=== PATIENT | female | born 1990 | race Caucasian/White ===

== ENCOUNTER 2020-06-18 17:35 | Outpatient (REF) | payer BC, SELFPAY ==
--- NOTE | 2020-06-18 18:15 | MR_ITS ---
EXAMINATION: MR BREAST WITHOUT AND WITH CONTRAST, BILATERAL CLINICAL INFORMATION: 1 year follow-up of previous inferior enhancement in the 3 o'clock position, retroareolar region. High-risk screening. COMPARISON: Ultrasound 05/04/2019, breast MRI 05/01/2019 TECHNIQUE: Imaging was performed with a dedicated breast coil. Prior to the administration of contrast, bilateral axial T1 and bilateral axial T2 weighted sequences were obtained. After the uneventful administration of?7.5 mL of Gadavist, dynamic contrast-enhanced VIBRANT series through the breasts in the axial plane were performed. Subtracted images were performed and reviewed. A delayed sagittal sequence through both breasts was acquired. Additionally, CAD post-processing, including maximum intensity projections, 3-D reconstructions and kinetic analysis, were performed an independent workstation and reviewed by the interpreting radiologist is a portion of this exam. FINDINGS: There is mild to moderate background enhancement. LEFT BREAST: Small area of tnl-mbzm-vexy enhancement in the retroareolar region of the left breast which is progressive in nature measuring 0.6 cm in size and is somewhat less prominent compared to the 05/01/2019 examination. There are multiple patchy areas of ukn-hqoh-eaco enhancement which are slightly more prominent within the left breast, compared to the right. These are new compared to the prior study. For example, patchy areas of xdt-wrss-bnaf enhancement are demonstrated at 3 and 4 o'clock, mid to posterior depth respectively (image 65, image 75 , series 101). These findings, while there are asymmetric, most likely represent background parenchymal enhancement. No definite suspicious dxg-timl-orfc or mass-like enhancement within the left breast. No suspicious mass-like or ypl-ucbr-zmtn enhancement. No abnormal skin thickening or nipple retraction. No abnormal architectural distortion. Review of the T2-weighted images demonstrates no fibrocystic changes or dilated ducts. Review of kinetic images reveals no additional findings. RIGHT BREAST: Tiny stable focus of enhancement in the upper inner quadrant. No suspicious mass-like or kup-xsmg-wbdt enhancement. No abnormal skin thickening or nipple retraction. No abnormal architectural distortion. Review of the T2-weighted images demonstrates no fibrocystic changes or dilated ducts. Review of kinetic images reveals no additional findings. There is no suspicious internal mammary chain or axillary adenopathy. Limited views of the chest and abdomen are unremarkable. MR/MR breast BI wo/w con IMPRESSION: 1. Mildly limited study secondary to background parenchymal enhancement. 2. Less prominent probably benign abp-rbbv-thxm enhancement left breast, retroareolar region. 3. Probably benign gfz-kuug-rvsn enhancement in the lower outer left breast. 4. No convincing MR specific evidence of malignancy within the right breast. ASSESSMENT: LEFT BREAST: BI-RADS 3 - Probably benign finding (s). Short interval followup suggested. RIGHT BREAST: BI-RADS 1-Negative RECOMMENDATIONS: Recommend follow-up MRI in 6-12 months' time with attention to the left breast findings discussed above.
== END 2020-06-18 17:36 | disposition home or self-care (01) ==
LOC: HO.MRI 17:35
PROVIDERS: Visit Provider Nurse Practitioner Family
DX: N64.59 Other signs and symptoms in breast (principal); Z91.89 Other specified personal risk factors, not elsewhere classified
CPT/HCPCS: 77049; A9585

== ENCOUNTER → 2020-06-25 15:52 | Outpatient (BNVA) | payer BC, SELFPAY | PROVIDERS: PCP Nurse Practitioner Family; Visit Provider Surgery ==

== ENCOUNTER → 2020-07-16 09:39 | Outpatient (BNVA) | payer BC, SELFPAY | PROVIDERS: PCP Nurse Practitioner Family; Visit Provider Surgery ==

== ENCOUNTER 2020-10-02 06:50 | Outpatient (REF) | payer BC, SELFPAY ==
[2020-10-02 11:26] LABS: MANUAL DIFF FLAG NO
[2020-10-02 11:38] LABS: Basophils Percent Auto 0.6 % (0-2); Eosinophils Absolute Auto 0.3 X10*3/uL (0.0-0.4); Eosinophils Percent Auto 4.8 % (0-4); Hematocrit 39.3 % (37-47); Hemoglobin 12.8 g/dl (12.0-16.0); Imm Gran Abs Auto 0.02 X10*3/uL (0.00-0.03); Imm Gran Pct Auto 0.4 % (0.0-0.4); Lymphocytes Percent Auto 38.2 % (20-40); Mean Corpuscular HGB Conc 32.6 g/dl (31.0-35.0); Mean Corpuscular Hemoglobin 30.7 pg (27.0-33.0); Mean Corpuscular Volume 94.2 fL (80-98); Monocytes Absolute Auto 0.4 X10*3/uL (0.1-1.2); Monocytes Percent Auto 8.2 % (2-11); Neutrophils Absolute Auto 2.5 X10*3/uL (2.0-8.3); Neutrophils Percent Auto 47.8 % (45-73); Platelet Count 250 X10*3/uL (160-400); Red Blood Count 4.17 X10*6/uL (4.20-5.50); Red Cell Distribution Width 12.6 % (11.0-16.0); White Blood Count 5.2 X10*3/uL (4.8-10.8)
[2020-10-02 11:57] LABS: Alanine Aminotransferase 12 U/L (0-31); Albumin Level 4.1 g/dL (3.5-5.0); Alkaline Phosphatase 46 U/L (39-117); Anion Gap 11 (12-20); Aspartate Amino Transferase 16 U/L (5-31); Bilirubin Total 0.5 mg/dL (0.0-1.0); Blood Urea Nitrogen 15 mg/dL (9-16); Calcium 9.4 mg/dL (8.4-10.2); Carbon Dioxide 26 mmol/L (22-29); Chloride 103 mmol/L (96-108); Cholesterol 232 mg/dL; Estimated Glomerular Filt Rate > 60; Glucose Fasting 78 mg/dL (60-99); HDL Cholesterol 80 mg/dL; Iron 116 mcg/dL (30-160); LDL Cholesterol Calculated 137 mg/dl; Percent Iron Saturation 32 % (15-50); Potassium 4.8 mmol/L (3.3-5.1); Sodium 135 mmol/L (135-145); Total Iron Binding Capacity 360 mcg/dL (228-428); Total Protein 6.7 g/dL (6.5-8.0); Triglycerides 76 mg/dL; Unsaturated Iron Binding 244 ug/dL
[2020-10-02 12:22] LABS: Folate 13.4 ng/mL (> or = 4.0); TSH reflex Free T4 0.78 uIU/mL (0.32-4.0); Vitamin B12 505 pg/mL (200-900)
== END 2020-10-02 06:51 | disposition home or self-care (01) ==
LOC: HO.HMGCLDS 06:50
PROVIDERS: PCP Nurse Practitioner Family; Visit Provider Nurse Practitioner Family
DX: Z00.00 Encounter for general adult medical examination without abnormal findings (principal)
CPT/HCPCS: 36415; 80053; 80061; 82607; 82746; 83540; 84443; 85025

== ENCOUNTER 2020-12-31 18:56 | Outpatient (REF) | payer BC, SELFPAY ==
--- NOTE | ~2020-12-31 | MR_ITS ---
EXAMINATION: MR BREAST WITHOUT AND WITH CONTRAST, BILATERAL CLINICAL INFORMATION: Follow-up probably benign nonmasslike enhancement left breast, retroareolar region. Follow-up probably benign nonmasslike enhancement, left breast, lower outer quadrant. COMPARISON: MRI 06/18/2020, 05/01/2019 TECHNIQUE: Imaging was performed with a dedicated breast coil. Prior to the administration of contrast, bilateral axial T1 and bilateral axial T2 weighted sequences were obtained. After the uneventful administration of?7 mL of Gadavist, dynamic contrast-enhanced VIBRANT series through the breasts in the axial plane were performed. Subtracted images were performed and reviewed. A delayed sagittal sequence through both breasts was acquired. Additionally, CAD post-processing, including maximum intensity projections, 3-D reconstructions and kinetic analysis, were performed an independent workstation and reviewed by the interpreting radiologist is a portion of this exam. FINDINGS: The patient's fibroglandular tissue demonstrates mild background enhancement. LEFT BREAST: Stable nonmasslike enhancement in the retroareolar breast, 4:00 position, measuring 6-7 mm on today's examination (image 73, series 102). Finding is stable compared to the 05/01/2019 MRI. Finding is below threshold on today's evaluation. Overall, the finding is less prominent compared to multiple prior MRIs and is considered benign. No persistent nonmasslike enhancement along the 3:00 and 4:00 axis. No new suspicious nonmasslike or masslike enhancement. No abnormal architectural distortion. Review of the T2 weighted images demonstrates no fibrocystic changes or dilated ducts. Review of kinetic images reveals no additional findings. RIGHT BREAST: No suspicious masslike or non-masslike enhancement. No abnormal skin thickening or nipple retraction. No abnormal architectural distortion. Review of the T2 weighted images demonstrates no fibrocystic changes or dilated ducts. Review of kinetic images reveals no additional findings. There is no suspicious internal mammary chain or axillary adenopathy. Limited views of the chest and abdomen are unremarkable. MR/MR breast BI wo/w con IMPRESSION: Less prominent enhancement in the retroareolar region of the left breast. Resolved nonmasslike enhancement in the 3 and 4:00 positions of the left breast. No MR specific evidence of malignancy in either breast. ASSESSMENT: LEFT BREAST: BI-RADS 2 - Benign Findings. RIGHT BREAST: BI-RADS 2 - Benign Findings. RECOMMENDATIONS: Clinical follow-up. Continued annual mammographic surveillance. Further breast MRI as risk factors dictate.
== END 2020-12-31 18:57 | disposition home or self-care (01) ==
LOC: HO.MRI 18:56
PROVIDERS: Absent Provider Surgery; PCP Nurse Practitioner Family; Visit Provider Nurse Practitioner Family
DX: Z91.89 Other specified personal risk factors, not elsewhere classified (principal); N64.59 Other signs and symptoms in breast
CPT/HCPCS: 77049; A9585

== ENCOUNTER → 2021-01-30 09:32 | Outpatient (BNVA) | payer BC, SELFPAY | PROVIDERS: PCP Nurse Practitioner Family; Visit Provider Surgery ==

== ENCOUNTER → 2021-08-04 09:55 | Outpatient (BNVA) | payer BC, SELFPAY | PROVIDERS: PCP Nurse Practitioner Family; Visit Provider Surgery | DX: Z51.89 Encounter for other specified aftercare (principal); Z91.89 Other specified personal risk factors, not elsewhere classified; Z79.899 Other long term (current) drug therapy; Z80.3 Family history of malignant neoplasm of breast | CPT/HCPCS: 99212 ==

== ENCOUNTER 2022-02-02 18:01 | Outpatient (REF) | payer BC, SELFPAY ==
--- NOTE | ~2022-02-02 | MR_ITS ---
EXAMINATION: MR BREAST WITHOUT AND WITH CONTRAST, BILATERAL CLINICAL INFORMATION: 31-year-old for high-risk screening. Prior history of left breast nipple discharge and non-mass enhancement left breast retroareolar position. COMPARISON: MRI 12/31/2020, 06/18/2020, 05/01/2019. TECHNIQUE: Imaging was performed with a dedicated breast coil. Prior to the administration of contrast, bilateral axial T1 and bilateral axial T2-weighted sequences were obtained. After the uneventful administration of?7.5 mL of Gadavist, dynamic contrast-enhanced VIBRANT series through the breasts in the axial plane were performed. Subtracted images were performed and reviewed. A delayed sagittal sequence through both breasts was acquired. Additionally, CAD post-processing, including maximum intensity projections, 3-D reconstructions and kinetic analysis, was performed an independent workstation and reviewed by the interpreting radiologist as a portion of this exam. FINDINGS: The patient's fibroglandular tissue demonstrates moderate background enhancement. LEFT BREAST: No suspicious mass-like or ypo-irjx-jfnl enhancement. No abnormal skin thickening or nipple retraction. No abnormal architectural distortion. The previously described area of non-mass enhancement in the retroareolar position is no longer visualized. Review of the T2-weighted images demonstrates no fibrocystic changes or dilated ducts. Review of kinetic images reveals no additional findings. RIGHT BREAST: No suspicious mass-like or yfd-ycis-idtv enhancement. No abnormal skin thickening or nipple retraction. There is a stable oval focus of enhancement at 9 o'clock posteriorly. This may represent a small intramammary lymph node. No abnormal architectural distortion. Review of the T2-weighted images demonstrates no fibrocystic changes or dilated ducts. Review of kinetic images reveals no additional findings. There is no suspicious internal mammary chain or axillary adenopathy. Limited views of the chest and abdomen are unremarkable. MR/MR breast BI wo/w con IMPRESSION: No persistent area of enhancement left breast retroareolar position. Small intramammary lymph node right breast. No MR findings suspicious of malignancy. ASSESSMENT: Left Breast: BI-RADS 2 - Benign Right Breast: BI-RADS 2 - Benign RECOMMENDATIONS: Continued routine MRI as per high-risk protocol.
== END 2022-02-02 18:02 | disposition home or self-care (01) ==
LOC: HO.MRI 18:01
PROVIDERS: Visit Provider Surgery
DX: Z12.39 Encounter for other screening for malignant neoplasm of breast (principal); Z91.89 Other specified personal risk factors, not elsewhere classified; Z80.3 Family history of malignant neoplasm of breast
CPT/HCPCS: 77049; A9585

== ENCOUNTER 2022-04-12 12:34 | Outpatient (REF) | payer OTHER, SELFPAY ==
[2022-04-12 12:47] VITALS: BMI 25.7
[2022-04-12 12:48] VITALS: BP 131/74; PULSE 95; RESP 16; TEMP 36.8; O2SAT 100
[2022-04-12 13:34] VITALS: BP 124/84; PULSE 77; RESP 16; O2SAT 100
--- NOTE | 2022-04-12 14:40 | P.OP_ITS ---
Operative Note Operative Note Date of Service: 04/12/22 Narrative: Preoperative diagnosis: Lipoma right forearm Postoperative diagnosis: Same Procedure: Excision lipoma right forearm Surgeon: Mauricio Leyva MD Senior Online Marketing Manager: None Anesthesia: Local Sensorcaine 0.5% with epinephrine Indications for procedure: 31-year-old female patient with an enlarging fatty lump located in the right forearm, documented by ultrasound. Patient is requesting excision. Operative findings: 1 cm lipoma right forearm Specimen: Lipoma right forearm Estimated blood loss: Less than 1 mL Complications: None Procedure details: Patient was brought to the minor surgery suite and placed in a supine position with her right arm over her abdomen. The site of surgery was confirmed by the patient in the right forearm posteriorly. After assuring informed consent the skin was prepped with Betadine and draped in a sterile fashion. Local anesthesia was infiltrated in a longitudinal fashion over the lipoma. A 1 cm incision was then made with a scalpel, carried out through subcutaneous tissue up to the lipoma. The lipoma was then sharply excised from the surrounding subcutaneous tissue. This was passed off the table and sent to pathology for further examination. After assuring adequate hemostasis the skin was closed using a running subcuticular 4-0 Polysorb suture. Steri-Strips, 2 x 2 gauze and Tegaderm were then applied. The patient tolerated the procedure well. She was discharged to home in stable condition.
== END 2022-04-12 12:35 | disposition home or self-care (01) ==
LOC: HO.MS 12:34
PROVIDERS: Visit Provider Surgery
PROC: (CPT 25075; principal; 2022-04-12 13:00)
DX: D17.21 Benign lipomatous neoplasm of skin and subcutaneous tissue of right arm (principal); Z15.01 Genetic susceptibility to malignant neoplasm of breast; Z80.3 Family history of malignant neoplasm of breast; Z80.0 Family history of malignant neoplasm of digestive organs; Z79.899 Other long term (current) drug therapy; Z88.2 Allergy status to sulfonamides; Z88.8 Allergy status to other drugs, medicaments and biological substances
CPT/HCPCS: 25075; 88304

== ENCOUNTER → 2022-06-21 08:07 | Outpatient (BNVA) | payer BC, SELFPAY | PROVIDERS: PCP Nurse Practitioner Family; Visit Provider Internal Medicine | DX: Z13.89 Encounter for screening for other disorder (principal) ==

== ENCOUNTER → 2022-10-12 15:38 | Outpatient (BNVA) | payer BC, SELFPAY | PROVIDERS: PCP Nurse Practitioner Family; Visit Provider Surgery ==

== ENCOUNTER 2023-01-10 07:04 | Day surgery (SDC) | payer BC, SELFPAY ==
[2023-01-06 11:05] VITALS: BMI 27.5
--- NOTE | 2023-01-10 07:45 | MHC.SHP ---
Pre-Procedural Eval Section A Date of Service: 01/10/23 The patient is an INPATIENT: No The History & Physical has been completed within 30 days and I have reviewed it.: No Section B Chief Complaint: Screening,Family history of malignant neoplasm of Relevant Family History (Specify if Yes): Yes Relevant Social History: None Present Medications: see Short Stay Collaborative assessment Medical History: Significant History (Back pain, hyperlipidemia) History of Previous Operations: Relevant previous surgery/procedure and date(s) (History of right breast biopsy S/P excision of lipoma (04/12/22)) Allergies: Allergies Allergy/AdvReac Type Severity Reaction Status Date / Time codeine Allergy Unknown vomiting Verified 10/25/22 16:42 Sulfa (Sulfonamide Allergy Unknown vomitting, Verified 10/25/22 16:42 Antibiotics) vomiting Review of Systems Sugical H&P ROS: Negative: Constitution, Cardiovascular, Respiratory and Gastrointestinal Exam Surgical H&P Exam: Normal: Heart, Normal: Lungs, Normal: Extremities and Normal: Abdomen Plan Diagnosis/Plan: Unchanged I have reviewed the history and physical and performed a pertinent physical examination on my patient. No changes have occurred unless specified. Time Spent With Patient Time: Total time managing care of this patient today ____ minutes.
[2023-01-10 07:48] VITALS: BP 123/86; PULSE 89; RESP 16; TEMP 36.7; O2SAT 100; BMI 28.7
[2023-01-10 07:52] LABS: UPreg QC Valid YES; Urine Pregnancy NEGATIVE (NEGATIVE)
--- NOTE | 2023-01-10 08:29 | W.PM.OPN ---
Operative Note Operative Note Date of Service: 01/10/23 Narrative: COLONOSCOPY TILL CECUM WITH BIOPSIES Pre-op diagnosis: Colon cancer screening, rectal bleeding, monoallelic MUTYH, family history positive for colon cancer (Paternal GF in his 30's) and breast cancer on paternal side. Father had multiple colon polyps Post-op diagnosis:? Colon polyp, diverticulosis, hemorrhoids Endoscopist:? Armando Tarango MD Anesthesia:?MAC Consent: Indications for the procedure and potential complications of bleeding, perforation, reaction to medications and missed diagnosis were discussed with the patient and informed consent was obtained. Instrument: Olympus PCF H 190 L variable stiffness pediatric colonoscope Monitoring: Vital signs and clinical assessment, intermittent blood pressure monitoring, continuous EKG monitoring, Pulse oximetry and Carbon Dioxide monitoring were done throughout the procedure. Please see anesthesia flowsheet. Colon withdrawl time was 15 minutes. Procedure: The patient was placed in the left lateral decubitis position and pre-procedure medications were administered. After a digital rectal examination of the ano-rectum, the video colonoscope was inserted into the rectum and advanced through the colon to the cecum. The colonoscope was slowly withdrawn in a retrograde panoramic fashion and the colon mucosa was carefully examined including a retroflexed view of the rectum. Findings and interventions are described below. Procedure Difficulty: Without difficulty Findings: Terminal Ileum: Not evaluated Cecum: Normal Ascending Colon: Normal Transverse Colon: Normal Descending Colon: Normal Sigmoid Colon: Mild diverticulosis Rectum: A 2-3 mm diminutive appearing polyp - removed with a cold biopsy Ano-rectum: Small internal hemorrhoids Colon preparation: Good Impression and Post Procedure Diagnosis: Colonoscopy Findings: One small polyp removed Mild diverticulosis seen in the sigmoid colon Small hemorrhoids on retroflexed exam. Plan: Await pathology results Patient has an appointment on 01/17/23 in the GI [facility] with Dr Jauregui. Repeat Colonoscopy interval based on path results - in 5 years if polyps are adenomatous and 10 years if polyps are hyperplastic. Above findings were reviewed with the patient and colon polyps and diverticulosis handouts were given in the discharge area ADDENDUM: BIOPSIES SHOWED: Colon, rectal polyp: Colonic mucosa with no specific change; negative for adenomatous dysplasia. FU colonoscopy advised in 5 yrs due to a positive family hx of advanced adenoma in pt's Dad at age less than 50 yrs
--- NOTE | 2023-01-10 08:40 | HO.ANESPROP2 ---
[facility] Active Problems Active Problems: All Active Problems (Updated 10/25/22 @ 17:01 by YOAV Cox) Lumbar back pain (Acute) Monoallelic mutation of MUTYH gene (Acute) Family history of colon cancer (Acute) Family history of colonic polyps (Acute) Lipoma of arm (Acute) Yeast cystitis (Acute) Cellulitis (Acute) Encounter for physical examination (Acute) Dyslipidemia (Acute) Abnormal breast tissue (Acute) At high risk for breast cancer (Acute) Illness (Acute) Past Medical History Medical History Eczema Family History Family History Father Asthma Allergic rhinitis Rheumatoid arthritis Colon polyps FH: testicular cancer, Onset Age: 16 Mother History of skin cancer Paternal Grandfather Colon cancer, Onset Age: 75 Paternal Aunt Breast cancer Sister No problems noted. Sister No problems noted. Paternal Grandmother Breast cancer Paternal Uncle Mouth cancer Maternal Aunt History of uterine cancer Paternal Aunt Breast cancer Paternal Aunt Breast cancer Family/Other Breast cancer Mental health disorder Substance use disorder Family history of problems with anesthesia: No Surgical History Surgical History History of right breast biopsy S/P excision of lipoma (04/12/22) History of Problems with Anesthesia: No Social History Social History Housing: Apartment Alcohol intake: current Alcohol intake frequency: holidays/special occasions only Patient Tobacco Use Status: Never used Tobacco e-Cigarette/Vaping Use: Never Used Second Hand Smoke Exposure: No Are you DNR?: No Advance Directives: No Advance Directives Information Provided: Yes service: No Current occupational status: employed Current occupation: [employer] Current occupational exposures/hazards: Yes Cognitive needs: No Hearing needs: No Vision needs: No Meds Allergies Allergy/AdvReac Type Severity Reaction Status Date / Time codeine Allergy Unknown vomiting Verified 10/25/22 16:42 Sulfa (Sulfonamide Allergy Unknown vomitting, Verified 10/25/22 16:42 Antibiotics) vomiting Home Medications Medication Instructions Recorded Confirmed Last Taken Type desogestrel 0.15 mg-ethinyl 1 tab PO DAILY 03/12/20 10/25/22 01/09/23 History estradiol 0.03 mg tablet fexofenadine 180 mg tablet 180 mg PO DAILY 10/25/22 10/25/22 01/09/23 History (Keiko Allergy) fluticasone propionate 50 1 spray intranasal DAILY 10/25/22 10/25/22 Unknown History mcg/actuation nasal spray,suspension (Allergy Relief (fluticasone)) Exam Exam Date and Time: January 10, 2023 0840 Height,Weight and Vital Signs: Height 5 ft 3 in Weight 73.482 kg Last Vital Signs Temp 98.1 F 01/10/23 07:48 Pulse 89 01/10/23 07:48 Resp 16 01/10/23 07:48 BP 123/86 01/10/23 07:48 Pulse Ox 100 01/10/23 07:48 O2 Del Method Room Air 01/10/23 07:48 Pertinent Lab Results Pertinent Lab Results: Laboratory Tests 01/10/23 07:30 Urine Test NEGATIVE Airway Mallampati Class: I TM Dist: >3cm Neck ROM: Full Heart: rrr Lungs: cta Assessment and Plan Assessment Anesthesia Assessment: Anesthesia Plan Discussed and Chart Reviewed Final Anesthetic Review Family History of Problems with Anesthesia: No History of Problems with Anesthesia: No NPO: Yes ASA Class: II Final Preanesthetic Review: No Changes in Pt Med Stat, Meds/Allgs Chart Reviewed and Consent Obtained/Reviewed Patient Risk: Intermediate Procedure Risk: Intermediate Anesthetic Plan Anesthetic Plan: MAC: Disposition: Standard PACU
[2023-01-10 09:13] VITALS: BP 95/55; PULSE 70; RESP 16; TEMP 36.8; O2SAT 99
[2023-01-10 09:28] VITALS: BP 114/72; PULSE 7; RESP 18; TEMP 37.2; O2SAT 99
== END 2023-01-10 10:24 | disposition home or self-care (01) ==
PROVIDERS: Anesthesiology; PCP Nurse Practitioner Family; Visit Provider Internal Medicine Gastroenterology
PROC: 0DJD8ZZ Inspection of Lower Intestinal Tract, Via Natural or Artificial Opening Endoscopic (ICD-10-PCS; CPT 45378; principal; 2023-01-10 08:30)
DX: Z12.11 Encounter for screening for malignant neoplasm of colon (principal); K62.1 Rectal polyp; K57.30 Diverticulosis of large intestine without perforation or abscess without bleeding; K64.8 Other hemorrhoids; Z83.71 Family history of colonic polyps; E78.5 Hyperlipidemia, unspecified; Z79.899 Other long term (current) drug therapy
CPT/HCPCS: 45380; 81025; 88305; J2250

== ENCOUNTER → 2023-01-10 07:04 | Outpatient (BNV) | payer BC, SELFPAY | PROVIDERS: PCP Nurse Practitioner Family; Visit Provider Internal Medicine Gastroenterology | DX: Z12.11 Encounter for screening for malignant neoplasm of colon (principal); Z86.010 Personal history of colon polyps; K62.5 Hemorrhage of anus and rectum; D12.8 Benign neoplasm of rectum; K57.30 Diverticulosis of large intestine without perforation or abscess without bleeding; K64.8 Other hemorrhoids | CPT/HCPCS: 45380 ==

== ENCOUNTER 2023-01-17 10:29 | Outpatient (AMB) | payer BC, SELFPAY ==
--- NOTE | 2023-01-17 10:39 | MHC.OFFVIS ---
Intake Intake Visit Reasons: follow up from procedure Allergies codeine Allergy (Unknown, Verified 10/25/22 16:42) vomiting Sulfa (Sulfonamide Antibiotics) Allergy (Unknown, Verified 10/25/22 16:42) vomitting, vomiting HPI HPI Comments History of Present Illness Details This is a 31-year-old female with monoallelic MUTYH (record under scanned lab report 07/31/20) family history positive for colon cancer and breast cancer on paternal side (although no FDR affected), who is here to discuss colon cancer screening. Patient reports that due to significant family history, she underwent genetic testing which showed slightly increased risk of colon cancer and she was therefore advised colonoscopies every 3 year. Her last colonoscopy was in 2019, see below. Currently, she does not have any abdominal pain, nausea, vomiting, changes in bowel habits. She reports occasional scant blood on wiping. colo 06/2019: good prep. diverticulosis. colon polyp path was normal tissue. 01/10/23: Colon preparation:? Good? Colonoscopy Findings: One small polyp removed Mild diverticulosis seen in the sigmoid colon Small hemorrhoids on retroflexed exam. Path: Colon, rectal polyp:? Colonic mucosa with no specific change; negative for adenomatous dysplasia. 01/17/23: Seen as televisit today. No acute gastrointestinal issues. [place] findings reviewed and pt reassured. [facility] Medical History Eczema Surgical History History of right breast biopsy S/P excision of lipoma (04/12/22) Family History Father Asthma Allergic rhinitis Rheumatoid arthritis Colon polyps FH: testicular cancer, Onset Age: 16 Mother History of skin cancer Paternal Grandfather Colon cancer, Onset Age: 75 Paternal Aunt Breast cancer Sister No problems noted. Sister No problems noted. Paternal Grandmother Breast cancer Paternal Uncle Mouth cancer Maternal Aunt History of uterine cancer Paternal Aunt Breast cancer Paternal Aunt Breast cancer Family/Other Breast cancer Mental health disorder Substance use disorder Social History Housing: Apartment Alcohol intake: current Alcohol intake frequency: holidays/special occasions only Patient Tobacco Use Status: Never used Tobacco e-Cigarette/Vaping Use: Never Used Second Hand Smoke Exposure: No service: No Current occupational status: employed Current occupation: [employer] Current occupational exposures/hazards: Yes Cognitive needs: No Hearing needs: No Vision needs: No Review of Systems Const All systems reviewed & are unremarkable except as noted in HPI and below Physical Exam video visit: NAD Nonitceric Speaking in full sentences No facial asymmetry Assessment & Plan Assessment & Plan (1) Family history of colonic polyps: Code(s): Z83.71 - Family history of colonic polyps (2) Family history of colon cancer: Code(s): Z80.0 - Family history of malignant neoplasm of digestive organs (3) Monoallelic mutation of MUTYH gene: Code(s): Z15.89 - Genetic susceptibility to other disease Plan I reviewed her genetics testing document and went over it with the patient extensively that MAP is an autosomal recessive condition i.e having a single allele makes her carrier and not at a clinically significant increased risk for colon cancer unless any of her first degree relatives had colon cancer. Given pedigree and trend of fam hx suspect father may have MUTYH but pt is not sure. No polyps noted on colo done last week. Next colonoscopy interval will be based on if father ever had advanced adenoma and at what age. Pt will relay this information to the office over the next few weeks. As per ASGE and NCCN guidelines for monoallelic MUTYH : if father/FDR had colorectal cancer or an advanced adenoma, she will need colonoscopy every 5y. Otherwise will revert to average screening intervals. Telehealth Telehealth Location of provider rendering services: practice address Location of patient: address on file Patient Identification confirmed using: Name, : Yes Telehealth method: video Patient verbally consented to treatment: Yes Patient verbally consented to billing insurance company: Yes Patient informed of any privacy concerns related to visit: Yes Minutes spent on Phone/Video with Pt.: 12 Coding Level of Care Code Tele Est Pt Level 4 (91075) Diagnoses Family history of colonic polyps Z83.71 Family history of colon cancer Z80.0 Monoallelic mutation of MUTYH gene Z15.89
== END 2023-01-17 10:45 | disposition home or self-care (01) ==
LOC: HO.HGI 10:29
PROVIDERS: PCP Nurse Practitioner Family; Visit Provider Internal Medicine
DX: Z83.71 Family history of colonic polyps (principal); Z80.0 Family history of malignant neoplasm of digestive organs; Z15.89 Genetic susceptibility to other disease
CPT/HCPCS: 99214

== ENCOUNTER → 2023-01-17 10:29 | Outpatient (BNVA) | payer BC, SELFPAY | PROVIDERS: PCP Nurse Practitioner Family; Visit Provider Internal Medicine ==

== ENCOUNTER 2023-03-18 16:56 | Outpatient (REF) | payer BC, SELFPAY ==
--- NOTE | ~2023-03-18 | MR_ITS ---
EXAMINATION: MR BREAST WITHOUT AND WITH CONTRAST, BILATERAL CLINICAL INFORMATION: High-risk screening. COMPARISON: MRI 02/02/2022, 12/31/2020, 06/18/2020, 05/01/2019 TECHNIQUE: Imaging was performed with a dedicated breast coil. Prior to the administration of contrast, bilateral axial T1 and bilateral axial T2 weighted sequences were obtained. After the uneventful administration of?7.5 mL of Gadavist, dynamic contrast-enhanced VIBRANT series through the breasts in the axial plane were performed. Subtracted images were performed and reviewed. A delayed sagittal sequence through both breasts was acquired. Additionally, CAD post-processing, including maximum intensity projections, 3-D reconstructions and kinetic analysis, were performed an independent workstation and reviewed by the interpreting radiologist is a portion of this exam. FINDINGS: The patient's fibroglandular tissue demonstrates mild background enhancement. LEFT BREAST: No suspicious masslike or non-masslike enhancement. No abnormal skin thickening or nipple retraction. No abnormal architectural distortion. Review of the T2 weighted images demonstrates no fibrocystic changes or dilated ducts. Review of kinetic images reveals no additional findings. RIGHT BREAST: Stable focus of enhancement, lower inner quadrant, anterior depth. No suspicious masslike or non-masslike enhancement. No abnormal skin thickening or nipple retraction. No abnormal architectural distortion. Review of the T2 weighted images demonstrates no fibrocystic changes or dilated ducts. Review of kinetic images reveals no additional findings. There is no suspicious internal mammary chain or axillary adenopathy. Limited views of the chest and abdomen are unremarkable. MR/MR breast BI wo/w con IMPRESSION: No MR specific evidence of malignancy. ASSESSMENT: LEFT BREAST: BI-RADS 1-Negative RIGHT BREAST: BI-RADS 1-Negative RECOMMENDATIONS: Clinical follow-up. Continued annual mammographic surveillance per high-risk protocol as appropriate. Further breast MRI as risk factors dictate.
[2023-03-18] MEDS: gadobutroL 7.5 ML VIAL IVPUSH (17:58)
== END 2023-03-18 16:57 | disposition home or self-care (01) ==
LOC: HO.MRI 16:56
PROVIDERS: PCP Nurse Practitioner Family; Visit Provider Surgery
DX: Z91.89 Other specified personal risk factors, not elsewhere classified (principal)
CPT/HCPCS: 77049; A9585

== ENCOUNTER 2023-06-14 15:37 | Outpatient (AMB) | payer BC, SELFPAY ==
--- NOTE | 2023-06-14 15:38 | MHC.OFFVIS ---
Intake Vital Signs 06/14/23 15:45 Height 5 ft 3 in Weight 163 lb BMI 28.9 BP 120/80 Blood Pressure Location Lt brachial Position Sitting Intake Visit Reasons: 6 month follow up, breast exam Intake Note: Patient is seen in office for 6 month follow-up, breast examination. Patient c/o:denies any concerns, states she is turning 33 soon and question if she can start getting mammograms B MRI:03/14/23 Supervisor Required: No Assistant Program Manager: Assistant Program Manager Present Accompanied by: Self / Same As Patient Allergies codeine Allergy (Unknown, Verified 06/14/23 15:46) vomiting Sulfa (Sulfonamide Antibiotics) Allergy (Unknown, Verified 06/14/23 15:46) vomitting, vomiting Medication List - Last Reconciled 06/15/23 by Mauricio Leyva MD desogestrel-ethinyl estradiol 0.15-0.03 mg 1 tab PO DAILY fexofenadine (Keiko Allergy) 180 mg PO DAILY fluticasone propionate 50 mcg/actuation (Allergy Relief (fluticasone)) 1 spray intranasal DAILY HPI HPI Comments History of Present Illness Details Iveth Gonzalez is a 32-year-old female patient returning for a high risk breast evaluation.? Family history is significant for a paternal aunt with breast cancer diagnosed at the age of 45 and a 2nd paternal aunt with breast cancer identified at the age of 48, a paternal grandfather with colon cancer at the age of 75, her paternal grandmother with colon cancer at the age of 75 and a paternal great grandmother with breast cancer at the age of 50.? She was previously evaluated by Dr. Stevenson on 11/30/2016 determined to have a lifetime risk of breast cancer of 24.6% placing her at a high risk category.? She underwent bilateral breast MRIs on ?06/18/2020 which revealed a small area of non mass like enhancement in the retroareolar region of the left breast which is progressive in nature measuring 0.6 cm in size and is somewhat less prominent compared to the 05/01/2019 examination.? This was felt to be probably benign but a short term follow up MRI was recommended in 6-12 months.? Follow up MRI on 12/31/2020 revealed only benign findings bilaterally (BI-RADS 2 bilaterally).?MRI on 03/18/2023 revealed no MR specific evidence of malignancy in both breasts (BI-RADS 1 bilaterally). Patient previously underwent [facility] genetic testing on 11/30/2016 which revealed a heterozygous MUTYH mutation.? Repeat Genetic testing on 07/16/2020 revealed a breast cancer risk score of 24% and was positive for the heterozygous MUTYH mutation.? No other new mutations or VUS were identified. She underwent screening colonoscopy (Dr. Tarango) 2 years ago, ?which was normal. A repeat was recommended in three years. ? Screening breast ultrasound performed on 07/05/2018 revealed no suspicious findings in either breast (BI-RADS 1). Screening mammogram is planned for 33 years old. ? Patient is and is currently on control pills.? She has a history of a prior right breast needle core biopsy as a 14-year-old which was benign.? She denies any other breast problems or breast surgery.? She denies current nipple discharge.? She denies Ashkenazi Denominational heritage.?? PFSH Medical History Eczema Surgical History S/P excision of lipoma (04/12/22) History of right breast biopsy Family History Father Asthma Allergic rhinitis Rheumatoid arthritis Colon polyps FH: testicular cancer, Onset Age: 16 Mother History of skin cancer Paternal Grandfather Colon cancer, Onset Age: 75 Paternal Aunt Breast cancer Sister No problems noted. Sister No problems noted. Paternal Grandmother Breast cancer Paternal Uncle Mouth cancer Maternal Aunt History of uterine cancer Paternal Aunt Breast cancer Paternal Aunt Breast cancer Family/Other Breast cancer Mental health disorder Substance use disorder Social History Housing: Apartment Alcohol intake: current Alcohol intake frequency: holidays/special occasions only Patient Tobacco Use Status: Never used Tobacco e-Cigarette/Vaping Use: Never Used Second Hand Smoke Exposure: No service: No Current occupational status: employed Current occupation: [employer] Current occupational exposures/hazards: Yes Cognitive needs: No Hearing needs: No Vision needs: No Review of Systems Const Denies chills, Denies fever(s) and Denies headache(s) ENT Denies dizziness and Denies headache(s) Card Denies chest pain, Denies rapid heart rate, Denies palpitations and Denies slow heart rate Resp Denies chest congestion, Denies cough, Denies pain on inspiration and Denies wheezing GI Denies abdominal pain, Denies bloating, Denies change in stool character, Denies constipation, Denies diarrhea, Denies nausea, Denies vomiting and Denies hematemesis Denies nipple discharge Musc Denies back pain, Denies arthralgias, Denies joint swelling and Denies numbness Skin/Breast Denies breast swelling, Denies breast skin changes, Denies breast pain, Denies breast mass, Denies change in breast shape, Denies change in pigmentation, Denies nipple discharge, Denies erythema and Denies rash Neuro Denies dizziness, Denies headache(s) and Denies numbness Psych Denies anxiety and Denies depression Endo Denies palpitations Kwame/Lymph Denies easy bleeding, Denies easy bruising and Denies lymphadenopathy Aller/Immun Denies wheezing Physical Exam Vital Signs: Last Vital Signs BP 120/80 06/14/23 15:45 BMI result Body Mass Index 28.9 Const General: healthy appearing, no acute distress and well developed Nutritional Appearance: well nourished Orientation/consciousness: patient oriented x3 Limitations: no limitations HEENT Head: Yes normocephalic and Yes atraumatic Ears: hearing grossly normal bilaterally Eyes Sclerae: sclerae normal EOM: EOMs intact bilaterally Neck Neck: Yes no lymphadenopathy and Yes trachea midline Chest Other: Left breast: No skin change, no nipple retraction, no nipple discharge, no palpable mass, no enlarged lymph nodes. Diffuse fibrocystic change. Right breast: No skin change, no nipple retraction, no nipple discharge, no palpable mass, no enlarged lymph nodes, fibrocystic changes throughout the breast. Resp Effort & Inspection: normal respiratory effort GI Inspection: Yes normal to inspection Skin General skin exam: dry skin, no ecchymosis and no erythema Neuro General: patient oriented x3 Extrem Other: Right forearm with a 1 cm round mobile soft tissue mass within the subcutaneous tissue as noted below, consistent with a lipoma. General: Yes no clubbing, cyanosis or edema Assessment & Plan Assessment & Plan (1) Family history of colon cancer: Code(s): Z80.0 - Family history of malignant neoplasm of digestive organs (2) At high risk for breast cancer: Code(s): Z91.89 - Other specified personal risk factors, not elsewhere classified (3) Family history of breast cancer: Code(s): Z80.3 - Family history of malignant neoplasm of breast Plan 32-year-old female patient returning for follow-up breast examination. Her genetic testing revealed a single MUTYH clinically significant mutation identified. Her breast cancer risk score for remaining lifetime risk is 24% placing her well above the 20% threshold for high risk. Examination today reveals no new suspicious findings in either breast. She does have bilateral dense breast tissue which is unchanged. Her most recent breast MRI revealed no suspicious findings in either breast (BI-RADS 1). I recommended starting screening mammography which will be requested six-month following her recent MRI. She will follow-up in 6 months for routine breast examination but is welcome to call sooner for any new concerns. Orders: Orders MM screening mammo BI 06/14/23 Z80.0 - Family history of malignant neoplasm of digestive organs, Z80.3 - Family history of malignant neoplasm of breast, Z91.89 - Other specified personal risk factors, not elsewhere classified Coding Level of Care Code Est Pt Level 3 (05818) Diagnoses Family history of colon cancer Z80.0 At high risk for breast cancer Z91.89 Family history of breast cancer Z80.3
[2023-06-14 15:45] VITALS: BP 120/80; BMI 28.9
== END 2023-06-14 16:04 | disposition home or self-care (01) ==
PROVIDERS: PCP Nurse Practitioner Family; Visit Provider Surgery
DX: Z80.0 Family history of malignant neoplasm of digestive organs (principal); Z80.3 Family history of malignant neoplasm of breast; Z91.89 Other specified personal risk factors, not elsewhere classified
CPT/HCPCS: 99213

== ENCOUNTER → 2023-06-14 15:37 | Outpatient (BNVA) | payer BC, SELFPAY | PROVIDERS: PCP Nurse Practitioner Family; Visit Provider Surgery ==

== ENCOUNTER 2023-10-29 06:36 | Outpatient (REF) | payer BC, SELFPAY ==
[2023-10-29 11:10] LABS: MANUAL DIFF FLAG NO
[2023-10-29 11:12] LABS: Basophils Percent Auto 0.7 % (0-2); Eosinophils Absolute Auto 0.1 X10*3/uL (0.0-0.4); Eosinophils Percent Auto 1.2 % (0-4); Hematocrit 40.8 % (37.0-47.0); Hemoglobin 13.7 g/dl (12.0-16.0); Imm Gran Abs Auto 0.02 X10*3/uL (0.00-0.03); Imm Gran Pct Auto 0.4 % (0.0-0.4); Lymphocytes Absolute Auto 1.9 X10*3/uL (1.2-4.9); Lymphocytes Percent Auto 33.3 % (20-40); Mean Corpuscular HGB Conc 33.6 g/dl (31.0-35.0); Mean Corpuscular Hemoglobin 30.9 pg (27.0-33.0); Mean Corpuscular Volume 91.9 fL (80.0-98.0); Mean Platelet Volume 9.9 fL (9.4-12.3); Monocytes Absolute Auto 0.4 X10*3/uL (0.1-1.2); Monocytes Percent Auto 7.8 % (2-11); Neutrophils Absolute Auto 3.2 x10*3/uL (2.0-8.3); Neutrophils Percent Auto 56.6 % (45-73); Platelet Count 211 X10*3/uL (160-400); Red Blood Count 4.44 X10*6/uL (4.20-5.50); Red Cell Distribution Width 12.1 % (11.0-16.0); White Blood Count 5.6 X10*3/uL (4.8-10.8)
[2023-10-29 11:14] LABS: Appearance Urine Clear; Color Urine Dark Yellow; Glucose Urine UA Negative (Negative); Leukocyte Esterase Urine Negative (Negative); Nitrite Urine Negative (Negative); PH 5.5 (5.0-9.0); UMIC TRIGGER UACC YES; Urine Blood Trace (Negative); Urine Ketones Trace mg/dL (Negative); Urine Protein Negative (Neg-Trace)
[2023-10-29 11:30] LABS: Alanine Aminotransferase 12 U/L (0-31); Albumin Level 4.3 g/dL (3.5-5.0); Alkaline Phosphatase 39 U/L (39-117); Anion Gap 15 (12-20); Aspartate Amino Transferase 17 U/L (5-31); Bilirubin Total 0.7 mg/dL (0.0-1.0); Blood Urea Nitrogen 12 mg/dL (9-16); Calcium 9.9 mg/dL (8.4-10.2); Carbon Dioxide 24 mmol/L (22-29); Chloride 102 mmol/L (96-108); Cholesterol 208 mg/dL (<200); Estimated Glomerular Filt Rate > 60; Glucose Fasting 80 mg/dL (60-99); HDL Cholesterol 84 mg/dL (>40); LDL Cholesterol Calculated 109 mg/dL (<100); Sodium 137 mmol/L (135-145); Total Protein 7.2 g/dL (6.5-8.0); Triglycerides 76 mg/dL (<150)
[2023-10-29 11:48] LABS: TSH reflex Free T4 0.83 uIU/mL (0.32-4.0)
[2023-10-29 12:00] LABS: Bacteria Urine Trace (None Seen); Hyaline Casts Urine 0-2 /LPF (0-2); WBC Urine 0-5 /HPF (0-5)
== END 2023-10-29 06:37 | disposition home or self-care (01) ==
LOC: HO.HMGCLDS 06:36
PROVIDERS: PCP Nurse Practitioner Family; Visit Provider Nurse Practitioner Family
DX: Z00.00 Encounter for general adult medical examination without abnormal findings (principal)
CPT/HCPCS: 36415; 80053; 80061; 81001; 84443; 85025

== ENCOUNTER 2023-10-31 09:04 | Outpatient (AMB) | payer BC, SELFPAY ==
--- NOTE | 2023-10-31 09:04 | MHC.PC.OV ---
Vital Signs 10/31/23 09:06 Height 5 ft 3 in Weight 160 lb BMI 28.3 BP 118/80 Blood Pressure Location Lt brachial Position Sitting Pulse 86 Pulse Source Pulse Oximeter Pulse Oximetry (%) 98 Oxygen Delivery Method Room Air Intake Visit Reasons: PE Intake Note: Patient here for physical exam. Pap: 2022 due every 3yrs. Allergies codeine Allergy (Unknown, Verified 10/31/23 10:04) vomiting Sulfa (Sulfonamide Antibiotics) Allergy (Unknown, Verified 10/31/23 10:04) vomitting, vomiting Medication List - Last Reconciled 10/31/23 by DIOMEDES Cox-IRVIN desogestrel-ethinyl estradiol 0.15-0.03 mg 1 tab PO DAILY fexofenadine (Keiko Allergy) 180 mg PO DAILY fluticasone propionate 50 mcg/actuation (Allergy Relief (fluticasone)) 1 spray intranasal DAILY lorazepam 1 mg PO DAILY PRN multivitamin 1 tab PO DAILY Tobacco use date assessed: 10/31/23 Dental Screening Dental Screen Date: 10/31/23 Did you have a dental visit in the last 12 months?: Yes Did you have a dental problem in the last 6 months where you did not have access to dental care?: No Was dental information given to patient?: Patient has dentist HPI PE HPI Details Pt is here for a PE. Labs were already performed. 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 Micro hem noted. She has had imaging and a cystoscopy in the past (saw urology), denies any pelvic pains. Pt does not smoke. Will order UA and urine cytology, Dyslipidemia: Will repeat labs for in a couple of months. 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 Sister No problems noted. Paternal Grandmother Breast cancer Paternal Uncle Mouth cancer Maternal Aunt History of uterine cancer Paternal Aunt Breast cancer Paternal Aunt Breast cancer Family/Other Breast cancer Mental health disorder Substance use disorder Social History Housing: Apartment Alcohol intake: current Alcohol intake frequency: holidays/special occasions only Patient Tobacco Use Status: Never used Tobacco e-Cigarette/Vaping Use: Never Used Second Hand Smoke Exposure: No service: No Current occupational status: employed Current occupation: [email or web address] Current occupational exposures/hazards: Yes Cognitive needs: No Hearing needs: No Vision needs: No Questionnaire PHQ-9 Over the last 2 weeks, how often have you been bothered by any of the following problems? 1. Little interest or pleasure in doing things: not at all 2. Feeling down, depressed, or hopeless: not at all 3. Trouble falling or staying asleep, or sleeping too much: not at all 4. Feeling tired or having little energy: several days 5. Poor appetite or overeating: not at all 6. Feeling bad about yourself - or that you are a failure or have let yourself or your family down: not at all 7. Trouble concentrating on things, such as reading the newspaper or watching television: not at all 8. Moving or speaking so slowly that other people could have noticed. Or the opposite - being so fidgety or restless that you have been moving around a lot more than usual: not at all 9. Thoughts that you would be better off or of hurting yourself in some way: not at all Total score: 1 Depression Screening Interpretation: Negative Depression Screening Done: Yes 10600 - PHQ-9 Billing: Yes Source: Developed by Drs. aGrrison Gomez, Essence Coats, Christian Lara and colleagues, with an educational chely from [employer] Thrive Questionnaire Date Thrive assessed: 10/31/23 I am a: Patient What is your living situation today?: I have a steady place to live Within the past 12 months, did the food you bought not last and you didn't have the money to get more?: Never true Within the past 12 months, did you worry whether your food would run out before you got money to buy more?: Never true Do you have trouble paying for medicines?: No Do you have trouble getting transportation to medical appointments?: No Do you have trouble paying your heating and electricity bill?: No Do you have trouble taking care of your child, family member or friend?: No Do you have trouble with day-to-day activities such as bathing, preparing meals, shopping, managing finances, etc.?: No Are you currently unemployed and looking for a job?: No Are you interested in more education?: No Currently or been in a relationship where the following occur: no concerns reported THRIVE Score: 0 AUDIT C Alcohol Use Questionnaire (AUDIT-C) 1. How often do you have a drink containing alcohol?: 2-4 times a month 2. How many drinks containing alcohol do you have on a typical day when you are drinking?: 1 or 2 3. How often do you have six or more drinks on one occasion?: Never Total Score: 2 Score Reviewed/Action Taken: Yes NICOLASA-7 AMB Questionnaire NICOLASA-7 Date NICOLASA - 7 assessed: 10/31/23 Feeling nervous, anxious, or on edge: 1 = Several days Not being able to stop or control worryin = Not at all Worrying too much about different things: 0 = Not at all Trouble relaxin = Not at all Being so restless that it is hard to sit still: 0 = Not at all Becoming easily annoyed or irritable: 0 = Not at all Feeling afraid as if something awful might happen: 1 = Several days Total NICOLASA-7 score (0-4 normal; 5-9 mild; 10-14 moderate; 15-21 severe): 2 Source: Developed by Drs. Garrison Gomez, Essence Coats, Christian Lara and colleagues, with an educational chely from [employer] NICOLASA-7 Assessment Billing NICOLASA-7 Assessment Tool: NICOLASA-7 Assessment 26349 Review of Systems Const Denies chills and Denies fever(s) Eyes Denies blurry vision ENT Denies vertigo, Denies dizziness and Denies sore throat Card Denies chest pain at rest, Denies chest pain with activity, Denies diaphoresis, Denies dyspnea and Denies dyspnea on exertion Resp Denies cough, Denies dyspnea, Denies dyspnea on exertion and Denies wheezing GI Denies abdominal pain, Denies melena, Denies hematochezia, Denies constipation, Denies diarrhea and Denies loose stools Denies hematuria Musc Denies numbness and Denies tingling Skin/Breast Denies lesions Neuro Denies vertigo, Denies dizziness, Denies numbness and Denies tingling Psych Denies anxiety, Denies depression, Denies homicidal ideation, Denies suicidal ideation and Denies other (substance abuse) Aller/Immun Denies wheezing Physical exam (Primary Care) Vital Signs: Last Vital Signs Pulse 86 10/31/23 09:06 BP 118/80 10/31/23 09:06 Pulse Ox 98 10/31/23 09:06 Oxygen Delivery Method Room Air 10/31/23 09:06 BMI result Body Mass Index 28.3 Tobacco/Smoking Status: Tobacco use Status Tobacco use date assessed 10/31/23 10/31/23 09:11 Patient Tobacco Use Status Never used Tobacco 10/31/23 09:07 e-Cigarette/Vaping Use Never Used 10/31/23 09:07 PHQ-9: PHQ-9 Score PHQ-9: Total score 1 10/31/23 09:17 Depression Screening Interpretation: Negative Thrive Assessment: Date of Thrive Assessment Date Thrive assessed 10/31/23 10/31/23 09:13 Currently or been in a relationship where the following occur: no concerns reported Const General: cooperative Nutritional Appearance: well nourished Orientation/consciousness: patient oriented x3 HENMT Head: Yes normal to inspection, Yes normocephalic and Yes atraumatic Ears: TM's normal bilaterally Eyes General: appearance normal, both eyes and all related structures Alignment and Position: alignment normal and position normal Neck Neck: Yes normal visual inspection and Yes no lymphadenopathy Thyroid: Thyroid normal Resp Effort & Inspection: normal respiratory effort Auscultation: clear to auscultation bilaterally Cardio Rate: regular rate Rhythm: regular rhythm Heart sounds: S1 normal heart sound present, S2 normal heart sound present and no murmurs GI Palpation (GI): Soft to palpation and nontender Auscultation: normal bowel sounds General: Yes no CVA tenderness Back/Spine/Pelvis Back: no CVA tenderness Skin Rashes: no rashes Neuro General: patient oriented x3, moves all extremities, no focal motor deficits and deep tendon reflexes 2+ bilaterally Romberg Test: Negative Psych Appearance: grossly normal Mental Status: mental status grossly normal Speech and movement: Normal speech and movement present Affect: normal affect Attitude: cooperative Thought process: Normal thought process present Thought content: Normal thought content present Insight: Good insight present (Psych) Judgement: Good judgement present (Psych) Assessment and Plan Assessment & Plan (1) Microscopic hematuria: Code(s): R31.29 - Other microscopic hematuria Plan: Urine cytology and repeat UA ordered (2) Dyslipidemia: Code(s): E78.5 - Hyperlipidemia, unspecified Plan: Labs ordered (3) Encounter for physical examination: Code(s): Z00.00 - Encounter for general adult medical examination without abnormal findings Plan The patient agreed to the use of a medical billing manager for this encounter. Scribed for YOAV Reid by Marialuisa Santiago medical billing manager, on 10/31/2023 at 09:25 EST. Orders: Orders Urine Cytology Today R31.29 - Other microscopic hematuria Comprehensive [place]. Panel Fast Today E78.5 - Hyperlipidemia, unspecified Lipid Panel Today E78.5 - Hyperlipidemia, unspecified Complete Blood Count Auto Diff Today E78.5 - Hyperlipidemia, unspecified Coding Level of Care Code Est Pt Prev Care 18-39y(38867) Diagnoses Microscopic hematuria R31.29 Dyslipidemia E78.5 Encounter for physical examination Z00.00 Additional Codes NICOLASA-7 Assessment Billing - NICOLASA-7 Assessment Tool: NICOLASA-7 Assessment 44701 ([id number])
[2023-10-31 09:06] VITALS: BP 118/80; PULSE 86; O2SAT 98; BMI 28.3
== END 2023-10-31 09:54 | disposition home or self-care (01) ==
PROVIDERS: PCP Nurse Practitioner Family; Visit Provider Nurse Practitioner Family
DX: Z00.00 Encounter for general adult medical examination without abnormal findings (principal); R31.29 Other microscopic hematuria; E78.5 Hyperlipidemia, unspecified
CPT/HCPCS: 99395

== ENCOUNTER 2023-10-31 09:57 | Outpatient (REF) | payer BC, SELFPAY ==
[2023-10-31 13:26] LABS: Urine Cytology See Pathology rpt
== END 2023-10-31 09:58 | disposition home or self-care (01) ==
LOC: HO.HMGCLDS 09:57
PROVIDERS: PCP Nurse Practitioner Family; Visit Provider Nurse Practitioner Family
DX: R31.29 Other microscopic hematuria (principal)
CPT/HCPCS: 88112

== ENCOUNTER 2023-11-22 10:18 | Outpatient (AMB) | payer BC, SELFPAY ==
--- NOTE | 2023-11-22 10:22 | MHC.OFFVIS ---
Vital Signs 11/22/23 10:23 Height 5 ft 3 in Comment Pt request no VS today visit Intake Visit Reasons: 6 month follow up, breast exam Intake Note: Patient is seen in office for 6 month follow-up, breast examination. Patient c/o: reports no breast complaints at this time. mm:11/14/23 MRI:03/18/23 Lime Trimmer Required: No Accompanied by: Self / Same As Patient Allergies codeine Allergy (Unknown, Verified 11/22/23 10:27) vomiting Sulfa (Sulfonamide Antibiotics) Allergy (Unknown, Verified 11/22/23 10:27) vomitting, vomiting Medication List - Last Reconciled 11/22/23 by Mauricio Leyva MD desogestrel-ethinyl estradiol 0.15-0.03 mg 1 tab PO DAILY fexofenadine (Keiko Allergy) 180 mg PO DAILY fluticasone propionate 50 mcg/actuation (Allergy Relief (fluticasone)) 1 spray intranasal DAILY lorazepam 1 mg PO DAILY PRN multivitamin 1 tab PO DAILY HPI Comments Details: 33-year-old female, previous patient of Dr. Stevenson returning for a high risk breast evaluation.? Family history is significant for a paternal aunt with breast cancer diagnosed at the age of 45 and a 2nd paternal aunt with breast cancer identified at the age of 48, a paternal grandfather with colon cancer at the age of 75, her paternal grandmother with colon cancer at the age of 75 and a paternal great grandmother with breast cancer at the age of 50.? Her lifetime risk of breast cancer was determined to be 24.6% placing her at a high risk category.? She underwent bilateral breast MRIs on ?06/18/2020 which revealed a small area of non mass like enhancement in the retroareolar region of the left breast which is progressive in nature measuring 0.6 cm in size and is somewhat less prominent compared to the 05/01/2019 examination.? This was felt to be probably benign but a short term follow up MRI was recommended in 6-12 months.? Follow up MRI on 12/31/2020 revealed only benign findings bilaterally (BI-RADS 2 bilaterally).?MRI on 03/18/2023 revealed no MR specific evidence of malignancy in both breasts (BI-RADS 1 bilaterally). Patient previously underwent [facility] genetic testing on 11/30/2016 which revealed a heterozygous MUTYH mutation.? Repeat Genetic testing on 07/16/2020 revealed a breast cancer risk score of 24% and was positive for the heterozygous MUTYH mutation.? No other new mutations or VUS were identified. She is being followed by Dr. Tarango from Gastroenterology. Her most recent breast MRI of 03/18/2024 revealed no MR specific evidence of malignancy (BI-RADS 1). Mammogram performed by [facility] on 11/14/2023 also revealed no mammographic evidence of malignancy (BI-RADS 1). ? Patient is and is currently on control pills.? She has a history of a prior right breast needle core biopsy as a 14-year-old which was benign.? She denies any other breast problems or breast surgery.? She denies current nipple discharge.? She denies Ashkenazi Uats[place] heritage.?? [facility] Medical History Monoallelic mutation of MUTYH gene Polyposis associated with heterozygous mutation in MUTYH gene Eczema Surgical History S/P excision of lipoma (04/12/22) History of right breast biopsy Family History Father Asthma Allergic rhinitis Rheumatoid arthritis Colon polyps FH: testicular cancer, Onset Age: 16 Mother History of skin cancer Paternal Grandfather Colon cancer, Onset Age: 75 Paternal Aunt Breast cancer Sister No problems noted. Sister No problems noted. Paternal Grandmother Breast cancer Paternal Uncle Mouth cancer Maternal Aunt History of uterine cancer Paternal Aunt Breast cancer Paternal Aunt Breast cancer Family/Other Breast cancer Mental health disorder Substance use disorder Social History Housing: Apartment Alcohol intake: current Alcohol intake frequency: holidays/special occasions only Patient Tobacco Use Status: Never used Tobacco e-Cigarette/Vaping Use: Never Used Second Hand Smoke Exposure: No service: No Current occupational status: employed Current occupation: [employer] Current occupational exposures/hazards: Yes Cognitive needs: No Hearing needs: No Vision needs: No Review of Systems Const All systems reviewed & are unremarkable except as noted in HPI and below Physical Exam Const General: healthy appearing, no acute distress and well developed Chest Other: Left breast: No skin change, no nipple retraction, no nipple discharge, no palpable mass, no enlarged lymph nodes. Diffuse fibrocystic change. Right breast: No skin change, no nipple retraction, no nipple discharge, no palpable mass, no enlarged lymph nodes, fibrocystic changes throughout the breast. Resp Effort & Inspection: normal respiratory effort GI Inspection: Yes normal to inspection Skin General skin exam: dry skin, no ecchymosis and no erythema Extrem Other: Right forearm with a 1 cm round mobile soft tissue mass within the subcutaneous tissue as noted below, consistent with a lipoma. General: Yes no clubbing, cyanosis or edema Assessment & Plan Assessment & Plan (1) At high risk for breast cancer: Code(s): Z91.89 - Other specified personal risk factors, not elsewhere classified Category: Medical (2) Family history of breast cancer: Code(s): Z80.3 - Family history of malignant neoplasm of breast Category: Medical (3) Family history of colon cancer: Code(s): Z80.0 - Family history of malignant neoplasm of digestive organs Category: Medical Plan 33-year-old female patient returning for follow-up breast examination. Her genetic testing revealed a single MUTYH clinically significant mutation identified. Her breast cancer risk score for remaining lifetime risk is 24% placing her well above the 20% threshold for high risk. Examination today reveals no new suspicious findings in either breast. She does have bilateral dense breast tissue which is unchanged. Her most recent breast MRI performed on 03/18/2024 revealed no suspicious findings in either breast (BI-RADS 1). A screening mammogram performed on 11/14/2023 revealed no mammographic evidence of malignancy (BI-RADS 1). She will continue her annual mammogram and MRI alternating every 6 months and follow-up in 6 months for breast examination. She is welcome to call sooner for any new concerns. She will continue her GI follow-up with Dr. Tarango. Orders: Orders breast BI wo/w con 03/19/24 Z80.3 - Family history of malignant neoplasm of breast, Z91.89 - Other specified personal risk factors, not elsewhere classified Coding Level of Care Code Est Pt Level 3 (22764) Diagnoses At high risk for breast cancer Z91.89 Family history of breast cancer Z80.3 Family history of colon cancer Z80.0
== END 2023-11-22 10:51 | disposition home or self-care (01) ==
PROVIDERS: PCP Nurse Practitioner Family; Visit Provider Surgery
DX: Z80.3 Family history of malignant neoplasm of breast (principal); Z80.0 Family history of malignant neoplasm of digestive organs; Z91.89 Other specified personal risk factors, not elsewhere classified
CPT/HCPCS: 99213

== ENCOUNTER → 2023-11-22 10:18 | Outpatient (BNVA) | payer BC, SELFPAY | PROVIDERS: PCP Nurse Practitioner Family; Visit Provider Surgery ==

== ENCOUNTER → 2024-06-11 09:02 | Outpatient (BNV) | payer BC, SELFPAY | PROVIDERS: PCP Nurse Practitioner Family; Visit Provider Internal Medicine | DX: Z80.3 Family history of malignant neoplasm of breast (principal) | CPT/HCPCS: 77049 ==

== ENCOUNTER 2024-06-11 09:04 | Outpatient (REF) | payer BC, SELFPAY ==
--- NOTE | ~2024-06-11 | MR_ITS ---
EXAMINATION: MR BREAST WITHOUT AND WITH CONTRAST, BILATERAL CLINICAL INFORMATION: MRI screening surveillance. Strong family history of breast cancer including grandmother and 2 aunts. COMPARISON: Breast MRI March 18, 2023 February 02, 2022, December 31, 2020, June 18, 2020, May 01, 2019. TECHNIQUE: MR imaging of the breast was performed using T1, T2 and fat saturated techniques. Dynamic multiphase imaging was also performed after administration of intravenous gadolinium contrast agent. Computer generated 3-D reconstruction was performed. FINDINGS: There is heterogeneous fibroglandular breast tissue with marked background enhancement with bilateral symmetric scattered enhancing foci not significantly changed from prior MRIs. LEFT BREAST: No suspicious enhancing masses or areas of nonmass enhancement. No architectural distortion. No internal mammary or axillary adenopathy. RIGHT BREAST: Areas nonmass enhancement in the right upper central breast 7.6 cm behind the nipple series 1041 image 62/126 measuring approximately 17 x 3 mm. No other suspicious enhancing masses or areas of nonmass enhancement. No architectural distortion. No internal mammary or axillary adenopathy. Limited views of the chest and abdomen are unremarkable. MR/MR breast BI wo/w con IMPRESSION: Left: Negative. Right: Area of nonmass enhancement measuring up to 17 mm in the upper central right breast posterior depth. Recommend right breast ultrasound at this time. If no ultrasound correlate is seen then recommend 6 month follow-up MRI for further evaluation of stability. ASSESSMENT: LEFT BREAST: BI-RADS 1-Negative RIGHT BREAST: BI-RADS 3 probably benign. Recommend 6 month follow-up MRI for further evaluation of stability. RECOMMENDATIONS: Yearly screening mammography. Recommend 6 month follow-up breast MRI. Electronically signed by: Fiona Burrows DO 06/12/2024 04:28 PM EST
--- OUTSIDE RECORDS SUMMARY | 2024-06-11 09:32 | XMS_ITS | Continuity of Care Document ---
Author Organization [facility] Address [address] [address] Phone Care Team Providers Care Fur Finisher Name Role Phone Adrian READ, Aparna Unavailable [...] Mins - Telemedicine [facility], [address] [place] [address], [id number], tel:[phone] VR - [place] [facility] Venous insufficiency (chronic) (peripheral) 2 Adrian Braun. [address] [place] [address], [address], [place], [place], [id number] , [place]. tel:[phone] Referring Provider: Kboy Delgado, [address] [place] [address] [address], [place], [address]. tel:[phone] [facility] [address], [id number], [place] tel:[phone] VR - [place] - [place] No Information 2 Presley Whalen. [address] [place] [address], [address], [place], [address], [place]. tel:[phone] Referring Provider: Koby Delgado, [address] [place] [address] [address], [place], [address]. tel:[phone] Office/Outpt E&M Established 15 Mins [facility] [address], [id number], [place] tel:[phone] VR - [place] - [place] Body mass index (BMI) 26.0-26.9, adultLocalized edema 2 Presley Whalen. [address], [address], [place], [address], [place]. tel: [phone] Referring Provider: Koby Delgado, [address], [place], [address]. tel:[phone] [facility], [address] [facility], [place], [place], [id number], [place] tel:[phone] VR - [place] - [place] Chronic venous htn w oth comp of bilateral low extrm 2 Presley Whalen. [address], [address], [place], [address], [place]. tel: [phone] Referring Provider: Koby eDlgado, [address] [place] [address] [address], [place], [address]. tel:[phone] [facility], [address] [place], [place] [address]e [address], [place], [place], [id number], [place] tel:[phone] VR - [place] - [place] Spider Veins - (Telangiectasia ) 2 Presley Whalen. [address], [address], [place], [address], [place]. tel: [phone] Referring Provider: Koby Delgado, [address], [place], [address]. 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 [address] [place] [address], [address], [place], [address], [place]. tel: [phone] Referring Provider: Koby Delgado, [address], [place], [address]. tel:[phone] [facility], [address] [facility], [place], [place], [id number], [place] tel:[phone] VR - [place] - [place] Spider Veins - (Telangiectasia ) 2 Presley Whalen. [address], [address], [place], [address], [place]. tel: [phone] Referring Provider: Koby Delgado, [address], [place], [address]. tel:[phone] [facility], [address] [facility] [address], [place], [place], [id number], [place] tel:[phone] VR - [place] - [place] Encntr for f/u exam aft trtmt for cond oth than malig neoplmChronic venous hypertension w oth comp of l low extrem 2 Presley Whalen. [address] [place] [address], [address], [place], [address], [place]. tel: [phone] Referring Provider: Koby Delgado, [address] [place] [address] [address], [place], [address]. tel:[phone] [facility], [address] [facility], [place], [place], [id number], [place] tel:[phone] VR - [place] - [place] Encntr for f/u exam aft trtmt for cond oth than malig neoplmVaricose veins of right lower extremities with pain 2 Presley Whalen. [address], [address], [place], [address], [place]. tel: [phone] Referring Provider: Koby Delgado, [address], [place], [address]. 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 [address], [address], [place], [address], [place]. tel: [phone] Referring Provider: Koby Delgado, [address] [place] [address] [address], [place], [address]. tel:[phone] [facility], [address] [address], [place], [place], [id number], [place] tel:[phone] - [place] - [place] Varicose veins of right low extrm w oth complications 2 Presley Whalen. [address] [place] [address], [address], [place], [address], [place]. tel: [phone] Referring Provider: Koby Delgado, [address] [place] [address] [address], [place], [address]. tel:[phone] [facility], [address] [place] [address], [place], [place], [id number], [place] tel:[phone] VR - [place] - [place] No Information 2 Presley Whalen. [address] [place] [address], [address], [place], [address], [place]. tel: [phone] Referring Provider: Koby Delgado, [address] [place] [address] [address], [place], [address]. tel:[phone] Office/Outpt E&M Established 15 Mins [facility], [address] [place] [address], [place], [place], [id number], [place] [phone] VR - [place] - [place] Body mass index (BMI) 29.0-29.9, adultVenous insufficiency (chronic) (peripheral)Ny icose veins of bilateral lower extremities with pain Oct-2 1 Presley Whalen. [address], [address], [place], [address], [place]. tel: [phone] Referring Provider: Koby Delgado, [address], [place], [address]. tel:[phone] [facility], [address] [address], [place], [place], [id number], [place] tel:[phone] VR - [place] - [place] Chronic venous htn w oth comp of bilateral low extrm Oct-2 1 Presley Whalen. [address], [address], [place], [address], [place]. tel: [phone] Referring Provider: Koby Delgado, [address] [place] [address] [address], [place], [facility]. tel:[phone] [facility], [address] [place], [place] [address] [address] [place] [address], [id number], [place] tel:[phone] VR - [place] - [place] Encntr for f/u exam aft trtmt for cond oth than malig neoplmChronic venous hypertension w oth comp of l low extrem Sep-1 1 Presley Whalen. [address] [place] [address], [address], [place], [address], [place]. tel: [phone] Referring Provider: Koby Delgado, [address], [place], [address]. tel:[phone] [facility], [address], [id number], [place] tel:[phone] VR - [place] - [place] Encntr for f/u exam aft trtmt for cond oth than malig neoplmChronic venous hypertension w oth comp of r low extrem Sep-0 1 Presley Whalen. [address], [address], [place], [address], [place]. tel: [phone] Referring Provider: Koby Delgado, [address], [place], [address]. 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 [address], [address], [place], [address], [place]. tel: [phone] Referring Provider: Koby Delgado, [address] [place] [address] [address], [place], [address]. tel: [facility], [address] [facility] [address], [place], [place], [id number], [place] tel:[phone] VR - [place] - [place] Venous insufficiency (chronic) (peripheral) Sep-0 1 Presley Whalen. [address] [place] [address], [address], [place], [address], [place]. tel: [phone] Referring Provider: Koby Delgado, [address], [place], [address]. tel: [facility], [address] [facility] [address], [place], [place], [id number], [place] tel:[phone] VR - [place] - [place] Venous insufficiency (chronic) (peripheral) Sep-0 1 Presley Whalen. [address] [place] [address], [address], [place], [address], [place]. tel: [phone] Referring Provider: Koby Delgado, [address], [place], [address]. tel:[phone] [facility], [address], [id number], [place] tel:[phone] VR - [place] - [place] Venous insufficiency (chronic) (peripheral)Spi celio Veins - (Telangiectasia )Varicose veins of right low extrm w oth complications Sep-0 1 Presley Whalen. [address], [address], [place], [address], [place]. tel: [phone] Referring Provider: Koby Delgado, [address] [place] [address] [address], [place], [facility]. tel: Office/Outpt E&M Established 25 Mins [facility], [address] [place] [address], [id number], [place] tel:[phone] VR - [place] Asymptomatic varicose veins of bilateral lower extremitiesSpid er Veins - (Telangiectasia )Body mass index (BMI) 29.0-29.9, adult Mar- 1 Presley Whalen. [address] [place] [address], [address], [place], [address], [place]. tel: [phone] Referring Provider: Koby Delgado, [address] [place] [address] [address], [place], [facility]. tel: Office/Oupt E&M New Pt 45 Mins [facility], [address] [place] [address], [id number], [place] tel:[phone] VR - [place] Body mass index (BMI) 30.0-30.9, adultVenous insufficiency (chronic) (peripheral)Ny icose veins of bi low extrem w oth complications Jun- 1 Presley Whalen. [address] [place] [address], [address], [place], [address], [place]. tel: [phone] Referring Provider: Koby Delgado, [address] [place] [address] [address], [place], [facility]. tel: [facility], [address] [place] [address], [id number], tel:[phone] - [place] - [place] Chronic venous htn w oth comp of bilateral low extrm 1 Presley Whalen. [address], [address], [place], [address], [place]. tel:[phone] Referring Provider: Koby Delgado, [address], [place], [address]. tel:[phone] Family History Family Member Type Diagnosis Age At Onset Father Problem (finding) Obesity Mother Problem (finding) Obesity Father Problem (finding) Hypertension Mother Problem (finding) Varicose Veins Payers Payer name Insurance type Covered green party ID Authoriza tion(s) No Information Social [...]
[2024-06-11] MEDS: gadobutroL 7.5 ML VIAL IVPUSH (10:13)
== END 2024-06-11 09:05 | disposition home or self-care (01) ==
LOC: HO.MRI 09:04
PROVIDERS: PCP Nurse Practitioner Family; Visit Provider Surgery
DX: Z12.39 Encounter for other screening for malignant neoplasm of breast (principal); Z91.89 Other specified personal risk factors, not elsewhere classified; Z80.3 Family history of malignant neoplasm of breast
CPT/HCPCS: 77049; A9585

== ENCOUNTER 2024-07-05 15:17 | Outpatient (AMB) | payer BC, SELFPAY ==
--- OUTSIDE RECORDS SUMMARY | 2024-07-05 15:19 | XMS_ITS | Encounter Summary ---
Author Organization [facility] Address [address] [place] [address] Care Team Providers Care Disassembler Name Role Phone Unknown Primary Care Provider [phone] Encounter Details Date Type Department Care Team (Late st Contact Info) Description 07/03/2024 Orders Only [facility] [address] [place] [address] [address] Social History Tobacco Use Types Packs/Day Years Used Date Smoking Tobacco: Never Assessed Sex and Gender Information Value Date Recorded Sex Assigned at Female 06/29/2024 4:26 PM EST Gender Identity Female 06/29/2024 4:26 PM EST Sexual Orientation Not on file documented as of this encounter Plan of Treatment Not on file documented as of this encounter Procedures Procedure Name Priority Date/Time Associated Diagnosis Comments US GUIDED BREAST BIOPSY - RIGHT Routine 07/03/2024 10:55 AM EST documented in this encounter Results * US GUIDED BREAST BIOPSY - RIGHT (07/03/2024 10:55 AM EST) Anatomical Region Laterality Modality Other 07/03/2024 9:30 AM EST 07/03/2024 9:30 AM EST Narrative 07/03/2024 11:08 AM EST EXAMINATION: US GUIDANCE FOR CORE BIOPSY AND PERCUTANEOUS CLIP PLACEMENT, RIGHT BREAST CLINICAL INFORMATION: 1. Recent benign right breast MR biopsy at 12:00. 2. Solid 7 mm right breast mass at 10:00 7 cm from the nipple. COMPARISON: Pertinent imaging studies were reviewed. PROCEDURE: Following a discussion of the risks, benefits and alternatives to the procedure, written informed consent was obtained. A pre-procedure time-out was performed using 3 patient identifiers. The patient was placed LPO on the sonographic table and preliminary scanning redemonstrated oval solid 7 mm right breast mass at 10:00 7 cm from the nipple. The skin was prepped and draped in usual sterile fashion. 1% lidocaine was used for local anesthesia. Using continuous ultrasound guidance, a coaxial needle and subsequently a 14 spring-loaded device were placed at the level of lesion. Multiple cuts (4) core samples were then obtained. An MR-compatible ribbon marker was then deployed within the lesion under continuous ultrasound guidance. POST-PROCEDURE MAMMOGRAM: CC and ML views were obtained. The breasts are extremely dense, which lowers the sensitivity of mammography (ACR BI-RADS breast composition Category d). The ribbon clip is positioned at the area targeted for biopsy at 10 oclock. Resolving postbiopsy changes and bar clip at 12:00 following MR biopsy. The patient tolerated the procedure well and there were no immediate postprocedure complications. She was discharged in good condition with standard postprocedure instructions. IMPRESSION: Successful ultrasound-guided core biopsy of solid right breast mass 10:00. Specimens sent to pathology. Pathology is pending. Accurate ribbon clip deployment. Final recommendations will be made once pathology is obtained. Electronically signed by: ??Liliya Pan MD ??07/03/2024 11:08 AM [facility] Thank you for referring your patient to us, Liliya Pan MD [id number] (Electronically Signed - 07/03/2024 11:08) Copy: LILIYA SKY NP [facility] [address] [place] [address] PATIENT , ?? Procedure Note Liliya Pan MD - 07/03/2024 EXAMINATION: US GUIDANCE FOR CORE BIOPSY AND PERCUTANEOUS CLIP PLACEMENT, RIGHTBREAST CLINICAL INFORMATION: 1. Recent benign right breast MR biopsy at 12:00. 2. Solid 7 mm right breast mass at 10:00 7 cm from the nipple. COMPARISON: Pertinent imaging studies were reviewed. PROCEDURE: Following a discussion of the risks, benefits and alternatives to theprocedure, written informed consent was obtained. A pre-procedure time-outwas performed using 3 patient identifiers. The patient was placed LPO on the sonographic table and preliminaryscanning redemonstrated oval solid 7 mm right breast mass at 10:00 7 cmfrom the nipple. The skin was prepped and draped in usual sterile fashion. 1% lidocaine wasused for local anesthesia. Using continuous ultrasound guidance, a coaxialneedle and subsequently a 14 spring-loaded device were placed at the levelof lesion. Multiple cuts (4) core samples were then obtained. An MR-compatible ribbon marker was thendeployed within the lesion under continuous ultrasound guidance. POST-PROCEDURE MAMMOGRAM: CC and ML views were obtained. The breasts are extremely dense, whichlowers the sensitivity of mammography (ACR BI-RADS breast compositionCategory d). The ribbon clip is positioned at the area targeted for biopsyat 10 oclock. Resolving postbiopsy changes and bar clip at 12:00 following MR biopsy. The patient tolerated the procedure well and there were no immediatepostprocedure complications. She was discharged in good condition withstandard postprocedure instructions. IMPRESSION: Successful ultrasound-guided core biopsy of solid right breast mass 10:00.Specimens sent to pathology. Pathology is pending. Accurate ribbon clipdeployment. Final recommendations will be made once pathology isobtained. Electronically signed by: Liliya Pan MD 07/03/2024 11:08 AM EST RPWorkstation: [id number] Thank you for referring your patient to us, Liliya Pan MD [id number] (Electronically Signed - 07/03/2024 11:08) Copy: LILIYA SKY COMMERCIAL PHOTOGRAPHER [facility] [address] [place] [address] PATIENT , Liliya [facility] PROCEDURE S documented in this encounter Visit Diagnoses Not on filedocumented in this encounter Care Teams Disassembler Relationship Specialty Start Date End Date Unknown Unknow Provider Address PCP - General 05/21/20 documented as of this encounter
--- OUTSIDE RECORDS SUMMARY | 2024-07-05 15:19 | XMS_ITS | Encounter Summary ---
Author Organization [facility] Address [address] [place] [address] Care Team Providers Care Sales And Marketing Analyst Name Role Phone Unknown Primary Care Provider [phone] Encounter Details Date Type Department Care Team (Late st Contact Info) Description 06/28/2024 Orders Only [facility] [address] [place] [address] [address] Social History Tobacco Use Types [...] Procedure Name Priority Date/Time Associated Diagnosis Comments HX OUTSIDE ORDER Routine 06/28/2024 9:35 PM EST MR GUIDED BREAST BIOPSY- RIGHT Routine 06/28/2024 11:28 AM EST documented in this encounter Results * OUTSIDE ORDER (06/28/2024 9:35 PM EST) External Provider MD FLOOD AMB PROCEDURES * MR GUIDED BREAST BIOPSY- RIGHT (06/28/2024 11:28 AM EST) Anatomical Region Laterality Modality Other 06/28/2024 10:0 0 AM EST 06/28/2024 10:00 AM EST Narrative 06/28/2024 12:49 PM EST Addendum: ADDENDUM #1 The final pathology results for the MRI-guided biopsy performed by Dr. Pan on 06/28/2024 are: DIAGNOSIS: A. RIGHT BREAST, 12:00, BIOPSY: Fibrocystic changes and pseudoangiomatous stromal hyperplasia; negative for atypia or malignancy. These benign results are concordant with imaging. The bar clip correlates to the biopsy site. RECOMMENDATION: Right 6-month follow up MRI recommended. COMMUNICATION: The referring health care providers office was contacted and informed of the pathology results and recommendation. The [facility] Nurse Navigator will contact the patient to review the benign results and recommended follow up. Electronically signed by: ??Mark Cowan MD ??07/02/2024 12:39 PM EST RP Thank you for referring your patient to us, Mark Cowan MD [id number] (Electronically Signed - 07/02/2024 12:39) Original Report: EXAMINATION: MR GUIDED BREAST BIOPSY, RIGHT CLINICAL INFORMATION: A 15 mm linear ductal nonmass enhancement right breast 12 oclock. ?? COMPARISON: MRI 06/11/2024. ?? PROCEDURE/FINDINGS: After the details of the procedure, as well as the risks (including, but not limited to, bleeding, hematoma formation, infection and contrast reaction), benefits and alternatives (including doing nothing, short interval followup instead of biopsy and surgical biopsy) to the procedure were explained to the patient in detail, and all of her questions were answered, informed written consent was obtained. Utilizing a high-field scanner and a dedicated breast coil, precontrast and postcontrast imaging of the right breast was performed, with the breast in light compression. The patient received 7 mL of Gadavist for the exam intravenously without incident. Review of the images reveals persistent linear ductal nonmass enhancement measuring 15 mm on the right at 12 oclock posteriorly. The lesion intended for biopsy was then targeted and the skin of the right breast at that location cleansed with sterile solution. Using MRI guidance, aseptic technique and 1% lidocaine without and with epinephrine for local anesthesia, a total of 8 cores were obtained through the targeted area with a 9 gauge vacuum-assisted Suros core biopsy device from a lateral approach. At the completion of tissue sampling, a single bar-shaped metallic clip was deposited at the biopsy site. POST-PROCEDURE MAMMOGRAM: CC and LM views were obtained. The breast density is extremely dense fibroglandular parenchyma. The bar clip is positioned at the area targeted for biopsy at 12 oclock. No additional findings noted on the post procedure mammogram. The patient tolerated the procedure well and after assuring adequate hemostasis, she was discharged from the department of radiology in good condition after reviewing post biopsy care instructions. Final pathology results are pending. IMPRESSION: 1. Uncomplicated MRI-guided core biopsy of the right breast. 2. Final pathology results are pending. An addendum with final recommendations will be issued once these results are made available. Electronically signed by: ??Mauricio Pan MD ??06/28/2024 12:49 PM EST RP Thank you for referring your patient to us, Mauricio Pan MD [id number] (Electronically Signed - 06/28/2024 12:49) Procedure Note Mauricio Pan MD / Mark Cowan MD - 07/02/2024 Addendum: ADDENDUM #1 The final pathology results for the MRI-guided biopsy performed by on 06/28/2024 are: DIAGNOSIS: A. RIGHT BREAST, 12:00, BIOPSY: Fibrocystic changes and pseudoangiomatous stromal hyperplasia; negativefor atypia or malignancy. These benign results are concordant with imaging. The bar clip correlates to the biopsy site. RECOMMENDATION: Right 6-month follow up MRI recommended. COMMUNICATION: The referring health care providers office was contacted and informed ofthe pathology results and recommendation. The [facility] Nurse Navigator will contact thepatient to review the benign results and recommended follow up. Electronically signed by: Mark Cowan MD 07/02/2024 12:39 PM EST RPWorkstation: [id number] Thank you for referring your patient to us, Mark Cowan MD [phone] (Electronically Signed - 07/02/2024 12:39) Original Report: EXAMINATION: MR GUIDED BREAST BIOPSY, RIGHT CLINICAL INFORMATION: A 15 mm linear ductal nonmass enhancement right breast 12 oclock. COMPARISON: MRI 06/11/2024. PROCEDURE/FINDINGS: After the details of the procedure, as well as the risks (including, butnot limited to, bleeding, hematoma formation, infection and contrastreaction), benefits and alternatives (including doing nothing, shortinterval followup instead of biopsy and surgical biopsy) to the procedure were explained to the patient in detail,and all of her questions were answered, informed written consent wasobtained. Utilizing a high-field scanner and a dedicated breast coil,precontrast and postcontrast imaging of the right breast was performed, with the breast in light compression. Thepatient received 7 mL of Gadavist for the exam intravenously withoutincident. Review of the images reveals persistent linear ductal nonmass enhancementmeasuring 15 mm on the right at 12 oclock posteriorly. The lesion intended for biopsy was then targeted and the skin of the rightbreast at that location cleansed with sterile solution. Using MRI guidance, aseptic technique and 1% lidocaine without and withepinephrine for local anesthesia, a total of 8 cores were obtained throughthe targeted area with a 9 gauge vacuum-assisted Suros core biopsy devicefrom a lateral approach. At the completion of tissue sampling, a single bar-shaped metallic clip wasdeposited at the biopsy site. POST-PROCEDURE MAMMOGRAM: CC and LM views were obtained. The breast density is extremely densefibroglandular parenchyma. The bar clip is positioned at the area targetedfor biopsy at 12 oclock. No additional findings noted on the postprocedure mammogram. The patient tolerated the procedure well and after assuring adequatehemostasis, she was discharged from the department of radiology in goodcondition after reviewing post biopsy care instructions. Final pathologyresults are pending. IMPRESSION: 1. Uncomplicated MRI-guided core biopsy of the right breast. 2. Final pathology results are pending. An addendum with finalrecommendations will be issued once these results are made available. Electronically signed by: Mauricio Pan MD 06/28/2024 12:49 PM EST RPWorkstation: [id number] Thank you for referring your patient to us, Mauricio Pan MD [phone] (Electronically Signed - 06/28/2024 12:49) Mauricio [facility] PROCEDURE S documented in this encounter Visit Diagnoses Not on filedocumented in this encounter Care Teams Sales And Marketing Analyst Relationship Specialty Start Date End Date Unknown Unknow Provider Address PCP - General 05/21/20 documented as of this encounter
--- OUTSIDE RECORDS SUMMARY | 2024-07-05 15:19 | XMS_ITS | Encounter Summary ---
Author Organization [facility] Address [address] [place] [address] Care Team Providers Care Diet Supervisor Name Role Phone Unknown Primary Care Provider [phone] Encounter Details Date Type Department Care Team (Late st Contact Info) Description 07/03/2024 Orders Only [facility] [address] [place] [address] [address] Social History Tobacco Use Types [...] Associated Diagnosis Comments HX OUTSIDE ORDER Routine 07/03/2024 11:0 4 PM EST MG POST BIOPSY MAMMOGRAM- RIGHT Routine 07/03/2024 11:45 AM EST documented in this encounter Results * OUTSIDE ORDER (07/03/2024 11:04 PM EST) External Provider MD FLOOD AMB PROCEDURES * MG POST BIOPSY MAMMOGRAM- RIGHT (07/03/2024 11:45 AM EST) Anatomical Region Laterality Modality Other 07/03/2024 11:4 5 AM EST 07/03/2024 11:45 AM EST Narrative 07/03/2024 11:08 AM EST [...] once pathology is obtained. Electronically signed by: ??Mauricio Pan MD ??07/03/2024 11:08 AM EST Thank you for referring your patient to us, Mauricio Pan MD [phone] (Electronically Signed - 07/03/2024 11:08) Procedure Note Mauricio Pan MD - 07/03/2024 EXAMINATION: US GUIDANCE [...] made once pathology isobtained. Electronically signed by: Mauricio Pan MD 07/03/2024 11:08 AM EST RPWorkstation: [id number] Thank you for referring your patient to us, Mauricio Pan MD [id number] (Electronically Signed - 07/03/2024 11:08) Mauricio [facility] PROCEDURE S documented in this encounter Visit Diagnoses Not on filedocumented in this encounter Care Teams Diet Supervisor Relationship Specialty Start Date End Date Unknown Unknow Provider Address PCP - General 05/21/20 documented as of this encounter
--- OUTSIDE RECORDS SUMMARY | 2024-07-05 15:19 | XMS_ITS | Continuity of Care Document ---
Author Organization [facility] Address [address] [address] Phone Care Team Providers Care Dietitian Consultant Name Role Phone Adrian READ, Aparna Unavailable [...] Mins - Telemedicine [facility], [address] [place] [address], [id number], tel:[phone] VR - [place] [facility] Venous insufficiency (chronic) (peripheral) 2 Adrian Braun. [address] [place] [address], [address], [place], [place], [id number] , [place]. tel:[phone] Referring Provider: Koby Delgado, [address] [place] [address] [address], [place], [address]. tel:[phone] [facility] [address], [id number], [place] tel:[phone] VR - [place] No Information 2 Presley Whalen. [address] [place] [address], [address], [place], [address], [place]. tel:[phone] Referring Provider: Koby Delgado, [address] [place] [address] [address], [place], [address]. tel:[phone] Office/Outpt E&M Established 15 Mins [facility] [address], [id number], [place] tel:[phone] VR - [place] Body mass index (BMI) 26.0-26.9, adultLocalized edema 2 Presley Whalen. [address], [address], [facility], [address], [place]. tel: [phone] Referring Provider: Koby Delgado, [address], [place], [address]. tel:[phone] [facility], [address] [facility], [place], [place], [id number], [place] tel:[phone] VR - [place] Chronic venous htn w oth comp of bilateral low extrm 2 Presley Whalen. [address], [address], [facility], [address], [place]. tel: [phone] Referring Provider: Koby Delgado, [address] [place] [address] [address], [place], [address]. tel:[phone] [facility], [address] [place], [place] [address] [address], [place], [place], [id number], [place] tel:[phone] VR - [place] Spider Veins - (Telangiectasia ) 2 Presley Whalen. [address], [address], [facility], [address], [place]. tel: [phone] Referring Provider: Koby Delgado, [address], [place], [address]. 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 [address] [place] [address], [address], [facility] [place], [address], [place]. tel: [phone] Referring Provider: Koby Delgado, [address], [place], [address]. tel:[phone] [facility], [address] [facility], [place], [place], [id number], [place] tel:[phone] VR - [place] - [place] Spider Veins - (Telangiectasia ) 2 Presley Whalen. [address], [address], [place], [address], [place]. tel: [phone] Referring Provider: Koby Delgado, [address], [place], [address]. tel:[phone] [facility], [address] [facility] [address], [place], [place], [id number], [place] tel:[phone] VR - [place] Encntr for f/u exam aft trtmt for cond oth than malig neoplmChronic venous hypertension w oth comp of l low extrem 2 Presley Whalen. [address] [place] [address], [address], [place], [address], [place]. tel: [phone] Referring Provider: Koby Delgado, [address] [place] [address] [address], [place], [address]. tel:[phone] [facility], [address] [facility], [place], [place], [id number], [place] tel:[phone] VR - [place] Encntr for f/u exam aft trtmt for cond oth than malig neoplmVaricose veins of right lower extremities with pain 2 Presley Whalen. [address], [address], [facility], [address], [place]. tel: [phone] Referring Provider: Koby Delgado, [address], [place], [address]. 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 [address], [address], [place], [address], [place]. tel: [phone] Referring Provider: Koby Delgado, [address] [place] [address] [address], [place], [address]. tel:[phone] [facility], [address] [address], [place], [place], [id number], [place] tel:[phone] - [place] - [place] Varicose veins of right low extrm w oth complications 2 Presley Whalen. [address] [place] [address], [address], [place], [address], [place]. tel: [phone] Referring Provider: Koby Delgado, [address] [place] [address] [address], [place], [address]. tel:[phone] [facility], [address] [place] [address], [place], [place], [id number], [place] tel:[phone] VR - [place] No Information 2 Presley Whalen. [address] [place] [address], [address], [place], [address], [place]. tel: [phone] Referring Provider: Koby Delgado, [address] [place] [address] [address], [place], [address]. tel:[phone] Office/Outpt E&M Established 15 Mins [facility], [address] [place] [address], [place], [place], [id number], [place] [phone] VR - [place] Body mass index (BMI) 29.0-29.9, adultVenous insufficiency (chronic) (peripheral)Ny icose veins of bilateral lower extremities with pain Oct-2 1 Presley Whalen. [address], [address], [place], [address], [place]. tel: [phone] Referring Provider: Koby Delgado, [address], [place], [address]. tel:[phone] [facility], [address] [address], [place], [place], [id number], [place] tel:[phone] VR - [place] - [place] Chronic venous htn w oth comp of bilateral low extrm Oct-2 1 Presley Whalen. [address], [address], [place], [address], [place]. tel: [phone] Referring Provider: Koby Delgado, [address] [place] [address] [address], [place], [place], [facility]. tel:[phone] [facility], [address] [place], [place] [address]e [address] [place] [address], [id number], [place] tel:[phone] VR - [place] - [place] Encntr for f/u exam aft trtmt for cond oth than malig neoplmChronic venous hypertension w oth comp of l low extrem Sep-1 1 Presley Whalen. [address] [place] [address], [address], [place], [address], [place]. tel: [phone] Referring Provider: Koby Delgado, [address], [place], [address]. tel:[phone] [facility], [address], [id number], [place] tel:[phone] VR - [place] Encntr for f/u exam aft trtmt for cond oth than malig neoplmChronic venous hypertension w oth comp of r low extrem Sep-0 1 Presley Whalen. [address], [address], [place], [address], [place]. tel: [phone] Referring Provider: Koby Delgado, [address], [place], [address]. 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 [address], [address], [facility], [address], [place]. tel: [phone] Referring Provider: Koby Delgado, [address] [place] [address] [address], [place], [address]. tel: [facility], [address] [facility] [address], [place], [place], [id number], [place] tel:[phone] VR - [place] Venous insufficiency (chronic) (peripheral) Sep-0 1 Presley Whalen. [address] [place] [address], [address], [place], [address], [place]. tel: [phone] Referring Provider: Koby Delgado, [address], [place], [address]. tel: [facility], [address] [facility] [address], [place], [place], [id number], [place] tel:[phone] VR - [place] - [place] Venous insufficiency (chronic) (peripheral) Sep-0 1 Presley Whalen. [address] [place] [address], [address], [place], [address], [place]. tel: [phone] Referring Provider: Koby Delgado, [address], [place], [address]. tel:[phone] [facility], [address], [id number], [place] tel:[phone] VR - [place] Venous insufficiency (chronic) (peripheral)Spi celio Veins - (Telangiectasia )Varicose veins of right low extrm w oth complications Sep-0 1 Presley Whalen. [address], [address], [place], [address], [place]. tel: [phone] Referring Provider: Koby Delgado, [address] [place] [address] [address], [place], [place], [facility]. tel: Office/Outpt E&M Established 25 Mins [facility], [address] [place] [address], [id number], [place] tel:[phone] VR - [place] - [place] Asymptomatic varicose veins of bilateral lower extremitiesSpid er Veins - (Telangiectasia )Body mass index (BMI) 29.0-29.9, adult Mar- 1 Presley Whalen. [address] [place] [address], [address], [place], [address], [place]. tel: [phone] Referring Provider: Koby Delgado, [address] [place] [address] [address], [place], [place], [facility]. tel: Office/Oupt E&M New Pt 45 Mins [facility], [address] [place] [address], [id number], [place] tel:[phone] VR - [place] - [place] Body mass index (BMI) 30.0-30.9, adultVenous insufficiency (chronic) (peripheral)Ny icose veins of bi low extrem w oth complications Jun- 1 Presley Whalen. [address] [place] [address], [address], [place], [address], [place]. tel: [phone] Referring Provider: Koby Delgado, [address] [place] [address] [address], [place], [place], [facility]. tel: [facility], [address] [place] [address], [id number], tel:[phone] - [place] - [place] Chronic venous htn w oth comp of bilateral low extrm 1 Presley Whalen. [address], [address], [place], [address], [place]. tel:[phone] Referring Provider: Koby Delgado, [address], [place], [address]. tel:[phone] Family History Family Member Type Diagnosis Age At Onset Father Problem (finding) Obesity Mother Problem (finding) Obesity Father Problem (finding) Hypertension Mother Problem (finding) Varicose Veins Payers Payer name Insurance type Covered libertarian ID Authoriza tion(s) No Information Social History [...]
--- OUTSIDE RECORDS SUMMARY | 2024-07-05 15:19 | XMS_ITS | Clinical Summary ---
Author Organization [facility] Address [address] [place] [address] Care Team Providers Care Flavorer Name Role Phone Unknown Primary Care Provider [phone] Encounters Date Type Department Care Team Description 07/03/2024 10:30 AM EST - 07/03/2024 11:59 PM EST Hospital Encounter OP SPECIMEN LAB [address] [place] [address] Liliya Pan MD Discharge Disposition: Home or Self Care 07/03/2024 Orders Only [facility] [address] [place] [address] Liliya Leyva 07/03/2024 Orders Only [facility] [address] [place] [address] Liliya Leyva 06/28/2024 11:00 AM EST - 06/28/2024 11:59 PM EST Hospital Encounter OP SPECIMEN LAB [address] [place] [address] Liliya Pan MD Discharge Disposition: Home or Self Care 06/28/2024 Orders Only [facility] [address] [place] [address] Liliya Leyva 06/28/2024 Orders Only [facility] [address] [place] [address] Liliya Leyva 06/13/2024 Orders Only [facility]UAL [facility] [place] [address] Liliya Leyva from Last 3 Months Immunizations Name Administration Dates Next Due Covid-19 mRNA Primary Series Vaccine - Moderna 0.5 mL Full Dose 06/19/2020,05/22/2020 Social History Tobacco Use Types Packs/Day Years Used Date Smoking Tobacco: Never Assessed Sex and Gender Information Value Date Recorded Sex Assigned at Female 06/29/2024 4:26 PM EST Gender Identity Female 06/29/2024 4:26 PM EST Sexual Orientation Not on file Plan of Treatment Health Maintenance Due Date Last Done Comments Hepatitis C Virus Screening 1988 HIV Screening 2001 DTaP/Tdap/Td Vaccines (1 - Tdap) 11/07/2007 Hepatitis B Vaccines (1 of 3 - 19+ 3-dose series) 11/07/2007 Pap Smear (Ages 21-65) 2009 COVID-19 Vaccine (2023-2 5 season) 2024 06/19/2020, 05/22/2020 Influenza Vaccine Completed 02/21/2024, 03/04/2020 HPV Vaccines Aged Out No longer eligi ble based on patient's age to complete this topic Pneumococcal Vaccine: Pediatric (0-5 Years) and At-Risk Patients (6 to 49 Years) Aged Out No longer eligible b ased on patient's age to complete this topic Procedures Procedure Name Priority Date/Time Associated Diagnosis Comments HX OUTSIDE ORDER Routine 07/03/2024 11:0 4 PM EST MG POST BIOPSY MAMMOGRAM- RIGHT Routine 07/03/2024 11:45 AM EST US GUIDED BREAST BIOPSY - RIGHT Routine 07/03/2024 10:55 AM EST PATHOLOGY REPORT Routine 07/03/2024 12:0 0 AM EST HX OUTSIDE ORDER Routine 06/28/2024 9:35 PM EST MG POST BIOPSY MAMMOGRAM- RIGHT Routine 06/28/2024 12:11 PM EST MR GUIDED BREAST BIOPSY- RIGHT Routine 06/28/2024 11:28 AM EST PATHOLOGY REPORT Routine 06/28/2024 12:0 0 AM EST US BREAST DIAGNOSTIC RIGHT Routine 06/13/2024 5:34 PM EST from Last 3 Months Results * OUTSIDE ORDER (07/03/2024 11:04 PM EST) Only the most recent of2 resultswithin the time period is included. External Provider MD FLOOD AMB PROCEDURES * MG POST BIOPSY MAMMOGRAM- RIGHT (07/03/2024 11:45 AM EST) Only the most recent of2 resultswithin the time period is included. Anatomical Region Laterality Modality Other 07/03/2024 11:4 [...] by: ??Liliya Pan MD ??07/03/2024 11:08 AM EST RP Thank you for referring your patient to us, Liliya Pan MD [id number] (Electronically Signed - 07/03/2024 11:08) Procedure Note Liliya Pan MD - 07/03/2024 [...] Pan MD 07/03/2024 11:08 AM EST RPWorkstation: [id number] Thank you for referring your patient to us, Liliya Pan MD [id number] (Electronically Signed - 07/03/2024 11:08) Liliya Danielbere [facility] PROCEDURE S * US GUIDED BREAST BIOPSY - RIGHT [...] by: ??Liliya Pan MD ??07/03/2024 11:08 AM EST Thank you for referring your patient to us, Liliya Pan MD [id number] (Electronically Signed - 07/03/2024 11:08) Copy: LILIYA SKY ASSIGNMENT MANAGER [facility] [address] [place] [address] PATIENT , ?? Procedure Note Liliya Pan [...] Pan MD 07/03/2024 11:08 AM EST RPWorkstation: [id number] Thank you for referring your patient to us, Liliya Pan MD [id number] (Electronically Signed - 07/03/2024 11:08) Copy: LILIYA SKY ASSIGNMENT MANAGER [facility] [address] [place] [address] PATIENT , Liliya Leyva IMG LEGACY PROCEDURE S * Pathology (07/03/2024 12:00 AM EST) Only the most recent of2 resultswithin the time period is included. Report [facility] [place] HP-0254 ?? 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 ?? sc/07/05/2024 Electronically Signed Out ? PACHECO RIVERS MD COMMENT [id number] Clinical Information and History: An oval 7mm right breast mass 1000 (R92.8) TIF 10:35AM Tissue(s) Submitted: A: R 1000 4 X 14G TRT 1030 TIF 1035 Gross Description: The specimen is received in formalin labeled per the requisition as R 10 o'clock 4 x 14G TRT 1030 TIF 1035 and consists of four corral-white to corral-pink cores of fibroadipose tissue which range in size from 0.9 x 0.1 cm up to 1.9 x 0.1 cm. The cores are submitted in toto in cassette A1. ?? Please note, one end of each core is inked black for patient identification purposes. ??The tissue removal time is 10:30 AM on 07/03/24 and the time in formalin is 10:35 AM that same day. ??The total fixation time is between 6-72 hours. ??The cold ischemic time is within the given parameters. HOSPITAL LAB 07/03/2024 07/03/2024 1:3 0 PM EST Comment:R 1000 4 X 14G TRT 1 030 TIF 1035 Liliya Pan MD [facility] See Below * MR GUIDED BREAST BIOPSY- RIGHT (06/28/2024 [...] of the pathology results and recommendation. The [facility] Nurse Navigator will contact the patient to review the benign results and recommended follow up. Electronically signed by: ??Mark Cowan MD ??07/02/2024 12:39 PM EST Thank you for referring your patient to us, Mark Cowan MD [id number] (Electronically Signed - 07/02/2024 12:39) Original Report: [...] results are made available. Electronically signed by: ??Liliya Pan MD ??06/28/2024 12:49 PM [facility] Thank you for referring your patient to us, Liliya Pan MD [id number] (Electronically Signed - 06/28/2024 12:49) Procedure Note Liliya Pan MD / Mark Cowan MD - [...] informed ofthe pathology results and recommendation. The [facility] Nurse Navigator will contact thepatient to review the benign results and recommended follow up. Electronically signed by: Mark Cowan MD 07/02/2024 12:39 PM EST RPWorkstation: [id number] Thank you for referring your patient to us, Mark Cowan MD [phone] (Electronically Signed - 07/02/2024 12:39) Original Report: [...] results are made available. Electronically signed by: Liliya Pan MD 06/28/2024 12:49 PM EST RPWorkstation: [id number] Thank you for referring your patient to us, Liliya Pan MD [phone] (Electronically Signed - 06/28/2024 12:49) Liliya Leyva IMG LEGACY PROCEDURE S * US BREAST DIAGNOSTIC RIGHT (06/13/2024 5:34 PM EST) Anatomical Region Laterality Modality Other 06/13/2024 4:45 PM EST 06/13/2024 4:45 PM EST Narrative 06/14/2024 3:10 PM EST HISTORY: Patient is 33 years old and is seen for diagnostic evaluation of abnormality seen with other other imaging modality in the central region of the right breast. The patient has the following family history of breast cancer: ??2 paternal aunts, breast cancer. FILMS COMPARED: The present examination has been compared to prior imaging studies dated 11/14/2023 and 06/12/2024. ULTRASOUND FINDINGS: Targeted high resolution grayscale sonography was performed of the area of concern. Finding 1: ??The finding in question is not seen on ultrasound. ??No US correlate for linear/ductal non mass enhancement 12:00. Needs MRI biopsy. Finding 2: ??There is an oval avascular solid mass with circumscribed margins measuring 7 millimeters seen in the right breast at 10 oclock, upper outer quadrant located 7 centimeters from the nipple, with long axis parallel to the chest wall. Internal echogenicity is hypoechoic. There is no effect on posterior tissue. Finding correlates to the area of area of pain in the upper outer quadrant of the right breast. IMPRESSION: Finding 1: ??Area in the right breast at 12 oclock is suspicious. An MR guided core breast biopsy is recommended. Finding 2: ??Solid mass in the right breast at 10 oclock, upper outer quadrant is suspicious. An ultrasound core guided biopsy is recommended. Schedule for separate visit. Recommendation given to Dougie AHMADI on 06/14/24 @ 9:26am. Duc Zamora The patient was informed of these findings at the time of the exam. The patient will receive a lay summary of the results of this breast imaging exam. BIRADS Category 4A: Suspicious Thank you for referring your patient to us, Liliya Pan MD [phone] (Electronically Signed - 06/14/2024 15:10) Copy: LILIYA SKY ASSIGNMENT MANAGER [facility] [address] [place] [address] Procedure Note Liliya Pan MD - 06/14/2024 HISTORY: Patient is 33 years old and is seen for diagnostic evaluation of abnormality seen with other other imaging modality in the central regionof the right breast. The patient has the following family history of breast cancer: 2 paternalaunts, breast cancer. FILMS COMPARED: The present examination has been compared to prior imaging studies dated11/14/2023 and 06/12/2024. ULTRASOUND FINDINGS: Targeted high resolution grayscale sonography was performed of the area ofconcern. Finding 1: The finding in question is not seen on ultrasound. No UScorrelate for linear/ductal non mass enhancement 12:00. Needs MRI biopsy. Finding 2: There is an oval avascular solid mass with circumscribed margins measuring 7 millimeters seen in the right breast at 10 oclock, upper outer quadrant located 7 centimeters from the nipple, with long axisparallel to the chest wall. Internal echogenicity is hypoechoic. Thereis no effect on posterior tissue. Finding correlates to the area of area of pain in the upper outer quadrant of the right breast. IMPRESSION: Finding 1: Area in the right breast at 12 oclock is suspicious. An MR guided core breast biopsy is recommended. Finding 2: Solid mass in the right breast at 10 oclock, upper outer quadrant is suspicious. An ultrasound core guided biopsy is recommended.Schedule for separate visit. Recommendation given to Dougie AHMADI on 06/14/24 @ 9:26am. Duc Zamora The patient was informed of these findings at the time of the exam. The patient will receive a lay summary of the results of this breast imaging exam. BIRADS Category 4A: Suspicious Thank you for referring your patient to us, Liliya Pan MD [phone] (Electronically Signed - 06/14/2024 15:10) Copy: LILIYA SKY ASSIGNMENT MANAGER [facility] [address] [place] [address] Liliya Leyva IMNydia LEGACY PROCEDURE S from Last 3 Months Care Teams Flavorer Relationship Specialty Start Date End Date Unknown Unknow Provider Address PCP - General 05/21/20
--- OUTSIDE RECORDS SUMMARY | 2024-07-05 15:19 | XMS_ITS | Encounter Summary ---
Author Organization [facility] Address [address] [place] [address] Care Team Providers Care Deputy Building Guard Name Role Phone Unknown Primary Care Provider [phone] Encounter Details Date Type Department Care Team (Latest Contact Info) Description 07/03/2024 10:30 AM EST - 07/03/2024 11:59 PM EST Hospital Encounter OP SPECIMEN LAB [address] [place] [address] Mauricio Pan MD [address] [place] [address] Discharge Disposition: Home or Self Care Social History Tobacco Use Types Packs/Day Years [...] Procedure Name Priority Date/Time Associated Diagnosis Comments PATHOLOGY REPORT Routine 07/03/2024 12:0 0 AM EST documented in this encounter Results * Pathology (07/03/2024 12:00 AM EST) Report [facility] [id number] ?? CLIA ID [id number] [address] [place], [place] ??[address] [phone] Surgical Pathology Report PATIENT NAME: NATHANIEL DUC L. 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 ?? ny/07/05/2024 Electronically Signed Out ? PACHECO RIVERS MD COMMENT [id number] Clinical Information and History: An oval 7mm [...] X 14G TRT 1 030 TIF 1035 Mauricio Pan MD [facility] See Below documented in this encounter Visit Diagnoses Not on filedocumented in this encounter Care Teams Deputy Building Guard Relationship Specialty Start Date End Date Unknown Unknow Provider Address PCP - General 05/21/20 documented as of this encounter
--- OUTSIDE RECORDS SUMMARY | 2024-07-05 15:19 | XMS_ITS | Encounter Summary ---
Author Organization [facility] Address [address] [place] [address] Care Team Providers Care Roll Tube Setter Name Role Phone Unknown Primary Care Provider [phone] Encounter Details Date Type Department Care Team (Latest Contact Info) Description 06/28/2024 11:00 AM EST - 06/28/2024 11:59 PM EST Hospital Encounter OP SPECIMEN LAB [address] [place] [address] Mauricio Pan MD [address] [place] [address] Discharge Disposition: Home or Self Care Social [...] Date/Time Associated Diagnosis Comments PATHOLOGY REPORT Routine 06/28/2024 12:0 0 AM EST documented in this encounter Results * Pathology (06/28/2024 12:00 AM EST) Report [facility] [id number] ?? CLIA ID [id number] [address] [place], [place] ??[address] / [phone] Surgical Pathology Report PATIENT NAME: DUC GONZALEZ MED REC NUMBER: [id number] (AGE): 1990 (Age: 33) SPECIMEN NUMBER: [id number] DATE OBTAINED: 06/28/2024 DIAGNOSIS A. 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 /06/29/2024 Electronically Signed Out ? PATSY WEIR III, MD COMMENT [id number] Clinical Information and History: A 15mm linear ductal non mass enhancement right breast 1200 (R92.8) TIF 11:10AM Tissue(s) Submitted: A: R 1200 8 X 9G TRT 1100 TIF 1110 Gross Description: The specimen is received in formalin labeled per the requisition as R 12 o'clock 8 x 9G TRT 1100 TIF 1110 and consists of eight corral-yellow to corral-white cores of fibroadipose tissue which range in size from 1.3 x 0.5 cm up to 3.6 x 0.4 cm. Additionally received free-floating in the specimen container are corral-yellow to corral-white core fragments which are filtered and measure 1.0 x 0.4 x 0.2 cm. ??The specimen is submitted as follows: ?? A1-A4: ? Two free-floating cores per cassette A5: ? Filtered core fragments Please note, one end of each core is inked yellow for patient identification purposes. ??The tissue removal time is 11:00 AM on 06/28/24 and the time in formalin is 11:10 AM that same day. ??The total fixation time is between 6-72 hours. ??The cold ischemic time is within the given parameters. HOSPITAL LAB 06/28/2024 06/28/2024 1:5 5 PM EST Comment:R 1200 8 X 9G TRT 11 00 TIF 1110 Mauricio Pan MD [facility]OLOGY[facility]Y [facility] See Below documented in this encounter Visit Diagnoses Not on filedocumented in this encounter Care Teams Roll Tube Setter Relationship Specialty Start Date End Date Unknown Unknow Provider Address PCP - General 05/21/20 documented as of this encounter
--- NOTE | 2024-07-05 15:20 | A.OFFVIS_ITS ---
Vital Signs 07/05/24 15:24 Height 5 ft 3 in Weight 158 lb 11.725 oz BMI 28.1 Intake Visit Reasons: MR Guided Bx RESULTS, right breast Intake Note: Patient is seen in office for MR guided bx results for the right breast. Pt c/o: here for results, no concerns regarding the breast Biomedical Equipment Specialist Required: No Accompanied by: Self / Same As Patient Allergies codeine Allergy (Unknown, Verified 07/05/24 15:24) vomiting Sulfa (Sulfonamide Antibiotics) Allergy (Unknown, Verified 07/05/24 15:24) vomitting, vomiting Medication List - Last Reconciled 07/06/24 by Mauricio Leyva MD desogestrel-ethinyl estradiol 0.15-0.03 mg 1 tab PO DAILY fexofenadine (Keiko Allergy) 180 mg PO DAILY fluticasone propionate 50 mcg/actuation (Allergy Relief (fluticasone)) 1 spray intranasal DAILY lorazepam 1 mg PO DAILY PRN multivitamin 1 tab PO DAILY HPI Comments Details: 33-year-old female, previous patient of Dr. Stevenson returning for a high risk breast evaluation.? Family history is significant for a paternal aunt with breast cancer diagnosed at the age of 45 and a 2nd paternal aunt with breast cancer identified at the age of 48, a paternal grandfather with colon cancer at the age of 75, her paternal grandmother with colon cancer at the age of 75 and a paternal great grandmother with breast cancer at the age of 50.?Patient is and is currently on control pills.? She has a history of a prior right breast needle core biopsy as a 14-year-old which was benign.? She denies any other breast problems or breast surgery.? She denies current nipple discharge.? She denies Ashkenazi Zoroastrianism heritage.?? Her lifetime risk of breast cancer was determined to be 24.6% placing her at a high risk category.? She has been on a high risk protocol including yearly mammogram and breast MRIs. Patient previously underwent [facility] genetic testing on 11/30/2016 which revealed a heterozygous MUTYH mutation.? Repeat Genetic testing on 07/16/2020 revealed a breast cancer risk score of 24% and was positive for the heterozygous MUTYH mutation.? No other new mutations or VUS were identified. She is being followed by Dr. Tarango from Gastroenterology. Mammogram performed by [facility] on 11/14/2023 also revealed no mammographic evidence of malignancy (BI-RADS 1). ?Breast MRI performed [place] [facility] [place]11/2024 revealed a normal left breast but on the right side and area of non-mass enhancement measuring up to 17 mm in the upper central right breast posterior depth was identified. Right breast ultrasound was recommended and if no correlate seen an MR guided core biopsy was recommended (BI-RADS 1 left breast, BI-RADS 4 right breast). An ultrasound of the right breast was performed at [facility] on 06/13/2024. The finding in question could not be identified however a oval avascular solid mass with circumscribed margins was identified in the right breast at the 10 o'clock position, 7 cm from the nipple measuring 7 mm in diameter. An MR guided core biopsy was recommended for the original lesion and ultrasound-guided core biopsy of the right breast 10:00 o'clock lesion recommended. The MR guided core biopsy of the lesion at the 12:00 o'clock position right breast was performed on 06/28/2024. Pathology revealed fibrocystic changes with pseudoangiomatous stromal hyperplasia; negative for atypia or malignancy. The ultrasound-guided core biopsy of the right 10:00 o'clock lesion was performed on 07/03/[address] [facility]. Final pathology revealed fibroadenoma; negative for atypia or malignancy. 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 Sister No problems noted. Paternal Grandmother Breast cancer Paternal Uncle Mouth cancer Maternal Aunt History of uterine cancer Paternal Aunt Breast cancer Paternal Aunt Breast cancer Family/Other Breast cancer Mental health disorder Substance use disorder Social History Housing: Apartment Alcohol intake: current Alcohol intake frequency: holidays/special occasions only Patient Tobacco Use Status: Never used Tobacco e-Cigarette/Vaping Use: Never Used Second Hand Smoke Exposure: No service: No Current occupational status: employed Current occupation: [employer] Current occupational exposures/hazards: Yes Cognitive needs: No Hearing needs: No Vision needs: No Review of Systems Const All systems reviewed & are unremarkable except as noted in HPI and below Physical Exam Vital Signs: BMI result Body Mass Index 28.1 Const General: no acute distress Nutritional Appearance: well nourished Orientation/consciousness: patient oriented x3 Limitations: no limitations Chest Other: Exam deferred Resp Effort & Inspection: normal respiratory effort, no audible wheezes, no cough and no respiratory distress Skin Other: Warm, dry, no rash Neuro General: patient oriented x3 Assessment & Plan Assessment & Plan (1) At high risk for breast cancer: Code(s): Z91.89 - Other specified personal risk factors, not elsewhere classified Category: Medical (2) Abnormal ultrasound of breast: Code(s): R92.8 - Other abnormal and inconclusive findings on diagnostic imaging of breast Category: Medical (3) Abnormal MRI, breast: Code(s): R92.8 - Other abnormal and inconclusive findings on diagnostic imaging of breast Category: Medical (4) Family history of breast cancer: Code(s): Z80.3 - Family history of malignant neoplasm of breast Category: Medical Plan 33-year-old female patient determined to be at high risk for breast cancer due to family history, continues on the high riskwith yearly mammogram and breast MRI. Her most recent breast MR biopsy and ultrasound biopsy were both benign. Repeat ultrasound and MRI is recommended in 6 months. She will also be due for her annual mammogram in October 2024. I recommended she follow up in 6 months for routine breast examination. She is welcome to call sooner for any new concerns. She is also considering her options for risk reduction surgery including possible bilateral prophylactic mastectomy. I suggested she speak with plastic surgery to review her surgical options. She has been referred to Dr. Rekha Yen. Orders: Orders US breast RT complete 01/02/25 R92.8 - Other abnormal and inconclusive findings on diagnostic imaging of breast, Z91.89 - Other specified personal risk factors, not elsewhere classified MR breast BI wo/w con 07/05/24 R92.8 - Other abnormal and inconclusive findings on diagnostic imaging of breast, Z91.89 - Other specified personal risk factors, not elsewhere classified Referrals Plastic Surgery Referral Z80.3 - Family history of malignant neoplasm of breast, Z91.89 - Other specified personal risk factors, not elsewhere classified Coding Level of Care Code Est Pt Level 3 (71568) Complex EM visit Add On G2211 Diagnoses At high risk for breast cancer Z91.89 Abnormal ultrasound of breast R92.8 Abnormal MRI, breast R92.8 Family history of breast cancer Z80.3
--- OUTSIDE RECORDS SUMMARY | 2024-07-05 15:20 | XMS_ITS ---
Author Name [facility] Organization Unknown Immunizations Vaccine Date Source Lot Number Status Covid-19 mRNA Primary Series Vaccine - Moderna 0.5 mL Full Dose 05/22/2020 [facility] [id number] completed Covid-19 mRNA Primary Series Vaccine - Moderna 0.5 mL Full Dose 06/19/2020 [facility] [id number] completed
--- OUTSIDE RECORDS SUMMARY | 2024-07-05 15:20 | XMS_ITS | Encounter Summary ---
Author Organization [facility] Address [address] [place] [address] Care Team Providers Care Claim Analyst Name Role Phone Unknown Primary Care Provider [phone] Encounter Details Date Type Department Care Team (Late st Contact Info) Description 06/28/2024 Orders Only [facility] [address] [place] [address] Liliya Leyva [address] [place] [address] Social History Tobacco Use Types Packs/Day [...] Procedure Name Priority Date/Time Associated Diagnosis Comments MG POST BIOPSY MAMMOGRAM- RIGHT Routine 06/28/2024 12:11 PM EST documented in this encounter Results * MG POST BIOPSY MAMMOGRAM- RIGHT (06/28/2024 12:11 PM EST) Anatomical Region Laterality Modality Other 06/28/2024 10:1 5 AM EST 06/28/2024 10:15 AM EST Narrative 06/28/2024 12:49 PM EST EXAMINATION: MR GUIDED BREAST BIOPSY, RIGHT CLINICAL INFORMATION: A 15 mm linear ductal nonmass enhancement right breast 12 oclock. COMPARISON: MRI 06/11/2024. ?? PROCEDURE/FINDINGS: After the [...] by: ??Liliya Pan MD ??06/28/2024 12:49 PM [facility] Thank you for referring your patient to us, Liliya Pan MD [phone] (Electronically Signed - 06/28/2024 12:49) Copy: LILIYA SKY [address] [place] [address] PATIENT , ?? Procedure Note Liliya Pan MD - 06/28/2024 EXAMINATION: MR GUIDED BREAST BIOPSY, RIGHT CLINICAL [...] Pan MD 06/28/2024 12:49 PM EST RPWorkstation: [id number] Thank you for referring your patient to us, Liliya Pan MD [phone] (Electronically Signed - 06/28/2024 12:49) Copy: LILIYA SKY NP [facility] [address] [place] [address] PATIENT , Liliya HODGE LEGACY PROCEDURE S documented in this encounter Visit Diagnoses Not on filedocumented in this encounter Care Teams Claim Analyst Relationship Specialty Start Date End Date Unknown Unknow Provider Address PCP - General 05/21/20 documented as of this encounter
--- OUTSIDE RECORDS SUMMARY | 2024-07-05 15:20 | XMS_ITS | Encounter Summary ---
Author Organization [facility] Address [address] [place] [address] Care Team Providers Care Telephone Clerks Supervisor Name Role Phone Unknown Primary Care Provider [phone] Encounter Details Date Type Department Care Team (Late st Contact Info) Description 06/13/2024 Orders Only [facility] [address] [place] [address] [address] Social History Tobacco Use Types [...] Name Priority Date/Time Associated Diagnosis Comments US BREAST DIAGNOSTIC RIGHT Routine 06/13/2024 5:34 PM EST documented in this encounter Results * US BREAST DIAGNOSTIC RIGHT (06/13/2024 5:34 [...] to Dougie AHMADI on 06/14/24 @ 9:26am. pt- Iveth Gonzalez The patient was informed of these findings at the time of the exam. The patient will receive a lay summary of the results of this breast imaging exam. BIRADS Category 4A: Suspicious Thank you for referring your patient to us, Liliya Pan MD [phone] (Electronically Signed - 06/14/2024 15:10) Copy: LILIYA SKY [facility] [address] [place] [address] Procedure Note Liliya Pan MD - 06/14/2024 [...] to Dougie AHMADI on 06/14/24 @ 9:26am. pt- Iveth Gonzalez The patient was informed of these findings at the time of the exam. The patient will receive a lay summary of the results of this breast imaging exam. BIRADS Category 4A: Suspicious Thank you for referring your patient to us, Liliya Pan MD [phone] (Electronically Signed - 06/14/2024 15:10) Copy: LILIYA SKY CAPACITY MANAGER [address] [place] [address] Liliya HODGE LEGACY PROCEDURE S documented in this encounter Visit Diagnoses Not on filedocumented in this encounter Care Teams Telephone Clerks Supervisor Relationship Specialty Start Date End Date Unknown Unknow Provider Address PCP - General 05/21/20 documented as of this encounter
--- OUTSIDE RECORDS SUMMARY | 2024-07-05 15:20 | XMS_ITS | Patient Health Record ---
Author Organization [facility] Address [address] [place] [address] Care Team Providers Care Automatic Washer Mechanic Name Role Phone Mauricio Martinez Primary Care Provider Unav ailable Iveth Rubi Unavailable [phone] Allergies Allergen (clinical drug ingredient) Drug/Non Drug Allergy documented on EMR Reaction Allergy Type Onset Date Status sulfamethoxazole / trimethoprim Bactrim nausea/vomiting Drug Allergy Active Adhesive blisters Allergy Active codeine Codeine anaphylaxis Drug Allergy Activ e Reason For Referral No Information Medications Medication SIG (Take, Route, Frequency, Duration) Notes Start Date End Date Status Xyzal Not-Taking prednisoLONE eye drops Not-Francois ing Keflex Not-Taking flonase 50 mcg/act as directed Not-Taking Keiko Allergy 60 MG 1 tablet Orally Tw ice a day for 30 day(s) Not-Taking Keiko Active Apri 0.15-30 MG-MCG 1 tablet Orally Once a day for 28 day(s) Active Immunizations Vaccine Route Administration Date Status Comme nts COVID-19 Moderna Vaccine Unknown 03/22/2021 Administered First Dose: 05/22/2020 Second dose:05/30/2020 Influenza Unknown 03/22/2021 Administered Social History Tobacco Use: Social History Observation Description Date Details (start date - stop date) Never Smoker NA - NA Tobacco Use/Smoking Question Answer Notes Are you a: nonsmoker Additional Findings: Tobacco Non-User Current no n-smoker Alcohol Screen Question Answer Notes Did you have a drink contain ing alcohol in the past year? Yes How often did you have a dri nk containing alcohol in the past year? 2 to 4 times a month (2 points) Points 2 Interpretation Negative Tobacco use other than smoking: Question Answer Notes Are you an other tobacco user? No Problems Problem Type SNOMED Code ICD Code Onset Dates Problem Status W/U Status Risk Notes Problem [id number] Hammer toe of left foot (M20.42) Active confirmed Plan Of Treatment Pending Test Test Name Order Date [id number] Destruction, 1-14 01/23/2013 Insurance Providers Payer Name Payer Address Payer Phone Subscriber Number Group Number Insured Name Patient Relationship to Insured Coverage Start Date Coverage End Date [facility] All Others [address] [place] [address] [id number] AAIveth Canales Self - patient is the insured Medical (General) History Medical History History ICD Code chronic sinusitis chicken pox warts sciatica allergies Covid 19 Surgical History Surgery Date(Month/Year) b/l vein ablation 03/12
--- OUTSIDE RECORDS SUMMARY | 2024-07-05 15:20 | XMS_ITS | Clinical Summary ---
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 Active levocetirizine (XYZAL) 5 MG tablet Take 5 mg by mouth. Active Immunizations Name Administration Dates Next Due Havrix Adult Prefilled Syringe 10/18/2018 Social History Tobacco Use Types Packs/Day Years Used Date Smoking Tobacco: Never Assessed Comments Unknown Sex and Gender Information Value Date Recorded Sex Assigned at Not on file Legal Sex Female 3:15 PM EDT Gender Identity Not on file Sexual Orientation Not on file Plan of Treatment Health Maintenance Due Date Last Done Comments DTaP/Tdap/Td Vaccines ([facility]) (6 - Tdap) 11/07/1999 12/18/1992, 02/08/1990, 05/05/1989, Additional history exists Depression: Screening Annually using PHQ-2/9 in Adults 18 yrs or above (or HM Modifier)([facility]) 2006 Hepatitis C Virus Infection in Adolescents and Adults: Screening (or Modifier) ([facility]) 2006 [facility] Screening Reminder: Annually for all adults ([facility]) 2006 Tobacco Smoking Cessation: i n Adults excluding Women: Behavioral and Pharmacotherapy Interventions ([facility]) 2006 Lipid Screening: Once for Women aged 20 to 45 yrs ([facility]) 2008 Cervical Cancer: hrHPV alone or with cotesting Pap for Pts 30-65yrs screening every 5yrs ([facility]) 2009 Cervical Cancer Screenin-65 yrs of age (or Modifier) 09/14/2021 Cervical Cancer Screening: Pap every 3 yrs pts age 21-65 09/14/2021 09/14/2018 Cervical Cancer: Pap Screening with Modifier timing ([facility] ) 09/14/2021 09/14/2018 Flu Vaccination: Yearly for ages 18mos through 64 years (or Modifier)([facility] ) 12/22/2023 COVID-19 Vaccine Screening: Initial Series and Booster Status ([facility]) ( - 2023- season) 2024 Zoster/Shingles Vaccine Series Screening: Adults aged 18+ yrs (or HM Modifiers)([facility] ) (1 of 2) 2038 Pneumococcal Vaccination Screening: Pts 0-19 & 19-64 yrs of age ([facility]) Aged Out No longer eligible based on patient's age to complete this topic Medical Devices Not on file Insurance [facility] Care Teams Lane Attendant Relationship Specialty Start Date End Date No, Pcp, 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
[2024-07-05 15:24] VITALS: BMI 28.1
== END 2024-07-05 15:40 | disposition home or self-care (01) ==
LOC: HO.HGS 15:17
PROVIDERS: PCP Nurse Practitioner Family; Visit Provider Surgery
DX: Z91.89 Other specified personal risk factors, not elsewhere classified (principal); R92.8 Other abnormal and inconclusive findings on diagnostic imaging of breast; Z80.3 Family history of malignant neoplasm of breast
CPT/HCPCS: 99213

== ENCOUNTER → 2024-07-05 15:17 | Outpatient (BNVA) | payer BC, SELFPAY | PROVIDERS: PCP Nurse Practitioner Family; Visit Provider Surgery ==

== ENCOUNTER 2024-11-30 10:23 | Outpatient (AMB) | payer OTHER, SELFPAY ==
--- OUTSIDE RECORDS SUMMARY | 2022-03-04 05:15 | XMS_ITS | Continuity of Care Document ---
Author Organization [facility] Address [address] [address] Phone Care Team Providers Care Photoflash Powder Mixer Name Role Phone Adrian READ, Aparna Unavailable Unavailable Allergies, Adverse Reactions, Alerts Substance Reaction Status Criticality codeine Active No Information trimethoprim Active No Information sulfamethoxazole Active No Informat ion Sulfa (Sulfonamide Antibiotics) Active No Information Medications Medication Instructions Dosage Effective Dates (start - stop) Status Comments APRI (unknown strength) Not Available - Active XYZAL (unknown strength) Not Available - Active Procedures Procedure Date Surgical Stockings Thigh Lengt Office/Outpt E&M Established 15 Mins - T elemedicine PT Did Not Receive Services Office/Outpt E&M Established 15 Mins September Duplex Scan-extrem Veins; Comp No Charge For Services Inj Scleros Solut; Mx Veins 1 2 Inj Scleros Solut; Mx Veins 1 2 Duplex Scan-extrem Veins; Uni/ Duplex Scan-extrem Veins; Uni/ Varithena, Multiple Truncal Veins Same L eg Varithena, Single Truncal Vein PT Did Not Receive Services Office/Outpt E&M Established 15 Mins Feb Duplex Scan-extrem Veins; Comp Duplex Scan-extrem Veins; Uni/ Sep-16-20 21 Duplex Scan-extrem Veins; Uni/ 21 Endovenous Rf, 1st Vein 18-30mmHg Waist/panty length gradient co mpression 18-30mmHg Waist/panty length gradient co mpression Endovenous Rf, 1st Vein Office/Outpt E&M Established 25 Mins Jul Office/Oupt E&M New Pt 45 Mins Surgical Stockings Duomed Thigh 021 Duplex Scan-extrem Veins; Comp Advance Directives Directive Yes / No Effective Date File Name No Information Encounters Encounter Description Practice Location Reason(s) For Visit Diagnoses Date Provider Providers Copied on Encounter Office/Outpt E&M Established 15 Mins - Telemedicine [facility], [address] [place] [address], [id number], tel:[phone] VR - [place] [facility] ([place], [place]) Venous insufficiency (chronic) (peripheral) 2 Adrian Braun. [address] [place] [address], [address], [place], [place], [id number] , [place]. tel:[phone] Referring Provider: Koby Delgado, [address] [place] [address] [address], [place], [address]. tel:[phone] [facility] [address], [id number], [place] tel:[phone] [place] - [place] - [place] No Information 2 Presley Whalen. [address] [place] [address], [address], [place], [address], [place]. tel:[phone] Referring Provider: Koby Delgado, [address] [place] [address] [address], [place], [address]. tel:[phone] Office/Outpt E&M Established 15 Mins [facility] [address], [id number], [place] tel:[phone] VR - [place] - [place] Body mass index (BMI) 26.0-26.9, adultLocalized edema 2 Presley Whalen. [address], [address], [place], [address], [place]. tel: [phone] Referring Provider: Koby Delgado, [address], [place], [address]. tel:[phone] [facility], [address] [facility], [place], [place], [id number], [place] tel:[phone] VR - [place] - [place] Chronic venous htn w oth comp of bilateral low extrm 2 Presley Whalen. [address], [address], [place], [address], [place]. tel: [phone] Referring Provider: Koby Delgado, [address] [place] [address] [address], [place], [address]. tel:[phone] [facility], [address] [place], [place] [address] [address], [place], [place], [id number], [place] tel:[phone] VR - [place] - [place] Spider Veins - (Telangiectasia ) 2 Presley Whalen. [address], [address], [place], [address], [place]. tel: [phone] Referring Provider: Koby Delgado, [address], [place], [address]. tel:[phone] 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 [address] [place] [address], [address], [place], [address], [place]. tel: [phone] Referring Provider: Koby Delgado, [address], [place], [address]. tel:[phone] [facility], [address] [facility], [place], [place], [id number], [place] tel:[phone] VR - [place] - [place] Spider Veins - (Telangiectasia ) 2 Presley Whalen. [address], [address], [place], [address], [place]. tel: [phone] Referring Provider: Koby Delgado, [address], [place], [address]. tel:[phone] [facility], [address] [facility] [address], [place], [place], [id number], [place] tel:[phone] VR - [place] - [place] Encntr for f/u exam aft trtmt for cond oth than malig neoplmChronic venous hypertension w oth comp of l low extrem 2 Presley Whalen. [address] [place] [address], [address], [place], [address], [place]. tel: [phone] Referring Provider: Koby Delgado, [address] [place] [address] [address], [place], [address]. tel:[phone] [facility], [address] [facility], [place], [place], [id number], [place] tel:[phone] VR - [place] - [place] Encntr for f/u exam aft trtmt for cond oth than malig neoplmVaricose veins of right lower extremities with pain 2 Presley Whalen. [address], [address], [place], [address], [place]. tel: [phone] Referring Provider: Koby Delgado, [address], [place], [address]. tel: 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 [address], [address], [place], [address], [place]. tel: [phone] Referring Provider: Koby Delgado, [address] [place] [address] [address], [place], [address]. tel:[phone] [facility], [address] [address], [place], [place], [id number], [place] tel:[phone] - [place] - [place] Varicose veins of right low extrm w oth complications 2 Presley Whalen. [address] [place] [address], [address], [place], [address], [place]. tel: [phone] Referring Provider: Koby Delgado, [address] [place] [address] [address], [place], [address]. tel:[phone] [facility], [address] [place] [address], [place], [place], [id number], [place] tel:[phone] VR - [place] - [place] No Information 2 Presley Whalen. [address] [place] [address], [address], [place], [address], [place]. tel: [phone] Referring Provider: Koby Delgado, [address] [place] [address] [address], [place], [address]. tel:[phone] Office/Outpt E&M Established 15 Mins [facility], [address] [place] [address], [place], [place], [id number], [place] [phone] VR - [place] - [place] Body mass index (BMI) 29.0-29.9, adultVenous insufficiency (chronic) (peripheral)Ny icose veins of bilateral lower extremities with pain Oct-2 1 Presley Whalen. [address], [address], [place], [address], [place]. tel: [phone] Referring Provider: Koby Delgado, [address], [place], [address]. tel:[phone] [facility], [address] [address], [place], [place], [id number], [place] tel:[phone] VR - [place] - [place] Chronic venous htn w oth comp of bilateral low extrm Oct-2 1 Presley Whalen. [address], [address], [place], [address], [place]. tel: [phone] Referring Provider: Koby Delgado, [address] [place] [address] [address], [place], [place], [facility]. tel:[phone] [facility], [address] [place], [place] [address]e [address] [place] [address], [id number], [place] tel:[phone] VR - [place] - [place] Encntr for f/u exam aft trtmt for cond oth than malig neoplmChronic venous hypertension w oth comp of l low extrem Sep-1 1 Presley Whalen. [address] [place] [address], [address], [place], [address], [place]. tel: [phone] Referring Provider: Koby Delgado, [address], [place], [address]. tel:[phone] [facility], [address], [id number], [place] tel:[phone] VR - [place] - [place] Encntr for f/u exam aft trtmt for cond oth than malig neoplmChronic venous hypertension w oth comp of r low extrem Sep-0 1 Presley Whalen. [address], [address], [place], [address], [place]. tel: [phone] Referring Provider: Koby Delgado, [address], [place], [address]. tel:[phone] 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 [address], [address], [place], [address], [place]. tel: [phone] Referring Provider: Koby Delgado, [address] [place] [address] [address], [place], [address]. tel: [facility], [address] [facility] [address], [place], [place], [id number], [place] tel:[phone] VR - [place] - [place] Venous insufficiency (chronic) (peripheral) Sep-0 1 Presley Whalen. [address] [place] [address], [address], [place], [address], [place]. tel: [phone] Referring Provider: Koby Delgado, [address], [place], [address]. tel: [facility], [address] [facility] [address], [place], [place], [id number], [place] tel:[phone] VR - [place] - [place] Venous insufficiency (chronic) (peripheral) Sep-0 1 Presley Whalen. [address] [place] [address], [address], [place], [address], [place]. tel: [phone] Referring Provider: Koby Delgado, [address], [place], [address]. tel:[phone] [facility], [address], [id number], [place] tel:[phone] VR - [place] - [place] Venous insufficiency (chronic) (peripheral)Spi celio Veins - (Telangiectasia )Varicose veins of right low extrm w oth complications Sep-0 1 Presley Whalen. [address], [address], [place], [address], [place]. tel: [phone] Referring Provider: Koby Delgado, [address] [place] [address] [address], [place], [place], [facility]. tel: Office/Outpt E&M Established 25 Mins [facility], [address] [place] [address], [id number], [place] tel:[phone] VR - [place] - [place] Asymptomatic varicose veins of bilateral lower extremitiesSpid er Veins - (Telangiectasia )Body mass index (BMI) 29.0-29.9, adult Mar- 1 Presley Whalen. [address] [place] [address], [address], [place], [address], [place]. tel: [phone] Referring Provider: Koby Delgado, [address] [place] [address] [address], [place], [place], [facility]. tel: Office/Oupt E&M New Pt 45 Mins [facility], [address] [place] [address], [id number], [place] tel:[phone] VR - [place] - [place] Body mass index (BMI) 30.0-30.9, adultVenous insufficiency (chronic) (peripheral)Ny icose veins of bi low extrem w oth complications Jun- 1 Presley Whalen. [address] [place] [address], [address], [place], [address], [place]. tel: [phone] Referring Provider: Koby Delgado, [address] [place] [address] [address], [place], [place], [facility]. tel: [facility], [address] [place] [address], [id number], tel:[phone] - [place] - [place] Chronic venous htn w oth comp of bilateral low extrm 1 Presley Whalen. [address], [address], [place], [address], [place]. tel:[phone] Referring Provider: Koby Delgado, [address], [place], [address]. tel:[phone] Family History Family Member Type Diagnosis Age At Onset Father Problem (finding) Obesity Mother Problem (finding) Obesity Father Problem (finding) Hypertension Mother Problem (finding) Varicose Veins Payers Payer name Insurance type Covered alliance party ID Authoriza tion(s) No Information Social History Type Description Quantity Date Captured Comments Alcohol Use Details Caffeine Use Details Unknown Tobacco Use Status Never smoked tobacco 2021 Smoking Status Never smoker Non-Smoking Tobacco Use Details : No Details Available : No Details Available Sex Female Chief Complaint And Reason For Visit No Information Reason For Referral Reason For Referral No Information Plan Of Treatment Date Type Action Status Goal Diet education completed Goal Diet education completed Goal Diet education completed Goal Diet education completed Referral Ordered: Duplex Scan-extrem Veins; Comp Bilateral leg ordered History Of Present Illness Encounter Date Complaint History Of Prese nt Illness Fatigue Swelling Varicosities Spider Veins Varicosities Varicosities Cramping Varicosities Functional Status Date Functional Assessmen t No Information Instructions Date Instruction Additional Infor carlos a Patient education booklet given Related to Venous Insufficiency (Chronic / Peripheral) Giving Encouragement to Exercise Related to Body mass index [BMI] 26.0-26.9, adult Diet education Related to Body mass index [BMI] 26.0-26.9, adult Giving Encouragement to Exercise Related to Body mass index [BMI] 29.0-29.9, adult Diet education Related to Body mass index [BMI] 29.0-29.9, adult Continue compression stocking us e Related to Venous Insufficiency (Chronic / Peripheral) Pre and post instruc tions reviewed and provided Related to Venous Insufficiency (Chronic / Peripheral) Giving Encouragement to Exercise Related to Body mass index [BMI] 29.0-29.9, adult Diet education Related to Body mass index [BMI] 29.0-29.9, adult Pre and post instruc tions reviewed and provided Related to Asymptomatic Varicose Vns; BILAT Patient education booklet given Related to Asymptomatic Varicose Vns; BILAT Giving Encouragement to Exercise Related to Body mass index [BMI]30.0-30.9, adult Diet education Related to Body mass index [BMI]30.0-30.9, adult Patient education booklet given Related to Venous Insufficiency (Chronic / Peripheral) Pre and post instruc tions reviewed and provided Related to Venous Insufficiency (Chronic / Peripheral) Assessments Type Assessment Date assessment Venous insufficiency (chronic) ( peripheral) Patient Care Teams Name Effective Dates (start - stop) Status Members No Information
--- NOTE | 2024-11-30 10:27 | A.OFFVIS_ITS ---
Vital Signs 3 11/30/24 10:34 Height 5 ft 3 in Weight 158 lb 11.725 oz BMI 28.1 Intake Visit Reasons: 6 mth breast exam Intake Note: Patient is seen in office for 6 month follow up, breast exam. Pt c/o: no concerns regarding the breast, lump right side of the scalp, painful to the touch, aches, recently notice it and would like to have it checked due to family hx of lipoma Apparel Designer Required: No Accompanied by: Self / Same As Patient Allergies codeine Allergy (Unknown, Verified 11/30/24 10:33) vomiting Sulfa (Sulfonamide Antibiotics) Allergy (Unknown, Verified 11/30/24 10:33) vomitting, vomiting Medication List - Last Reconciled 11/30/24 by Mauricio Leyva MD desogestrel-ethinyl estradiol 0.15-0.03 mg 1 tab PO DAILY fexofenadine (Keiko Allergy) 180 mg PO DAILY fluticasone propionate 50 mcg/actuation (Allergy Relief (fluticasone)) 1 spray intranasal DAILY lorazepam 1 mg PO DAILY PRN multivitamin 1 tab PO DAILY HPI Comments Details: 34-year-old female, previous patient of Dr. Stevenson returning for a high risk breast evaluation.? Family history is significant for a paternal aunt with breast cancer diagnosed at the age of 45 and a 2nd paternal aunt with breast cancer identified at the age of 48, a paternal grandfather with colon cancer at the age of 75, her paternal grandmother with colon cancer at the age of 75 and a paternal great grandmother with breast cancer at the age of 50.?Patient is and is currently on control pills.? She has a history of a prior right breast needle core biopsy as a 14-year-old which was benign.? She denies any other breast problems or breast surgery.? She denies current nipple discharge.? She denies Ashkenazi Jehovah'S Witness heritage.?? Her lifetime risk of breast cancer was determined to be 24.6% placing her at a high risk category.? She has been on a high risk protocol including yearly mammogram and breast MRIs. Patient previously underwent [facility] genetic testing on 11/30/2016 which revealed a heterozygous MUTYH mutation.? Repeat Genetic testing on 07/16/2020 revealed a breast cancer risk score of 24% and was positive for the heterozygous MUTYH mutation.? No other new mutations or VUS were identified. She is being followed by Dr. Tarango from Gastroenterology. Mammogram performed by [facility] on 11/14/2023 also revealed no mammographic evidence of malignancy (BI-RADS 1). ?Breast MRI performed at [facility] on 06/11/2024 revealed a normal left breast but on the right side and area of non-mass enhancement measuring up to 17 mm in the upper central right breast posterior depth was identified. Right breast ultrasound was recommended and if no correlate seen an MR guided core biopsy was recommended (BI-RADS 1 left breast, BI-RADS 4 right breast). An ultrasound of the right breast was performed at [facility] on 06/13/2024. The finding in question could not be identified however a oval avascular solid mass with circumscribed margins was identified in the right breast at the 10 o'clock position, 7 cm from the nipple measuring 7 mm in diameter. An MR guided core biopsy was recommended for the original lesion and ultrasound-guided core biopsy of the right breast 10:00 o'clock lesion recommended. The MR guided core biopsy of the lesion at the 12:00 o'clock position right breast was performed on 06/28/2024. Pathology revealed fibrocystic changes with pseudoangiomatous stromal hyperplasia; negative for atypia or malignancy. The ultrasound-guided core biopsy of the right 10:00 o'clock lesion was performed on 07/03/2024 at [facility]. Final pathology revealed fibroadenoma; negative for atypia or malignancy. She also notes a lump in the right scalp which is causing increased discomfort especially when pulling her hair up. She is concerned about cancer and would like to have the lesion removed. 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 Sister No problems noted. Paternal Grandmother Breast cancer Paternal Uncle Mouth cancer Maternal Aunt History of uterine cancer Paternal Aunt Breast cancer Paternal Aunt Breast cancer Family/Other Breast cancer Mental health disorder Substance use disorder Social History Housing: Apartment Alcohol intake: current Alcohol intake frequency: holidays/special occasions only Patient Tobacco Use Status: Never used Tobacco e-Cigarette/Vaping Use: Never Used Second Hand Smoke Exposure: No service: No Current occupational status: employed Current occupation: [employer] Current occupational exposures/hazards: Yes Cognitive needs: No Hearing needs: No Vision needs: No Review of Systems Const All systems reviewed & are unremarkable except as noted in HPI and below Physical Exam Vital Signs: BMI result Body Mass Index 28.1 Const General: healthy appearing, no acute distress and well developed HEENT Head images: 2 1. Site of palpable cyst right forehead consistent with Pilar cyst Chest Other: Diffuse fibrocystic changes bilaterally Left breast: No skin change, no nipple retraction, no nipple discharge, no palpable mass, no enlarged lymph nodes. Right breast: No skin change, no nipple retraction, no nipple discharge, no palpable mass, no enlarged lymph nodes Resp Effort & Inspection: normal respiratory effort GI Inspection: Yes normal to inspection Skin General skin exam: dry skin, no ecchymosis and no erythema Extrem General: Yes no clubbing, cyanosis or edema Assessment & Plan Assessment & Plan (1) At high risk for breast cancer: Code(s): Z91.89 - Other specified personal risk factors, not elsewhere classified Category: Medical (2) Abnormal ultrasound of breast: Code(s): R92.8 - Other abnormal and inconclusive findings on diagnostic imaging of breast Category: Medical (3) Abnormal MRI, breast: Code(s): R92.8 - Other abnormal and inconclusive findings on diagnostic imaging of breast Category: Medical (4) Family history of breast cancer: Code(s): Z80.3 - Family history of malignant neoplasm of breast Category: Medical (5) Pilar cyst of scalp: Code(s): L72.11 - Pilar cyst Category: Medical Plan 34-year-old female patient determined to be at high risk for breast cancer due to family history, continues on the high riskwith yearly mammogram and breast MRI. Her most recent breast MR biopsy and ultrasound biopsy were both benign. She is now due for an annual mammogram and routine MRI in 6 months. I recommended she follow up in 6 months for routine breast examination. She is welcome to call sooner for any new concerns. She is also considering her options for risk reduction surgery including possible bilateral prophylactic mastectomy. I suggested she speak with plastic surgery to review her surgical options. She has been referred to Dr. Param Ortega. Orders: Orders 2 MM screening mammo BI 11/30/24 Z80.3 - Family history of malignant neoplasm of breast, Z91.89 - Other specified personal risk factors, not elsewhere classified Coding Level of Care Code Est Pt Level 3 (22246) Complex EM visit Add On G2211 Diagnoses At high risk for breast cancer Z91.89 Abnormal ultrasound of breast R92.8 Abnormal MRI, breast R92.8 Family history of breast cancer Z80.3 Pilar cyst of scalp L72.11
[2024-11-30 10:34] VITALS: BMI 28.1
--- OUTSIDE RECORDS SUMMARY | 2024-11-30 10:52 | XMS_ITS | Patient Health Record ---
Author Organization [facility] Address [address] [place] [address] Care Team Providers Care Christmas Tree Farmer Name Role Phone Mauricio Martinez Primary Care Provider Unav ailIveth Samuels Unavailable [phone] Allergies Allergen (clinical drug ingredient) Drug/Non Drug [...] MG 1 tablet Orally Tw ice a day; Duration: 30 day(s) Not-Francois ing Keiko Active Apri 0.15-30 MG-MCG 1 tablet Orally Once a day; Duration: 28 day(s) Active Immunizations Vaccine Route Administration [...] Problem Status W/U Status Risk Notes Problem Acquired hammer toe of left foot ([id number]) Hammer toe of left foot (M20.42) Active confirmed Encounters Encounter Location Date Provider Diagnosis [facility] [address] [address] 09/12/2024 Iveth Rubi Plan Of Treatment Pending Test Test Name Order Date [id number] Destruction, 1-14 01/23/2013 Insurance Providers Payer Name Payer Address Payer Phone Subscriber Number Group Number Insured Name Patient Relationship to Insured Coverage Start Date Coverage End Date [facility] All Others [address] [place] [address] [id number] Iveth Collins Self - patient is the insured Medical (General) History Medical History History ICD Code chronic sinusitis chicken pox warts sciatica allergies Covid 19 Surgical History Surgery Date(Month/Year) b/l vein ablation 03/12
--- OUTSIDE RECORDS SUMMARY | 2024-11-30 10:52 | XMS_ITS ---
Author Name [facility] Organization Unknown History of Medication Use Medication Directions Dispensed Refills Start Date End Date Stat us cholecalciferol (VITAMIN D3) 125 MCG (5000 UT) tablet Take 1,000 Units by mouth daily. active desogestrel-ethinyl estradiol (Apri) 0.15-30 MG-MCG per tablet 1 tablet Orally Once a day for 28 day(s) active fexofenadine (ROSA) 60 MG tablet Take 1 tablet (60 mg total) by mouth daily. active fluticasone (FloNASE) 50 mcg/spray nasal spray 1 spray into each nostril daily. active omega-3 fatty acids (FISH OIL) 1000 MG Cap capsule Take by mouth daily. active Allergies Allergen Reaction Severity Comment Documented Date Source Statu s TRIMETHOPRIM OTHER (SEE COMMENTS) Nausea and vomiting 06/25/2020 [facility] active SULFAMETHOXAZOLE-T RIMETHOPRIM GI INTOLERANCE/NA USEA/VOMITING 04/07/2018 [facility] active CODEINE NAUSEA AND VOMITING [facility] Problems Problem Status Onset Date Problem Type Date of Resoluti on Source Family history of breast cancer active EncounterDiagnosisAct [facility] Encounter for screening mammogram for high-risk patient active EncounterDiagnosisAct [facility] Fibroadenoma of right breast active EncounterDiagnosisAct [facility] Abnormal MRI, breast active EncounterDiagnosisA ct CCT Extremely dense tissue of both breasts on mammography active EncounterDiagnosisAct [facility] Immunizations Vaccine Date Source Lot Number Status Covid-19 mRNA Primary Series Vaccine - Moderna 0.5 mL Full Dose 06/19/2020 [facility] [id number] completed Covid-19 mRNA Primary Series Vaccine - Moderna 0.5 mL Full Dose 05/22/2020 [facility] [id number] completed Encounters Encounter Type Encounter Reason Primary Diagnosis Location Date Ambulatory Benign neoplasm of right breast Benign neoplasm of right breast [facility] 08/10/2024 Ambulatory Other abnormal and inconclusive findings on diagnostic imaging of breast Other abnormal and inconclusive findings on diagnostic imaging of breast [facility] 07/03/2024 Ambulatory Other abnormal and inconclusive findings on diagnostic imaging of breast Other abnormal and inconclusive findings on diagnostic imaging of breast [facility] 06/28/2024 Care Team Organization Name Specialty Phone Email Start Date End Da te [facility] 08/01/2024 09/11/2024 [facility] LILIYA SKY Primary Care 07/20/2024 [facility] 06/28/2024 [employer] Insurance 06/09/2022 0 10/24/2024
--- OUTSIDE RECORDS SUMMARY | 2024-11-30 10:52 | XMS_ITS | Clinical Summary ---
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) 2006 Hepatitis C Virus Infection in Adolescents and Adults: Screening (or Modifier) ([facility]) 2006 [facility] Screening Reminder: Annually for all adults ([facility]) 2006 Tobacco Smoking Cessation: i n Adults excluding Women: Behavioral and Pharmacotherapy Interventions ([facility]) 2006 Cervical Cancer: hrHPV alone or with cotesting Pap for Pts 30-65yrs screening every 5yrs ([facility]) 2009 Cervical Cancer Screenin-65 yrs of age (or Modifier) 09/14/2021 Cervical Cancer Screening: Pap every 3 yrs pts age 21-65 09/14/2021 09/14/2018 Cervical Cancer: Pap Screening with Modifier timing ([facility]) 09/14/2021 09/14/2018 COVID-19 Vaccine Screening: Initial Series and Booster Status ([facility]) (2023- season) 2024 Flu Vaccination: Yearly for ages 18mos through 64 years (or Modifier)([facility]) 12/21/2024 Zoster/Shingles Vaccine Series Screening: Adults aged 18+ yrs (or HM Modifiers)([facility]) (1 of 2) 2038 Pneumococcal Vaccination Screening: Pts 0-19 & 19-49 yrs of age ([facility]) Aged Out No longer eligible based on patient's age to complete this topic Medical Devices Not on file Insurance [facility] Care Teams Director Of Search Engine Marketing Relationship Specialty Start Date End Date No, Pcp, DIETARY SUPERVISOR N/A Do not use PCP - General 02/20/20
== END 2024-11-30 10:55 | disposition home or self-care (01) ==
LOC: HO.HGS 10:24
PROVIDERS: PCP Nurse Practitioner Family; Visit Provider Surgery
DX: Z91.89 Other specified personal risk factors, not elsewhere classified (principal); R92.8 Other abnormal and inconclusive findings on diagnostic imaging of breast; Z80.3 Family history of malignant neoplasm of breast; L72.11 Pilar cyst
CPT/HCPCS: 99213

== ENCOUNTER 2024-12-05 09:00 | Outpatient (AMB) | payer OTHER, SELFPAY ==
--- NOTE | 2024-12-05 09:15 | MHC.OFFVIS ---
Vital Signs 12/05/24 09:34 Height 5 ft 3 in Weight 170 lb BMI 30.1 BP 122/89 Blood Pressure Location Lt brachial Position Sitting Pulse 80 Intake Visit Reasons: excision scalp lump Intake Note: Patient is seen for office procedure, excision of a scalp mass. Pt c/o: here for removal of mass Production Tech Required: No Accompanied by: Self / Same As Patient Allergies codeine Allergy (Unknown, Verified 11/30/24 10:33) vomiting Sulfa (Sulfonamide Antibiotics) Allergy (Unknown, Verified 11/30/24 10:33) vomitting, vomiting HPI Comments Details: Patient returns for excision of cyst of right scalp. She feels it is smaller today because she has been leaving it alone. 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 Sister No problems noted. Paternal Grandmother Breast cancer Paternal Uncle Mouth cancer Maternal Aunt History of uterine cancer Paternal Aunt Breast cancer Paternal Aunt Breast cancer Family/Other Breast cancer Mental health disorder Substance use disorder Social History Housing: Apartment Alcohol intake: current Alcohol intake frequency: holidays/special occasions only Patient Tobacco Use Status: Never used Tobacco e-Cigarette/Vaping Use: Never Used Second Hand Smoke Exposure: No service: No Current occupational status: employed Current occupation: [employer] Current occupational exposures/hazards: Yes Cognitive needs: No Hearing needs: No Vision needs: No Physical Exam Vital Signs: Last Vital Signs Pulse 80 12/05/24 09:34 BP 122/89 12/05/24 09:34 BMI result Body Mass Index 30.1 Office Procedures Excision Details: Preoperative diagnosis: Cyst of right scalp Postoperative diagnosis: Bony prominence, no cyst identified Procedure: Excision of possible right scalp cyst Surgeon: Mauricio Leyva MD Crop Nutrition Scientist: None Anesthesia: Lidocaine 1% with epinephrine Indications for procedure: 34-year-old female presenting with a palpable cyst of the right scalp noted on recent examination. Since this examination the cyst has decreased in size in his not as noticeable on examination. The patient wishes to proceed with an exploration and possible excision. Operative findings: No cyst could be identified however a palpable ridge on the cranium is identified she appears to be causing the area of swelling. No cyst could be identified. Specimen: None Estimated blood loss: Less than 2 mL Complications: None Procedure details: Patient was brought to the procedure room and placed in a left lateral decubitus position. The site of surgery was confirmed by the patient in the right parietal scalp. Skin was prepped with Betadine and draped in a sterile fashion. Local anesthesia was then infiltrated over the cyst. An incision was then made measuring approximately 1 cm. This was carried down into the subcutaneous tissue. Subcutaneous tissue and deeper tissue was explored using a hemostat. A palpable ridge in the cranium was identified however no definite cyst could be identified. After an extensive exploration the decision was made to abort. Skin was then closed using a single 3-0 Prolene suture. Bacitracin was then applied. The patient tolerated the procedure well and was discharged to home in stable condition. [id number] scalp/neck/feet/hands/genitalia <.05cm Procedure code (CPT) selection complete Assessment & Plan Assessment & Plan (1) Pilar cyst of scalp: Code(s): L72.11 - Pilar cyst Category: Medical Plan Patient underwent exploration for a possible Pilar cyst of the right scalp unfortunately no cyst could be identified today. The findings were explained in detail to the patient she expressed understanding. She has a single Prolene suture which we will need to be removed in 1-1.5 weeks. She is welcome to call sooner for any new concerns. Coding Level of Care Code Procedure Only Diagnoses Pilar cyst of scalp L72.11 CPT Codes Scalp/Neck/Hands/Feet/Genetalia - CPT: 40118-[id number] scalp/neck/feet/hands/genitalia <.05cm ([id number])
--- OUTSIDE RECORDS SUMMARY | 2024-12-05 09:16 | XMS_ITS | Patient Health Record ---
Author Organization [facility] Address [address] [place] [address] Care Team Providers Care Assembly Technician Name Role Phone Mauricio Martinez Primary Care Provider Unav ailIveth Samuels Unavailable [phone] Allergies Allergen (clinical drug ingredient) Drug/Non Drug [...] Problem Acquired hammer toe of left foot (7083615131158 103) Hammer toe of left foot (M20.42) Active confirmed Encounters Encounter Location Date Provider Diagnosis [facility] [address] [address] 09/12/2024 Iveth Rubi Plan Of Treatment Pending Test Test Name Order Date [id number] Destruction, 1-14 01/23/2013 Insurance Providers Payer Name Payer Address Payer Phone Subscriber Number Group Number Insured Name Patient Relationship to Insured Coverage Start Date Coverage End Date [facility] All Others [address] [place] [address] [phone] [id number] Iveth Collins Self - patient is the insured Medical (General) History Medical History History ICD Code chronic sinusitis chicken pox warts sciatica allergies Covid 19 Surgical History Surgery Date(Month/Year) b/l vein ablation 03/12
--- OUTSIDE RECORDS SUMMARY | 2024-12-05 09:16 | XMS_ITS | Clinical Summary ---
Author Organization [facility] [employer] Address [address] [place] [address] Care Team Providers Care Crown Attacher Name Role Phone No, Pcp STEEL CHECKER Primary Care Provider Unavailabl e Medications desogestrel-ethi [...] Due Date Last Done Comments DTaP/Tdap/Td Vaccines ([facility]) (6 - Tdap) 11/07/1999 12/18/1992, 02/08/1990, 05/05/1989, Additional history exists Depression: Screening Annually using PHQ-2/9 in Adults 18 yrs or above (or HM Modifier)([facility]) 2006 Hepatitis C Virus Infection in Adolescents and Adults: Screening (or Modifier) ([facility]) 2006 [facility] Screening Reminder: Annually for all adults ([facility]) 2006 Tobacco Smoking Cessation: i n Adults excluding Women: Behavioral and Pharmacotherapy Interventions ([facility]) 2006 Cervical Cancer: hrHPV alone or with cotesting Pap for Pts 30-65yrs screening every 5yrs ([facility]) 2009 Cervical Cancer Screenin-65 yrs of age (or Modifier) 09/14/2021 Cervical Cancer Screening: Pap every 3 yrs pts age 21-65 09/14/2021 09/14/2018 Cervical Cancer: Pap Screening with Modifier timing ([facility]) 09/14/2021 09/14/2018 COVID-19 Vaccine Screening: Initial Series and Booster Status ([facility]) (2023- season) 2024 Flu Vaccination: Yearly for ages 18mos through 64 years (or Modifier)([facility]) 12/21/2024 Zoster/Shingles Vaccine Series Screening: Adults aged 18+ yrs (or HM Modifiers)([facility]) (1 of 2) 2038 Pneumococcal Vaccination Screening: Pts 0-19 & 19-49 yrs of age ([facility]) Aged Out No longer eligible based on patient's age to complete this topic Medical Devices Not on file Insurance [facility] Care Teams Crown Attacher Relationship Specialty Start Date End Date No, Pcp, STEEL CHECKER N/A Do not use PCP - General 02/20/20
--- OUTSIDE RECORDS SUMMARY | 2024-12-05 09:16 | XMS_ITS | Clinical Summary ---
Author Organization [facility] Address [address] [place] [address] Care Team Providers Care Restorer Lace And Textiles Name Role Phone Mauricio Puente MD Primary Care Provider Allergies Active Allergy Reactions Criticality Noted Date Comments Codeine Anaphylaxis,Nausea And Vomiting High 04/07/2018 Sulfamethoxazole-Trimet hoprim Nausea And Vomiting,GI Intolerance/Nausea/V omiting Low 04/07/2018 Trimethoprim Other (See Comments) Low 06/25/2020 Nausea and vomiting Medications cholecalciferol (VITAMIN D3) 125 MCG (5000 UT) tablet Take 1,000 Units by mouth daily. Active omega-3 fatty acids (FISH OIL) 1000 MG Cap capsule Take by mouth daily. Active fluticasone (FloNASE) 50 mcg/spray nasal spray 1 spray into each nostril daily. Active fexofenadine (ROSA) 60 MG tablet Take 1 tablet (60 mg total) by mouth daily. Active desogestrel-eth inyl estradiol (Apri) 0.15-30 MG-MCG per tablet 1 tablet Orally Once a day for 28 day(s) Active Immunizations Immunization Administration Dates Next Due Covid-19 mRNA Primary Series Vaccine - Moderna 0.5 mL Full Dose 06/19/2020,05/22/2020 Family History Medical History Relation Name Comments Colon cancer Father Uterine cancer Maternal Aunt Breast cancer Paternal Aunt 1 Breast cancer Paternal Aunt 2 Colon cancer Paternal Grandfather twice Relation Name Status Comments Father Maternal Aunt Paternal Aunt 1 Paternal Aunt 2 Alive Paternal Grandfather Social History Tobacco Use Types Packs/Day Years Used Date Smoking Tobacco: Never Smokeless Tobacco: Never Alcohol Use Standard Drinks/Week Comments Yes 0 (1 standard drink = 0.6 oz pur e alcohol) Social Comments Unknown Sex and Gender Information Value Date Recorded Sex Assigned at Female 06/29/2024 4:26 PM EST Legal Sex Female 12:44 PM EST Gender Identity Female 06/29/2024 4:26 PM EST Sexual Orientation Not on file Last Filed Vital Signs Vital Sign Reading Time Taken Comments Blood Pressure 145/90 08/10/2024 1:53 PM EDT Pulse 81 08/10/2024 1:53 PM EDT Temperature - - Respiratory Rate - - Oxygen Saturation 99% 08/10/2024 1:53 PM EDT Inhaled Oxygen Concentration - - Weight 79.4 kg (175 lb) 08/10/2024 1:53 PM EDT Height 160 cm (5' 3 ) 08/10/2024 1:53 PM EDT Body Mass Index 31 08/10/2024 1:53 PM EDT Plan of Treatment Upcoming Encounters Date Type Department Care Team (Late st Contact Info) Description 02/27/2025 8:45 AM EDT Consult [facility] Plastic & Reconstructive Surgery [address] [place] [address] Faiza Garcia MD [address] [facility] [address] [place] [address] Brenda Villegas MD [address] [facility] [address] [place] [address] Health Maintenance Due Date Last Done Comments Hepatitis C Virus Screening 1988 HIV Screening 2001 DTaP/Tdap/Td Vaccines (1 - Tdap) 11/07/2007 Hepatitis B Vaccines (1 of 3 - 19+ 3-dose series) 11/07/2007 Pap Smear (Ages 21-65) 2009 COVID-19 Vaccine ( season) 2024 03/22/2021, 06/19/2020, 05/22/2020 Influenza Vaccine 12/21/2024 02/21/2024, , 03/04/2020, Additional history exists HPV Vaccines Aged Out No longer eligi ble based on patient's age to complete this topic Pneumococcal Vaccine: Pediatric (0-5 Years) and At-Risk Patients (6 to 49 Years) Aged Out No longer eligible based on patient's age to complete this [place] [id number] [facility] OUT [facility] Care Teams Restorer Lace And Textiles Relationship Specialty Start Date End Date Mauricio Puente MD [address] [place] [phone] PCP - General Family Medicine 07/20/24
[2024-12-05 09:34] VITALS: BP 122/89; PULSE 80; BMI 30.1
== END 2024-12-05 09:37 | disposition home or self-care (01) ==
LOC: HO.HGS 09:01
PROVIDERS: PCP Nurse Practitioner Family; Visit Provider Surgery
DX: L72.11 Pilar cyst (principal)
CPT/HCPCS: 11420

== ENCOUNTER → 2024-12-05 09:00 | Outpatient (BNVA) | payer OTHER, SELFPAY | PROVIDERS: PCP Nurse Practitioner Family; Visit Provider Surgery | DX: L72.11 Pilar cyst (principal) | CPT/HCPCS: 11420 ==

== ENCOUNTER → 2024-12-12 09:00 | Outpatient (BNVA) | payer OTHER, SELFPAY | PROVIDERS: PCP Nurse Practitioner Family; Visit Provider Surgery | DX: Z03.89 Encounter for observation for other suspected diseases and conditions ruled out (principal) | CPT/HCPCS: 99211 ==

== ENCOUNTER 2024-12-19 09:07 | Outpatient (AMB) | payer OTHER, SELFPAY ==
[2024-12-19 09:28] VITALS: BP 124/80; PULSE 84; BMI 30.5
--- NOTE | 2024-12-19 09:28 | A.OFFVIS_ITS ---
Vital Signs 12/19/24 09:28 Height 5 ft 3 in Weight 172 lb BMI 30.5 BP 124/80 Blood Pressure Location Lt brachial Position Sitting Pulse 84 Intake Visit Reasons: suture removal Intake Note: Patient here s/p rt scalp excision on 12-05-2024. No cyst was identified. Patient c/o: 1 suture removed without incident. Academic Support Assistant Required: No Accompanied by: Self / Same As Patient Allergies codeine Allergy (Unknown, Verified 12/19/24 09:29) vomiting Sulfa (Sulfonamide Antibiotics) Allergy (Unknown, Verified 12/19/24 09:29) vomitting, vomiting HPI HPI suture removal: Details: Overall doing well, mild pain at the incision site. Once suture remains in place. Denies fever, chills. Denies any discharge or bleeding from the excision site. She is wondering when she can get her hair done PFS Medical History Monoallelic mutation of MUTYH gene Polyposis associated with heterozygous mutation in MUTYH gene Eczema Surgical History S/P excision of lipoma (04/12/22) History of right breast biopsy Family History Father Asthma Allergic rhinitis Rheumatoid arthritis Colon polyps FH: testicular cancer, Onset Age: 16 Mother History of skin cancer Paternal Grandfather Colon cancer, Onset Age: 75 Paternal Aunt Breast cancer Sister No problems noted. Sister No problems noted. Paternal Grandmother Breast cancer Paternal Uncle Mouth cancer Maternal Aunt History of uterine cancer Paternal Aunt Breast cancer Paternal Aunt Breast cancer Family/Other Breast cancer Mental health disorder Substance use disorder Social History Housing: Apartment Alcohol intake: current Alcohol intake frequency: holidays/special occasions only Patient Tobacco Use Status: Never used Tobacco e-Cigarette/Vaping Use: Never Used Second Hand Smoke Exposure: No service: No Current occupational status: employed Current occupation: [employer] Current occupational exposures/hazards: Yes Cognitive needs: No Hearing needs: No Vision needs: No Review of Systems Const All systems reviewed & are unremarkable except as noted in HPI and below Physical Exam Vital Signs: Last Vital Signs Pulse 84 12/19/24 09:28 BP 124/80 12/19/24 09:28 BMI result Body Mass Index 30.5 Const General: comfortable and no acute distress Orientation/consciousness: patient oriented x3 Skin Other: Right scalp: 1.5 cm incision site appears to be healing well 1 suture was removed. No surrounding erythema, no palpable fluid collection. Very mildly tender Neuro General: patient oriented x3 Assessment & Plan Assessment & Plan (1) Pilar cyst of scalp: Code(s): L72.11 - Pilar cyst Category: Medical (2) Visit for suture removal: Code(s): Z48.02 - Encounter for removal of sutures Category: Medical Plan 34-year-old female presenting to the office for suture removal following exploratory excision of a scalp mass. No mass was seen during the excision. Overall she is doing well, experiencing some pain when lying on that side. She denies any discharge from the area on exam the incision site appears to be healing well, the suture was removed in the office. At this point patient does not need to follow-up she can follow up as needed with any future concerns Coding Level of Care Code Est Pt Level 3 (12866) Diagnoses Pilar cyst of scalp L72.11 Visit for suture removal Z48.02
--- OUTSIDE RECORDS SUMMARY | 2024-12-19 09:34 | XMS_ITS | Patient Health Record ---
Author Organization [facility] [place] Address [address] [place] [address] Care Team Providers Care Weight Guesser Name Role Phone Mauricio Martinez Primary Care Provider Unav ailable Iveth Rubi Unavailable [phone] Allergies Allergen (clinical drug ingredient) Drug/Non Drug [...] Vaccine Route Administration Date Status Comme nts Influenza Unknown 03/22/2021 Administered COVID-19 Moderna Vaccine Unknown 03/22/2021 Administered First Dose: 05/22/2020 Second dose:05/30/2020 Social History Tobacco Use: Social History Observation [...] Problem Acquired hammer toe of left foot (8013395236908 103) Hammer toe of left foot (M20.42) Active confirmed Encounters Encounter Location Date Provider Diagnosis [facility] [address] [address] 09/12/2024 Iveth Rubi Plan Of Treatment Pending Test Test Name Order Date [id number] Destruction, 1-14 01/23/2013 Insurance Providers Payer Name Payer Address Payer Phone Subscriber Number Group Number Insured Name Patient Relationship to Insured Coverage Start Date Coverage End Date [facility] All Others [address] [place] [address] [phone] [id number] Ivteh Collins Self - patient is the insured Medical (General) History Medical History History ICD Code chronic sinusitis chicken pox warts sciatica allergies Covid 19 Surgical History Surgery Date(Month/Year) b/l vein ablation 03/12
--- OUTSIDE RECORDS SUMMARY | 2024-12-19 09:34 | XMS_ITS | Encounter Summary ---
Author Organization [facility] Address [address] [place] [id number] Phone Care Team Providers Care Dry Mixer Name Role Phone Mauricio Puente RIGGING MAN Primary Care Provider + Reason for Visit * Reason Onset Date Comments Medication Refill 12/17/2024 Encounter Details Date Type Department Care Team (Late st Contact Info) Description 12/17/2024 Refill [facility] [address] [place] [address] Casimiro Quezada RN [address] [place] [address] [email or web address] Medication Refill Social History Tobacco Use Types Packs/Day Years Used Date Smoking Tobacco: Never Smokeless Tobacco: Never Alcohol Use Standard Drinks/Week Comments Yes 0 (1 standard drink = 0.6 oz pur e alcohol) Socially Education Answer Date Recorded Are you interested in more education? Not on pepe e 09/17/2022 Are you concerned about learning? Not on file 09/17/2022 No 09/17/2022 No 09/17/2022 Digital Access Answer Date Recorded No 10/15/2022 No 10/15/2022 Reliable internet access at home? Not on file 10/15/2022 Device with a working camera? 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 As pt takes active pills continuously, this equates to about 6 packs per 4 months. Rx pended. Message to DIXIE HOOVER to review and sign if in agreement. documented in this encounter Plan of Treatment Not on file documented as of this encounter Visit Diagnoses Diagnosis Menorrhagia Excessive or frequent menstruation documented in this encounter Care Teams Dry Mixer Relationship Specialty Start Date End Date Mauricio Puente NP [address] [facility] [place] [address] [email or web address] PCP - General Family Medicine 04/07/18 documented as of this encounter Additional Source Comments The information contained in this document represents components of the legal health record. It is not the complete legal health record.[facility]
--- OUTSIDE RECORDS SUMMARY | 2024-12-19 09:35 | XMS_ITS | Clinical Summary ---
Author Organization [facility] Address [address] [place] [address] Care Team Providers Care Crocodile Farmer Name Role Phone Mauricio Puente MD Primary [...] Info) Description 02/27/2025 8:[address] [facility] Plastic & Reconstructive Surgery [address] [place] [address] Faiza Garcia MD [address] [facility] [address] [place] [address] Brenda Villegas MD [address] [facility] [address] [place] [address] Health Maintenance Due Date Last Done Comments [...] complete [place] [id number] [facility] OUT [facility] Care Teams Crocodile Farmer Relationship Specialty Start Date End Date Mauricio Puente MD [address] [place] [phone] PCP - General Family Medicine 07/20/24
--- OUTSIDE RECORDS SUMMARY | 2024-12-19 09:35 | XMS_ITS | Clinical Summary ---
Author Organization [facility] [employer] Address [address] [place] [address] Care Team Providers Care Soft Sugar Cutter Name Role Phone No, Pcp AUTO FLEET MAINTENANCE MANAGER Primary Care Provider Unavailabl e Medications desogestrel-ethi [...] Due Date Last Done Comments DTaP/Tdap/Td Vaccines ([facility]) (6 - Tdap) 11/07/1999 12/18/1992, 02/08/1990, 05/05/1989, Additional history exists Depression: Screening Annually using PHQ-2/9 in Adults 18 yrs or above (or HM Modifier)([facility]) 2006 Hepatitis C Virus Infection in Adolescents and Adults: Screening (or Modifier) ([facility]) 2006 [facility] Screening Reminder: Annually for all adults ([facility]) 2006 Tobacco Smoking Cessation: i n Adults excluding Women: Behavioral and Pharmacotherapy Interventions ([facility]) 2006 Cervical Cancer: hrHPV alone or with cotesting Pap for Pts 30-65yrs screening every 5yrs ([facility]) 2009 Cervical Cancer Screenin-65 yrs of age (or Modifier) 09/14/2021 Cervical Cancer Screening: Pap every 3 yrs pts age 21-65 09/14/2021 09/14/2018 Cervical Cancer: Pap Screening with Modifier timing ([facility]) 09/14/2021 09/14/2018 COVID-19 Vaccine Screening: Initial Series and Booster Status ([facility]) (2023- season) 2024 Flu Vaccination: Yearly for ages 18mos through 64 years (or Modifier)([facility]) 12/21/2024 Zoster/Shingles Vaccine Series Screening: Adults aged 18+ yrs (or HM Modifiers)([facility]) (1 of 2) 2038 Pneumococcal Vaccination Screening: Pts 0-19 & 19-49 yrs of age ([facility]) Aged Out No longer eligible based on patient's age to complete this topic Medical Devices Not on file Insurance [facility] Care Teams Soft Sugar Cutter Relationship Specialty Start Date End Date No, Pcp, AUTO FLEET MAINTENANCE MANAGER N/A Do not use PCP - General 02/20/20
== END 2024-12-19 09:34 | disposition home or self-care (01) ==
LOC: HO.HGS 09:08
PROVIDERS: PCP Nurse Practitioner Family
DX: L72.11 Pilar cyst (principal); Z48.02 Encounter for removal of sutures
CPT/HCPCS: 99213

== ENCOUNTER 2025-02-20 09:06 | Outpatient (AMB) | payer OTHER, SELFPAY ==
[2025-02-20 09:22] VITALS: BP 114/80; PULSE 74; RESP 16; O2SAT 97; BMI 29.4
--- NOTE | 2025-02-20 09:22 | MHC.PC.OV ---
Vital Signs 02/20/25 09:22 Height 5 ft 3 in Weight 166 lb BMI 29.4 BP 114/80 Blood Pressure Location Lt brachial Position Sitting Respiration 16 Pulse 74 Pulse Source Pulse Oximeter Pulse Oximetry (%) 97 Oxygen Delivery Method Room Air Intake Visit Reasons: Annual PE Digital Strategist Senior Manager Required: No Accompanied by: Self / Same As Patient Allergies codeine Allergy (Unknown, Verified 02/20/25 09:51) vomiting Sulfa (Sulfonamide Antibiotics) Allergy (Unknown, Verified 02/20/25 09:51) vomitting, vomiting Medication List - Last Reconciled 02/20/25 by Mauricio Puente, [facility] desogestrel-ethinyl estradiol 0.15-0.03 mg 1 tab PO DAILY fexofenadine (Keiko Allergy) 180 mg PO DAILY fluticasone propionate 50 mcg/actuation (Allergy Relief (fluticasone)) 1 spray intranasal DAILY lorazepam 1 mg PO DAILY PRN multivitamin 1 tab PO DAILY tirzepatide (weight loss) (Zepbound) 7.5 mg subcut QWEEK Tobacco use date assessed: 02/20/25 Dental Screening Dental Screen Date: 02/20/25 Did you have a dental visit in the last 12 months?: Yes Did you have a dental problem in the last 6 months where you did not have access to dental care?: No HPI Annual PE HPI Details History of Present Illness The patient is a 34-year-old female presenting for a physical exam. She denies experiencing any chest pain, dyspnea, abdominal pain, hematochezia, constipation, diarrhea, suicidal ideation, or homicidal ideation. She is at high risk for breast cancer and colon cancer, with a colon cancer screening due for next year. 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 Laboratory tests have been ordered, and she will complete them fasting in the near future. Health Maintenance - Colon cancer screening up to date - Regular MRIs and mammograms (high risk breast ca) Social History Review of Systems - Cardiovascular: Denies chest pain - Respiratory: Denies dyspnea - Gastrointestinal: Denies abdominal pain, hematochezia, constipation, diarrhea - Psychiatric: Denies suicidal ideation, homicidal ideation Physical Exam General: Cooperative, healthy appearing, comfortable, no acute distress and well developed, obese Orientation: Patient oriented x3 Limitations: No limitations Head: Normal to inspection Ears: Hearing grossly normal bilaterally Nose: Normal external nose present Face and sinus: Normal facial exam Eyes: Appearance normal, both eyes and all related structures Neck: Normal visual inspection and Yes full ROM Respiratory: Normal respiratory effort and able to speak in complete sentences. Clear to auscultation bilaterally Cardiovascular: Regular rate and rhythm. Normal S1 and S2 GI: Normal to inspection. 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 Sister No problems noted. Paternal Grandmother Breast cancer Paternal Uncle Mouth cancer Maternal Aunt History of uterine cancer Paternal Aunt Breast cancer Paternal Aunt Breast cancer Family/Other Breast cancer Mental health disorder Substance use disorder Social History Housing: Apartment Alcohol intake: current Alcohol intake frequency: holidays/special occasions only Patient Tobacco Use Status: Never used Tobacco e-Cigarette/Vaping Use: Never Used Second Hand Smoke Exposure: No service: No Current occupational status: employed Current occupation: [employer] Current occupational exposures/hazards: Yes Cognitive needs: No Hearing needs: No Vision needs: No Questionnaire PHQ-9 Over the last 2 weeks, how often have you been bothered by any of the following problems? 1. Little interest or pleasure in doing things: not at all 2. Feeling down, depressed, or hopeless: not at all 3. Trouble falling or staying asleep, or sleeping too much: not at all 4. Feeling tired or having little energy: not at all 5. Poor appetite or overeating: not at all 6. Feeling bad about yourself - or that you are a failure or have let yourself or your family down: not at all 7. Trouble concentrating on things, such as reading the newspaper or watching television: not at all 8. Moving or speaking so slowly that other people could have noticed. Or the opposite - being so fidgety or restless that you have been moving around a lot more than usual: not at all 9. Thoughts that you would be better off or of hurting yourself in some way: not at all Total score: 0 Depression Screening Interpretation: Negative Depression Screening Done: Yes 32135 - PHQ-9 Billing: Yes Source: Developed by Drs. Garrison Gomez, Essence Coats, Christian Lara and colleagues, with an educational chely from [employer]. Thrive Questionnaire Date Thrive assessed: 10/31/23 I am a: Patient What is your living situation today?: I have a steady place to live Within the past 12 months, did the food you bought not last and you didn't have the money to get more?: Never true Within the past 12 months, did you worry whether your food would run out before you got money to buy more?: Never true Do you have trouble paying for medicines?: No Do you have trouble getting transportation to medical appointments?: No Do you have trouble paying your heating and electricity bill?: No Do you have trouble taking care of your child, family member or friend?: No Do you have trouble with day-to-day activities such as bathing, preparing meals, shopping, managing finances, etc.?: No Are you currently unemployed and looking for a job?: No Are you interested in more education?: No Please select the resources that you would like help with: None Currently or been in a relationship where the following occur: No concerns reported THRIVE Score: 0 AUDIT C Alcohol Use Questionnaire (AUDIT-C) 1. How often do you have a drink containing alcohol?: 2-4 times a month 2. How many drinks containing alcohol do you have on a typical day when you are drinking?: 1 or 2 3. How often do you have six or more drinks on one occasion?: Never Total Score: 2 Score Reviewed/Action Taken: Yes NICOLASA-7 AMB Questionnaire NICOLASA-7 Date NICOLASA - 7 assessed: 02/20/25 Feeling nervous, anxious, or on edge: 0 = Not at all Not being able to stop or control worryin = Not at all Worrying too much about different things: 0 = Not at all Trouble relaxin = Not at all Being so restless that it is hard to sit still: 0 = Not at all Becoming easily annoyed or irritable: 0 = Not at all Feeling afraid as if something awful might happen: 0 = Not at all Total NICOLASA-7 score (0-4 normal; 5-9 mild; 10-14 moderate; 15-21 severe): 0 Source: Developed by Drs. Garrison Gomez, Essence Coats, Christian Lara and colleagues, with an educational chely from [employer]. NICOLASA-7 Assessment Billing NICOLASA-7 Assessment Tool: NICOLASA-7 Assessment 97734 Physical exam (Primary Care) Vital Signs: Last Vital Signs Pulse 74 02/20/25 09:22 Resp 16 02/20/25 09:22 BP 114/80 02/20/25 09:22 Pulse Ox 97 02/20/25 09:22 Oxygen Delivery Method Room Air 02/20/25 09:22 BMI result Body Mass Index 29.4 Tobacco/Smoking Status: Tobacco use Status Tobacco use date assessed 02/20/25 02/20/25 09:28 Patient Tobacco Use Status Never used Tobacco 02/20/25 09:28 e-Cigarette/Vaping Use Never Used 02/20/25 09:28 PHQ-9: PHQ-9 Score PHQ-9: Total score 0 02/20/25 09:28 Depression Screening Interpretation: Negative Thrive Assessment: Date of Thrive Assessment Date Thrive assessed 10/31/23 02/20/25 09:28 Currently or been in a relationship where the following occur: No concerns reported Coding Level of Care Code Est Pt Prev Care 18-39y(30779) Diagnoses Encounter for physical examination Z00.00 Additional Codes NICOLASA-7 Assessment Billing - NICOLASA-7 Assessment Tool: NICOLASA-7 Assessment 66921 ([id number]) PHQ-9 - 12739 - PHQ-9 Billing: Yes ([id number]) Assessment & Plan Assessment & Plan (1) Encounter for physical examination: Code(s): Z00.00 - Encounter for general adult medical examination without abnormal findings Category: Medical Plan . Orders: Orders Complete Blood Count Auto Diff Today Z00.00 - Encounter for general adult medical examination without abnormal findings Comprehensive [place]. Panel Fast Today Z00.00 - Encounter for general adult medical examination without abnormal findings Lipid Panel Today Z00.00 - Encounter for general adult medical examination without abnormal findings TSH reflex Free T4 Today Z00.00 - Encounter for general adult medical examination without abnormal findings UA CC w/rflx Micro + Cult Today Z00.00 - Encounter for general adult medical examination without abnormal findings
--- OUTSIDE RECORDS SUMMARY | 2025-02-20 09:48 | XMS_ITS | Clinical Summary ---
Author Organization [facility] Address [address] [place] [address] Care Team Providers Care Machine Maintenance Technician Name Role Phone Liliya Puente MD Primary Care Provider Allergies Active [...] Once a day for 28 day(s) Active Multiple Vitamins-Minera ls (multivitamin with minerals) tablet Take 1 tablet by mouth daily. Active Encounters Date Type Department Care Team Description 01/04/2025 9:30 AM EDT Office Visit [facility] [place] [address] [place] [address] Davide Holman MD Sore throat (Primary Dx); Dysphonia; Throat clearing; Glottic edema; Chronic rhinitis; Gastroesophageal reflux disease, unspecified whether esophagitis present from Last 3 Months Immunizations Immunization Administration Dates Next Due Covid-19 [...] Date Smoking Tobacco: Never Smokeless Tobacco: Never Tobacco Cessation:Counseling Given: Not Answered Alcohol Use Standard Drinks/Week Comments Yes 0 [...] EDT Inhaled Oxygen Concentration - - Weight 76.7 kg (169 lb) 01/04/2025 9:29 AM EDT Height 160 cm (5' 3 ) 01/04/2025 9:29 AM EDT Body Mass Index 29.94 01/04/2025 9:29 AM EDT Plan of Treatment Upcoming Encounters Date Type Department Care Team (Late st Contact Info) Description 02/27/2025 8:45 AM EDT Consult [facility] [place] [address] [facility] [place] [address] Faiza Garcia MD [address] [facility] [address] [facility] [address] [place] [address] Brenda Villegas MD [address] [facility] [place] [address] Health Maintenance Due Date Last Done Comments Hepatitis C Virus Screening 1988 HIV Screening 2001 DTaP/Tdap/Td Vaccines (1 - Tdap) 11/07/2007 Hepatitis B Vaccines (1 of 3 - 19+ 3-dose series) 11/07/2007 Pap Smear (Ages 21-65) 2009 Influenza Vaccine 12/21/2024 02/21/2024, , 03/04/2020, Additional history exists COVID-19 Vaccine (2024- season) 2025 03/22/2021, 06/19/2020, 05/22/2020 HPV Vaccines (No Doses Required) Completed Pneumococcal Vaccine: Pediatric (0-5 Years) and At-Risk Patients (6 to 49 Years) Aged Out No longer eligible based on patient's age to complete this topic Procedures Procedure Name Priority Date/Time Associated Diagnosis Comments MM MAMMO SCREENING W/ TOMOSYNTHESIS BILATERAL Routine 01/23/2025 10:31 AM EDT Abnormal MRI, breast Encounter for screening mammogram for high-risk patient Family history of breast cancer Extremely dense tissue of both breasts on mammography from Last 3 Months Results * MM Breast tomosynthesis screening-Bilateral (01/23/2025 10:31 AM EDT) Anatomical Region Laterality Modality Breast Bilateral Mammography 01/23/2025 8:15 AM EDT 01/23/2025 8:15 AM EDT Narrative 01/28/2025 3:10 PM EDT HISTORY: Patient is 34 years old and is seen for screening. The patient has a history of right MRI Guided Core Biopsy in June, - benign. The patient has no personal history of ovarian cancer. The patient has the following family history of breast cancer: 2 paternal aunts, breast cancer. FILMS COMPARED: The present examination has been compared to prior imaging studies dated 11/14/2023, 06/28/2024 and 07/03/2024. SHEILA STATEMENT: Computer-aided detection was utilized by the radiologist in the interpretation of this examination. 3D tomosynthesis digital mammographic images were obtained using standard projections. MAMMOGRAM FINDINGS: The breasts are extremely dense, which lowers the sensitivity of mammography. (ACR BIRADS density Category d) * There are two biopsy clips seen in the right breast. In the left breast, no suspicious masses, calcifications or other abnormalities are seen. IMPRESSION: There is no mammographic evidence of malignancy. Routine follow-up mammogram at age 40 is recommended. The patient will receive a lay summary of the results of this breast imaging exam. Lay summaries for mammography examinations will also identify the patients personal breast tissue composition as required by state law. BIRADS Category 2: Benign Thank you for referring your patient to us, Isidra Viramontes MD [id number] (Electronically Signed - 01/28/2025 15:10) Copy: LILIYA SHARMA MD [facility] [address] [place] [address] [address] [place], [place] [address] Procedure Note Isidra Viramontes MD - 01/28/2025 HISTORY: Patient is 34 years old and is seen for screening. The patient has a history of right MRI Guided Core Biopsy in - benign. The patient has no personal history of ovarian cancer. The patient has the following family history of breast cancer: 2 paternalaunts, breast cancer. FILMS COMPARED: The present examination has been compared to prior imaging studies dated11/14/2023, 06/28/2024 and 07/03/2024. SHEILA STATEMENT: Computer-aided detection was utilized by the radiologist in theinterpretation of this examination. 3D tomosynthesis digital mammographic images were obtained using standardprojections. MAMMOGRAM FINDINGS: The breasts are extremely dense, which lowers the sensitivity ofmammography. (ACR BIRADS density Category d) * There are two biopsy clips seen in the right breast. In the left breast, no suspicious masses, calcifications or otherabnormalities are seen. IMPRESSION: There is no mammographic evidence of malignancy. Routine follow-up mammogram at age 40 is recommended. The patient will receive a lay summary of the results of this breastimaging exam. Lay summaries for mammography examinations will alsoidentify the patients personal breast tissue composition as required bystate law. BIRADS Category 2: Benign Thank you for referring your patient to us, Isidra Viramontes MD [id number] (Electronically Signed - 01/28/2025 15:10) Copy: LILIYA SHARMA MD [facility] [address] [place] [address] us Faiza Garcia MD IMG MAMMOGRAPHY ORDERABLES Fin al Result from Last 3 Months Insurance [facility] Care Teams Machine Maintenance Technician Relationship Specialty Start Date End Date Liliya Puente MD [address] [place] [address] PCP - General Family Medicine 07/20/24
--- OUTSIDE RECORDS SUMMARY | 2025-02-20 09:48 | XMS_ITS | Clinical Summary ---
Author Organization [facility] Address [address] [place] [address] Care Team Providers Care Floor Assembler Name Role Phone Mauricio Puente NP Primary Care Provider [phone] Allergies Active Allergy Reactions Criticality Noted Date Comments Codeine Nausea/GI Upset 01/07/2025 Sulfa Antibiotics Nausea/GI Upset 01/07/2025 Medications Benzonatate (TESSALON) 100 MG capsule Take 1 capsule by mouth 3 (three) times a day. 4 Active Apri 0.15-30 MG-MCG per tablet 5 Active Cholecalciferol 125 MCG (5000 UT) Tab Take 1,000 Units by mouth. Active Fexofenadine HCl (ROSA) 60 MG tablet Take 60 mg by mouth. Active FLUTICASONE PROPIONATE, NASAL, (FLONASE) 50 MCG/ACT nasal spray Administer 1 spray into affected nostril(s). Active Encounters Date Type Department Care Team Description 01/07/2025 4:00 PM EDT Consult (Initial) [facility] Orth[facility] Surgery [address] [facility] [address] [place] [phone] Kasi Hatch PA Sprain of right ankle, unspecified ligament, initial encounter (Primary Dx) 12/28/2024 Telephone [facility] [address] [facility] [facility] [address] [place], [place] [id number] Kasi Hatch PA Patient Questions ; Return Call from Last 3 Months Social History Tobacco Use Types Packs/Day Years Used Date Smoking Tobacco: Never Tobacco Cessation:Counseling Given: Not Answered Alcohol Use Standard Drinks/Week Comments Yes 0 (1 standard drink = 0.6 oz pur e alcohol) social Comments Unknown Sex and Gender Information Value Date Recorded Sex Assigned at Not on file Legal Sex Female 1:11 PM EDT Gender Identity Not on file Sexual Orientation Not on file Plan of Treatment Health Maintenance Due Date Last Done Comments Hepatitis C Screening 1988 Pap Smear 2004 DTaP/Tdap/Td (1 - Tdap) 2006 Hep B (1 of 3 - 19+ 3-dose series) 11/07/2007 COVID-19 Vaccine (3 - 2024- season) 2025 06/19/2020, 05/22/2020 Influenza (#1) 2025 03/22/2021, 02/20, 03/17/2016, Additional history exists Zoster (Shingrix) (1 of 2) 2038 Mammogram/Breast Imaging Discontinued 11/14/2023 HPV Vaccine (No Doses Required) Completed Hep A Aged Out No longer eligi ble based on patient's age to complete this topic Hib Aged Out No longer eligi ble based on patient's age to complete this topic Meningococcal ACWY Aged Out No longer eligible based on patient's age to complete this topic Pneumococcal Aged Out No longer eligi ble based on patient's age to complete this topic Insurance [facility] Care Teams Floor Assembler Relationship Specialty Start Date End Date Mauricio Puente NP [address] [address] PCP - General Nurse Practitioner 01/16/25
--- OUTSIDE RECORDS SUMMARY | 2025-02-20 09:48 | XMS_ITS | Patient Health Record ---
Author Organization [facility] [place] Address [address] [place] [address] Care Team Providers Care Project Management Director Name Role Phone Mauricio Martinez Primary Care Provider Unav ailable Iveth Rubi Unavailable [phone] Allergies Allergen (clinical drug ingredient) Drug/Non Drug [...] Problem Acquired hammer toe of left foot ([id number] 103) Hammer toe of left foot (M20.42) Active confirmed Encounters Encounter Location Date Provider Diagnosis [facility] [address] [address] 09/12/2024 Iveth Rubi Plan Of Treatment Pending Test Test Name Order Date [id number] Destruction, 1-14 01/23/2013 Insurance Providers Payer Name Payer Address Payer Phone Subscriber Number Group Number Insured Name Patient Relationship to Insured Coverage Start Date Coverage End Date [facility] Others [address] [place] [address] [id number] Iveth Collins Self - patient is the insured Medical (General) History Medical History History ICD Code chronic sinusitis chicken pox warts sciatica allergies Covid 19 Surgical History Surgery Date(Month/Year) b/l vein ablation 03/12
--- OUTSIDE RECORDS SUMMARY | 2025-02-20 09:49 | XMS_ITS | Clinical Summary ---
Author Organization [facility] [employer] [facility] Address [address] [place] [address] Care Team Providers Care Customer Solutions Coordinator Name Role Phone No, Pcp FLIGHT SERVICE SPECIALIST Primary Care Provider Unavailabl e Medications desogestrel-ethi nyl estradiol (APRI) 0.15-0.03 mg tablet Take 1 tablet by mouth. Active levocetirizine (XYZAL) 5 MG tablet Take 5 mg by mouth. Active Immunizations Immunization Administration Dates Next Due Havrix Adult Prefilled [...] Due Date Last Done Comments DTaP/Tdap/Td Vaccines ([facility]) (6 - Tdap) 11/07/1999 12/18/1992, 02/08/1990, 05/05/1989, Additional history exists Depression: Screening Annually using PHQ-2/9 in Adults 18 yrs or above (or HM Modifier)([facility]) 2006 Hepatitis C Virus Infection in Adolescents and Adults: Screening (or Modifier) ([facility]) [address] [facility] Screening Reminder: Annually for all adults ([facility]) 2006 Tobacco Smoking Cessation: i n Adults excluding Women: Behavioral and Pharmacotherapy Interventions ([facility]) 2006 Cervical Cancer: hrHPV alone or with cotesting Pap for Pts 30-65yrs screening every 5yrs ([facility]) 2009 Cervical Cancer Screenin-65 yrs of age (or Modifier) 09/14/2021 Cervical Cancer Screening: Pap every 3 yrs pts age 21-65 09/14/2021 09/14/2018 Cervical Cancer: Pap Screening with Modifier timing ([facility]) 09/14/2021 09/14/2018 Flu Vaccination: Yearly for ages 18mos through 64 years (or Modifier)([facility]) 12/21/2024 COVID-19 Vaccine Screening: Initial Series and Booster Status ([facility]) ( - 2023- season) 2025 Zoster/Shingles Vaccine Series Screening: Adults aged 18+ yrs (or HM Modifiers)([facility]) (1 of 2) 2038 Pneumococcal Vaccination Screening: Pts 0-19 & 19-49 yrs of age ([facility]) Aged Out No longer eligible based on patient's age to complete this topic Medical Devices Not on file Insurance [facility] Care Teams Customer Solutions Coordinator Relationship Specialty Start Date End Date No, Pcp, FLIGHT SERVICE SPECIALIST N/A Do not use PCP - General 02/20/20
== END 2025-02-20 10:13 | disposition home or self-care (01) ==
LOC: HO.HMCC 09:07
PROVIDERS: PCP Nurse Practitioner Family; Visit Provider Nurse Practitioner Family
DX: Z00.00 Encounter for general adult medical examination without abnormal findings (principal)

== ENCOUNTER → 2025-02-20 09:06 | Outpatient (BNVA) | payer OTHER, SELFPAY | PROVIDERS: PCP Nurse Practitioner Family; Visit Provider Nurse Practitioner Family | DX: Z00.00 Encounter for general adult medical examination without abnormal findings (principal) | CPT/HCPCS: 96127 ==

== ENCOUNTER 2025-05-01 13:59 | Outpatient (REF) | payer OTHER, SELFPAY ==
--- OUTSIDE RECORDS SUMMARY | 2025-05-01 21:42 | XMS_ITS | Clinical Summary ---
Author Organization [facility] Address [address] [place] [address] Care Team Providers Care Annealing Torch Operator Name Role Phone Mauricio Puente NP Primary Care Provider Allergies Active Allergy Reactions [...] Encounters Date Type Department Care Team Description 05/01/2025 Telephone [facility] Orthopedic Surgery [address] [place] [phone] Kasi Hatch PA Imaging Study; Return Call 04/22/2025 4:45 PM EST Radiology [facility] Xray [address] [address] Chronic toe pain, right foot 04/22/2025 4:30 PM EST Office Visit [facility] Orthopedic Surgery [address] [phone] Kasi Hatch PA Chronic toe pain, right foot (Primary Dx) from Last 3 Months Social History Tobacco [...] Orientation Not on file Plan of Treatment Upcoming Encounters Date Type Department Care Team ([facility] st Contact Info) Description 05/27/2025 4:20 PM EST Consult (Initial) [facility] Orthopedic Surgery [address] 123 [facility] [address] [place] [phone] Citlali Gagnon MD [address] [place] [address] Right ankle pain Health Maintenance Due Date Last Done Comments Hepatitis C Screening 1990 Pap Smear 2004 DTaP/Tdap/Td (1 - Tdap) 2006 Hep B (1 of 3 - 19+ 3-dose series) 11/07/2007 COVID-19 Vaccine ( season) 2025 03/22/2021, 06/19/2020, 05/22/2020 Influenza (#1) 2025 03/22/2021, 02/20, 03/17/2016, Additional history exists Zoster (Shingrix) (1 of 2) 2038 Mammogram/Breast Imaging Discontinued 025, 01/23/2025, 11/14/2023 Colonoscopy Discontinued HPV Vaccine (No Doses Required) Completed Hep [...] patient's age to complete this topic Procedures * Due to [place] [employer] law, this organization might not be sharing negative HIV tests. Procedure Name Priority Date/Time Associated Diagnosis Comments XRAY FOOT COMPLETE MIN 3 VWS - RIGHT Routine 04/22/2025 4:45 PM EST Chronic toe pain, right foot from Last 3 Months Results * Due to [place] state law, this organization might not be sharing negative HIV tests. * XRAY FOOT COMPLETE MIN 3 VWS - RIGHT (04/22/2025 4:45 PM EST) Anatomical Region Laterality Modality LOWER EXTREMITY Computed Radiogr aphy Narrative 04/23/2025 8:55 AM EST Patient History: right great toe pain CONTRAST: 3 view right foot Comparison: None provided Findings: Bones intact. No dislocations. No significant loss of joint space, osteophytes, or erosions. No ankle effusion. No radiopaque foreign body. Normal soft tissue. IMPRESSION: Normal right foot. Procedure Note Brenda Duque MD - 04/23/2025 Patient History: right great toe pain CONTRAST: 3 view right foot Comparison: None provided Findings: Bones intact. No dislocations. No significant loss of joint space, osteophytes, or erosions. No ankle effusion. No radiopaque foreign body. Normal soft tissue. IMPRESSION: Normal right foot. Kasi FLORIAN IMG XRAY NO CONTRAST ORDERABLE S Final Result from Last 3 Months Insurance [facility] Care Teams Annealing Torch Operator Relationship Specialty Start Date End Date Mauricio Puente NP [address] [phone] PCP - General Nurse Practitioner 01/16/25
--- OUTSIDE RECORDS SUMMARY | 2025-05-01 21:42 | XMS_ITS | Encounter Summary ---
Author Organization [facility] Address [address] [place] [address] Care Team Providers Care Hazardous Material Technician Name Role Phone Mauricio Puente NP Primary Care Provider Reason for Visit * Reason Comments Imaging Study Return Call Encounter Details Date Type Department Care Team (Late Contact Info) Description 05/01/2025 Telephone [facility] Orthopedic Surgery [address] [phone] Kasi Hatch PA [address] [place] [phone] Imaging Study; Return Call Social History Tobacco Use Types Packs/Day Years Used Date Smoking Tobacco: Never Alcohol Use Standard Drinks/Week Comments Yes 0 (1 standard drink = 0.6 oz pur e alcohol) social Comments Unknown Sex and Gender Information Value Date Recorded Sex Assigned at Not on file Legal Sex Female 1:11 PM EDT Gender Identity Not on file Sexual Orientation Not on file documented as of this encounter Miscellaneous Notes * Telephone Encounter - Giulia Burgess - 05/01/2025 10:50 AM EST Pt called asking for the results of her xrays she had on 04/22. Please call her at [phone]. Please leave a voice mail if she doesn't answer as she has other appts today. Thanks documented in this encounter Plan of Treatment Upcoming Encounters Date Type Department Care Team (Late Contact Info) Description 05/27/2025 4:20 PM EST Consult (Initial) [facility] Orthopedic Surgery [address] [phone] Citlali Gagnon MD [address] [place] [phone] Right ankle pain documented as of this encounter Visit Diagnoses Not on filedocumented in this encounter Care Teams Hazardous Material Technician Relationship Specialty Start Date End Date Mauricio Puente NP [address] [address] PCP - General Nurse Practitioner 01/16/25 documented as of this encounter
--- OUTSIDE RECORDS SUMMARY | 2025-05-01 21:43 | XMS_ITS | Clinical Summary ---
Author Organization [facility] Address [address] [place] [address] Care Team Providers Care Dairy Farm Worker Name Role Phone Mauricio Puente NP Primary [...] Take 1 tablet by mouth daily. Active Immunizations Immunization Administration Dates Next Due [...] 01/04/2025 9:29 AM EDT Plan of Treatment Health Maintenance Due Date Last Done Comments Hepatitis C Virus Screening 1988 HIV Screening 2001 DTaP/Tdap/Td Vaccines (1 - Tdap) 11/07/2007 Hepatitis B Vaccines (1 of 3 - 19+ 3-dose series) 11/07/2007 Pap Smear (Ages 21-65) 2009 Influenza Vaccine 12/21/2024 02/21/2024, , 03/04/2020, Additional history exists COVID-19 Vaccine ( season) 2025 03/22/2021, 06/19/2020, 05/22/2020 HPV Vaccines (No Doses Required) Completed Pneumococcal Vaccine: Pediatric (0-5 Years) and At-Risk Patients (6 to 49 Years) Aged Out No longer eligible based on patient's age to complete this topic Insurance [facility] Care Teams Dairy Farm Worker Relationship Specialty Start Date End Date Mauricio Puente NP [address] [place] [address] PCP - General Family Medicine 07/20/24
--- OUTSIDE RECORDS SUMMARY | 2025-05-01 21:43 | XMS_ITS | Clinical Summary ---
Author Organization [facility] Address [address] [place] [phone] Phone Care Team Providers Care Gym Supervisor Name Role Phone Mauricio Puente SENIOR ORACLE SOA DEVELOPER Primary Care Provider + Allergies Active Allergy Reactions Criticality Noted Date Comments Adhesive Rash Low 08/21/2021 Sulfamethoxazole-Trimethoprim Nausea and/or Vomiting 04/07/2018 Codeine Nausea and/or Vomiting 04/07/2018 Trimethoprim 06/25/2020 Medications fexofenadine (ROSA) 60 MG tablet Take 60 mg by mouth daily. Active fluticasone propionate (FLONASE) 50 mcg/actuation nasal spray 1 spray by Nasal route daily. Active multivitamin Liqd Take 5 mL by mouth daily. Active omega-3 fatty acids-fish oil 340-1,000 mg Cap Take by mouth daily. Active B.animalis,bifi d,infantis,long (PROBIOTIC 4X ORAL) Take by mouth. Active cholecalciferol (VITAMIN D3) 5,000 unit tablet Take 1,000 Units by mouth daily. Active desogestreL-eth inyl estradioL (APRI) 0.15-0.03 mg per tabletIndicatio ns:Menorrhagia Take one tablet by mouth daily. Pt takes active pills continuously, skipping placebo pills. 168 tablet 2 12/17/2024 Active Active Problems No known active problems Immunizations Immunization Administration Dates Next Due DTP 12/18/1992, 0,05/05/1989,03/03,01/06/1989 HPV,quadrivalent 11/16/2007,07/13/2007, 7 Hepatitis A, Adult 10/18/2018 Hepatitis B 07/27/2000,02/23/2000,01/21/2000 Hib,PRP-T 05/09/1990 INFLUENZA, SPLIT VIRUS, TRIVALENT PF 03/22/2021 INFLUENZA, SPLIT VIRUS, TRIV ALENT W/ PRESERVATIVE IM 03/17/2016,05/11/2007 IPV 12/18/1992, 0,03/03/1989,01/06 Influenza Quadrivalent w/ Pr eservative IM 03/07/2017 MMR 01/21/2000,02/08/1990 Meningococcal MCV4P 02/10/2006 Td (adult),2 Lf Tetanus Toxo id, PF, Adsorbed 01/20/2001 Tdap 09/13/2018 Family History Medical History Relation Comments Hypertension Father Testicular cancer Father Hereditary Non-Polyposis Col orectal Cancer (Martinez Syndrome) Maternal Aunt Uterine cancer Maternal Aunt Basal cell carcinoma Mother Skin cancer Mother Breast cancer Paternal Aunt Breast cancer Paternal Great-Grandfather Relation Status Comments Father Alive Maternal Aunt Mother Alive Paternal Aunt Paternal Great-Grandfather Social History Tobacco Use Types Packs/Day Years [...] 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 Not on file Not on file Last Filed Vital Signs Vital Sign Reading Time Taken Comments Blood Pressure 126/74 08/01/2024 3:38 PM EDT Pulse 111 04/07/2018 8:00 PM EST Temperature 37 C (98.6 F) 04/07/2018 9:00 PM EST Respiratory Rate 17 04/07/2018 8:00 PM EST Oxygen Saturation 99% 04/07/2018 8:00 PM EST Inhaled Oxygen Concentration - - Weight 77.6 kg (171 lb) 08/01/2024 3:38 PM EDT Height 162.6 cm (5' 4 ) 07/18/2023 3:40 PM EST Body Mass Index 29.35 07/18/2023 3:40 PM EST Plan of Treatment Health Maintenance Due Date Last Done Comments DEPRESSION SCREENING 2000 HEPATITIS C SCREENING 2006 HIV ONE-TIME SCREENING (18-65 YEARS) 2006 SCREENING FOR DIABETES 11/07/2023 04/07/2018 INFLUENZA VACCINE (#1) 2024 , 03/22/2021, 03/07/2017, Additional history exists COVID-19 VACCINE ( season) 2025 02/05/2022, 03/13/2021 PAP SMEAR 02/26/2025 02/26/2022, 08/22, 09/14/2018 Adult Td,Tdap Booster 09/13/2028 09/13/2018, 001 HIB VACCINES Completed 05/09/1990 MENINGOCOCCAL VACCINES (ACWY) Completed 02/10/2006 HEPATITIS A VACCINES Aged Out 10/18/2018 No long er eligible based on patient's age to complete this topic SMOKING STATUS SCREENING (Once After 26 Yrs) Completed 08/01/2024 MENINGOCOCCAL VACCINES (B) Aged Out N o longer eligible based on patient's age to complete this topic PNEUMOCOCCAL VACCINES (0-49 years) Aged Out No longer eligible based on patient's age to complete this topic Medical Devices Not on file Procedures Procedure Name Priority Date/Time Associated Diagnosis Comments PAP TEST Routine 02/26/2022 12:00 AM EDT from Last 3 Months or Most Recently Relevant to Health Maintenance Results * Pap Smear (02/26/2022 12:00 AM EDT) 02/26/2022 03/01/2022 9:3 0 AM EDT Narrative SEE NARRATIVE - 03/04/2022 10:40 [place] [address] Driller Hand: Michaela Angulo MD CEMENT SPRAYER HELPER Cytology Report FINAL DIAGNOSIS A. PAP SMEAR (SUREPATH) CE: SPECIMEN ADEQUACY: Satisfactory for evaluation; transformation zone present. INTERPRETATION: NEGATIVE FOR INTRAEPITHELIAL LESION OR MALIGNANCY. Electronically Signed Out By: ESME Coto(ASCP) The Pap test is a screening test primarily for squamous cancers and precursors and has associated false-negative and false-positive results. New technologies such as liquid-based preparations may decrease but will not eliminate all false-negative results. Regular sampling and follow-up of unexplained clinical signs and symptoms are recommended to minimize false negative results. PROCEDURES/ADDENDA HPV Testing (Requested) Ordered Date: 03/01/2022 A. PAP SMEAR (SUREPATH) CE: Human Papilloma Virus Test Negative for high-risk human papillomavirus types 16, 18, 45 and the Other high risk probe set (Includes 31, 33, 35, 39, 51, 52, 56, 58, 59, 66, 68) by [email or web address] Onclarity HR-HPV analysis. Clinical correlation is advised. This HPV test was performed at [facility], [address] [place] [address]. This test has been FDA approved for SurePath cervical cytology specimens. The accuracy and precision of this test for all other specimen sources has been verified in the Cytopathology Laboratory of the [facility] and has not been cleared or approved by the U.S. Food and Drug Administration. Clinical correlation is advised. CLINICAL HISTORY Date of Last Menstrual Period: Not Provided Menstrual History: No Menses Contraceptive History: OCPs Other Clinical Conditions: Screening Pap SPECIMEN SOURCE A: PAP SMEAR (SUREPATH) CE Patient Name: DUC GONZALEZ : 1990 (Age: 31) Sex: F Institution: [facility] Location: [facility] Date of Collection: 02/26/2022 Date of Reported: 03/04/2022 10:40 Results to: Viky Noland MSN Viky Noland CNM CYTOLOGY ORDERABLES Final Result SEE NARRATIVE from Last 3 Months or Most Recently Relevant to Health Maintenance Insurance Care Teams Gym Supervisor Relationship Specialty Start Date End Date Mauricio Puente NP [address] [place] [address] PCP - General Family Medicine 04/07/18 Additional Source Comments The information contained in this document represents components of the legal health record. It is not the complete legal health record.[facility]
[2025-05-02 12:08] LABS: Anti Nuclear Antibody Screen NEGATIVE (NEGATIVE)
== END 2025-05-01 14:00 | disposition home or self-care (01) ==
LOC: HO.HMGCLDS 13:59
PROVIDERS: PCP Nurse Practitioner Family; Visit Provider Nurse Practitioner Family
DX: H15.109 Unspecified episcleritis, unspecified eye (principal)
CPT/HCPCS: 36415; 85652; 86038; 86140; 86147; 86200; 86225; 86235; 86255; 86431